=== PATIENT | female | born 1975 | race Caucasian/White ===

== ENCOUNTER → 2017-03-20 | Outpatient (CLI) | payer MEDICARE, MEDICAID ==
[~2017-03-20] MED LIST: /ESCI20TA PO; KEPP1000 PO; TOPA100T PO
[2017-03-22 10:15] LABS: TOPIRAMATE LEVEL 19.8 ug/mL (2.0-25.0)
== END ==
LOC: M LAB 08:39
PROVIDERS: ATTEND Physician Assistant Medical
DX: R56.9 Unspecified convulsions (principal); E55.9 Vitamin D deficiency, unspecified; Z51.81 Encounter for therapeutic drug level monitoring; Z79.899 Other long term (current) drug therapy

== ENCOUNTER 2017-09-10 11:50 | Emergency (ER) | payer MEDICARE, MEDICAID ==
[~2017-09-10] VITALS: Ht 160 cm; Wt 56.8 kg
[~2017-09-10 11:50] MED LIST changes: -AMOX875T PO
[2017-09-10] MEDS ORDERED: AMOX875T PO (12:00)
[2017-09-10 13:09] LABS: BASO % 0.6 % (0.0-1.0); EOS # 0.1 10^3/uL (0.0-0.50); EOS % 1.9 % (0.0-3.0); IMMATURE GRANULOCYTE % 0.4 % (0-0); LYMPH # 1.5 10^3/uL (1.5-4.5); LYMPH % 29.3 % (24.0-44.0); MEAN CORPUSCULAR HEMOGLOBIN 30.6 pg (27.0-33.0); MEAN CORPUSCULAR HGB CONC 32.6 g/dl (32.0-36.5); MEAN CORPUSCULAR VOLUME 93.9 fl (80.0-96.0); MONO # 0.6 10^3/uL (0.0-0.8); MONO % 10.8 % (0.0-5.0); PLATELET COUNT, AUTOMATED 250 10^3/uL (150-450); RED CELL DISTRIBUTION WIDTH 12.9 % (11.5-14.5); WHITE BLOOD COUNT 5.2 10^3/uL (4.0-10.0)
[2017-09-10 13:33] LABS: ANION GAP 8 MEQ/L (8-16); BLOOD UREA NITROGEN 10 MG/DL (7-18); CARBON DIOXIDE LEVEL 23 MEQ/L (21-32); CHLORIDE LEVEL 110 MEQ/L (98-107); CREATININE FOR GFR 0.77 MG/DL (0.55-1.02); GLOMERULAR FILTRATION RATE > 60.0 (>58); GLUCOSE, FASTING 95 MG/DL (70-105); POTASSIUM SERUM 3.9 MEQ/L (3.5-5.1); SODIUM LEVEL 141 MEQ/L (136-145)
--- NOTE | 2017-09-10 14:10 | REP ---
CHEST X-RAY PA AND LATERAL: 09/10/2017 COMPARISON: 08/29/2012, 02/04/2006. CLINICAL HISTORY: Dyspnea and cough. There are clips in the left apex of the chest unchanged. Lungs are well inflated. There is no pleural effusion, lateral pleural thickening or apical scarring on the right. There is mild apical pleural thickening on the left. There is a right-sided aortic arch and descending aorta as seen on previous studies. Heart is mildly enlarged. There is no infiltrate, effusion or pulmonary edema. Bony thorax without compression deformity. IMPRESSION: 1. 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 or acute infiltrate. 2. Surgical clips in the left apex and some minor apical pleural scarring. No interval change. Signed by Dionicio Moise MD 09/10/2017 08:31 P
[2017-09-10 14:55] VITALS: BP 105/57
--- NOTE | 2017-09-11 06:50 | ECGEPIP ---
Stationary ECG Study [facility] - ED Test Date: 2017-09-10 Pat Name: DEMOND TOPETE Department: Room: - Gender: F Testing Engineer: courtney : 1975 Requested By: SUMAN Ordonez Order Number: [id number] Reading MD: Crow Roman Measurements Intervals Rison Rate: 72 P: 33 MI: 144 QRS: 99 QRSD: 113 T: 7 QT: 420 QTc: 462 Interpretive Statements SINUS RHYTHM RIGHT AXIS DEVIATION INCOMPLETE RIGHT BUNDLE BRANCH BLOCK POSSIBLE RIGHT VENTRICULAR HYPERTROPHY NONSPECIFIC T-WAVE ABNORMALITY SIMILAR TO 08/29/12 Electronically Signed On 09-11-2017 6:50:41 EST by Crow Roman
== END 2017-09-10 15:20 | disposition home or self-care (01) ==
LOC: M ED 11:50
DX: R07.9 Chest pain, unspecified (principal); R06.02 Shortness of breath; R56.9 Unspecified convulsions; F41.9 Anxiety disorder, unspecified; R51 Headache; Z95.1 Presence of aortocoronary bypass graft; Z51.81 Encounter for therapeutic drug level monitoring; Z79.899 Other long term (current) drug therapy; Z87.891 Personal history of nicotine dependence

== ENCOUNTER → 2017-09-10 | Outpatient (CLI) | payer MEDICARE, MEDICAID ==
[~2017-09-10] MED LIST changes: +AMOX875T PO
== END ==
LOC: M LAB 11:22
PROVIDERS: ATTEND Physician Assistant Medical
DX: R56.9 Unspecified convulsions (principal); Z51.81 Encounter for therapeutic drug level monitoring; Z79.899 Other long term (current) drug therapy

== ENCOUNTER → 2018-03-11 | Outpatient (REF) | payer MEDICARE, MEDICAID ==
[2018-03-13 00:06] LABS: TOPIRAMATE LEVEL 18.9 ug/mL (2.0-25.0)
[2018-03-14 00:08] LABS: LEVETIRACETAM (KEPPRA) 39.8 ug/mL (10.0-40.0)
== END ==
LOC: M LABNEURO 09:35
DX: G40.909 Epilepsy, unspecified, not intractable, without status epilepticus (principal)
CPT/HCPCS: 36415

== ENCOUNTER → 2018-08-14 | Outpatient (REF) | payer MEDICARE, MEDICAID ==
[2018-08-14 13:23] LABS: BASO % 0.6 % (0.0-1.0); EOS # 0.2 10^3/uL (0.0-0.50); EOS % 2.7 % (0.0-3.0); HEMATOCRIT 45.4 % (36.0-47.0); HEMOGLOBIN 14.5 g/dl (12.0-15.5); IMMATURE GRANULOCYTE % 0.1 % (0-3.0); LYMPH # 2.3 10^3/uL (1.5-4.5); LYMPH % 34.4 % (24.0-44.0); MEAN CORPUSCULAR HEMOGLOBIN 29.9 pg (27.0-33.0); MEAN CORPUSCULAR HGB CONC 31.9 g/dl (32.0-36.5); MEAN CORPUSCULAR VOLUME 93.6 fl (80.0-96.0); MONO # 0.5 10^3/uL (0.0-0.8); MONO % 7.8 % (0.0-5.0); NEUTROPHILS # 3.7 10^3/uL (1.8-7.7); NEUTROPHILS % 54.4 % (36.0-66.0); PLATELET COUNT, AUTOMATED 201 10^3/uL (150-450); RED BLOOD COUNT 4.85 10^6/uL (4.00-5.40); RED CELL DISTRIBUTION WIDTH 14.1 % (11.5-14.5); WHITE BLOOD COUNT 6.8 10^3/uL (4.0-10.0)
[2018-08-14 13:51] LABS: ERYTHROCYTE SEDIMENTATION RATE 2 mm/hr (0-20)
[2018-08-14 14:06] LABS: RHEUMATOID FACTOR QUANT 14.8 IU/ML (<15.0)
[2018-08-14 14:07] LABS: TOTAL 25(OH) VITAMIN D 17.4 NG/ML (30.0-100.0)
[2018-08-18 00:06] LABS: ANTINUCLEAR ANTIBODIES DIRECT Negative (Negative); TOPIRAMATE LEVEL 11.5 ug/mL (2.0-25.0)
[2018-08-19 09:10] LABS: DRVV SCREEN 35.4 SEC
[2018-08-19 09:14] LABS: PTT LUPUS TYPE ANTICOAG SCREEN 0.9 (0-1.2)
== END ==
LOC: M LABNEURO 10:28
DX: R51 Headache (principal); E55.9 Vitamin D deficiency, unspecified; G40.909 Epilepsy, unspecified, not intractable, without status epilepticus; E07.9 Disorder of thyroid, unspecified
CPT/HCPCS: 84443

== ENCOUNTER → 2018-11-12 | Outpatient (REF) | payer MEDICARE, MEDICAID ==
[~2018-11-12] MED LIST changes: +AMOX875T PO
[2018-11-14 14:32] LABS: LEVETIRACETAM (KEPPRA) 16.1 ug/mL (10.0-40.0); TOPIRAMATE LEVEL 13.8 ug/mL (2.0-25.0)
== END ==
LOC: M LABNEURO 10:26
PROVIDERS: ATTEND Physician Assistant Medical
DX: E55.9 Vitamin D deficiency, unspecified (principal); R56.9 Unspecified convulsions

== ENCOUNTER → 2019-02-16 | Outpatient (REF) | payer MEDICARE, MEDICAID ==
[~2019-02-16] MED LIST changes: -/ESCI20TA PO; +LEXA1TAB2 PO
[2019-02-19 14:14] LABS: LEVETIRACETAM (KEPPRA) 18.2 ug/mL (10.0-40.0); TOPIRAMATE LEVEL 12.1 ug/mL (2.0-25.0)
== END ==
LOC: M LABNEURO 09:38
PROVIDERS: ATTEND Physician Assistant Medical
DX: E55.9 Vitamin D deficiency, unspecified (principal); R56.9 Unspecified convulsions; Z79.899 Other long term (current) drug therapy

== ENCOUNTER → 2019-06-22 | Outpatient (CLI) | payer MEDICARE, MEDICAID ==
[2019-06-22 09:05] LABS: HEMATOCRIT 50.9 % (36.0-47.0); MEAN CORPUSCULAR HEMOGLOBIN 29.4 pg (27.0-33.0); MEAN CORPUSCULAR HGB CONC 31.4 g/dl (32.0-36.5); MEAN CORPUSCULAR VOLUME 93.4 fl (80.0-96.0); PLATELET COUNT, AUTOMATED 219 10^3/uL (150-450); RED BLOOD COUNT 5.45 10^6/uL (4.00-5.40); WHITE BLOOD COUNT 6.2 10^3/uL (4.0-10.0)
[2019-06-22 09:37] LABS: ALBUMIN 4.1 GM/DL (3.2-5.2); ALT/SGPT 13 U/L (12-78); BILIRUBIN,TOTAL 0.6 MG/DL (0.2-1.0); BLOOD UREA NITROGEN 12 MG/DL (7-18); CALCIUM LEVEL 8.9 MG/DL (8.5-10.1); CARBON DIOXIDE LEVEL 19 MEQ/L (21-32); CHLORIDE LEVEL 115 MEQ/L (98-107); CREATININE FOR GFR 1.02 MG/DL (0.55-1.30); FERRITIN 6 NG/ML (8-252); GLOMERULAR FILTRATION RATE > 60.0 (>58); GLUCOSE, FASTING 76 MG/DL (70-100); IRON (FE) 77 UG/DL (50-170); MAGNESIUM LEVEL 2.1 MG/DL (1.8-2.4); PERCENT SATURATION 18.9 % (13.2-45.0); POTASSIUM SERUM 4.6 MEQ/L (3.5-5.1); SODIUM LEVEL 142 MEQ/L (136-145); TOTAL IRON BINDING CAPACITY 408 UG/DL (250-450); TOTAL PROTEIN 7.1 GM/DL (6.4-8.2); URIC ACID 3.7 MG/DL (2.6-6.0)
== END ==
LOC: M LAB 08:07
PROVIDERS: ATTEND Pediatrics Pediatric Cardiology
DX: Q21.3 Tetralogy of Fallot (principal)

== ENCOUNTER → 2019-08-07 | Outpatient (CLI) | payer MEDICARE, MEDICAID ==
[2019-08-11 00:14] LABS: TOPIRAMATE LEVEL 10.2 ug/mL (2.0-25.0)
[2019-08-11 08:06] LABS: LEVETIRACETAM (KEPPRA) 17.1 ug/mL (10.0-40.0)
== END ==
LOC: M LABDRWAD 13:18
PROVIDERS: ATTEND Physician Assistant Medical
DX: R56.9 Unspecified convulsions (principal); E55.9 Vitamin D deficiency, unspecified

== ENCOUNTER → 2020-01-20 | Outpatient (REF) | payer MEDICARE, MEDICAID ==
[2020-01-20 12:57] LABS: HEMATOCRIT 49.5 % (36.0-47.0); HEMOGLOBIN 15.8 g/dl (12.0-15.5); MEAN CORPUSCULAR HEMOGLOBIN 29.9 pg (27.0-33.0); MEAN CORPUSCULAR HGB CONC 31.9 g/dl (32.0-36.5); MEAN CORPUSCULAR VOLUME 93.6 fl (80.0-96.0); PLATELET COUNT, AUTOMATED 229 10^3/uL (150-450); RED BLOOD COUNT 5.29 10^6/uL (4.00-5.40); WHITE BLOOD COUNT 6.3 10^3/uL (4.0-10.0)
[2020-01-20 13:20] LABS: ALT/SGPT 14 U/L (12-78); BILIRUBIN,TOTAL 0.5 MG/DL (0.2-1.0); BLOOD UREA NITROGEN 13 MG/DL (7-18); CALCIUM LEVEL 9.1 MG/DL (8.5-10.1); CARBON DIOXIDE LEVEL 22 MEQ/L (21-32); CHLORIDE LEVEL 115 MEQ/L (98-107); CHOLESTEROL LEVEL 183 MG/DL (<200); CHOLESTEROL RISK RATIO 3.388 (<5); CREATININE FOR GFR 0.94 MG/DL (0.55-1.30); GLOMERULAR FILTRATION RATE > 60.0 (>58); GLUCOSE, FASTING 87 MG/DL (70-100); HDL CHOLESTEROL 54 MG/DL (>40); LDL CHOLESTEROL 111 MG/DL (<100); NON-HDL-C 129 MG/DL; POTASSIUM SERUM 4.7 MEQ/L (3.5-5.1); SODIUM LEVEL 142 MEQ/L (136-145); TOTAL PROTEIN 7.2 GM/DL (6.4-8.2); TRIGLYCERIDES LEVEL 92 MG/DL (<150)
== END ==
LOC: M LABDRWAD 12:11
PROVIDERS: ATTEND Family Medicine
DX: Z13.220 Encounter for screening for lipoid disorders (principal); R53.83 Other fatigue; Z79.899 Other long term (current) drug therapy

== ENCOUNTER → 2020-05-20 | Outpatient (REF) | payer MEDICARE, MEDICAID ==
[2020-06-28 13:19] LABS: LEVETIRACETAM (KEPPRA) SEE SEPARATE REPORT
[2020-06-28 13:20] LABS: TOPIRAMATE LEVEL See Separate Report
[2020-07-07 20:32] LABS: BASO # 0.1 10^3/uL (0.0-0.2); BASO % 0.9 % (0.0-1.0); EOS # 0.1 10^3/uL (0.0-0.5); EOS % 1.6 % (0.0-3.0); HEMATOCRIT 49.8 % (36.0-47.0); HEMOGLOBIN 15.4 g/dl (12.0-15.5); MEAN CORPUSCULAR HEMOGLOBIN 29.4 pg (27.0-33.0); MEAN CORPUSCULAR HGB CONC 30.9 g/dl (32.0-36.5); MEAN CORPUSCULAR VOLUME 95.2 fl (80.0-96.0); MONO # 0.4 10^3/uL (0.0-0.8); MONO % 7.6 % (0.0-5.0); NEUTROPHILS # 3.2 10^3/uL (1.5-8.5); NEUTROPHILS % 55.6 % (36.0-66.0); PLATELET COUNT, AUTOMATED 231 10^3/uL (150-450); RED BLOOD COUNT 5.23 10^6/uL (4.00-5.40); WHITE BLOOD COUNT 5.8 10^3/uL (4.0-10.0)
[2020-07-15 18:05] LABS: ALT/SGPT 13 U/L (12-78); BLOOD UREA NITROGEN 13 MG/DL (7-18); CALCIUM LEVEL 8.5 MG/DL (8.5-10.1); CARBON DIOXIDE LEVEL 25 MEQ/L (21-32); CHLORIDE LEVEL 117 MEQ/L (98-107); CREATININE FOR GFR 0.91 MG/DL (0.55-1.30); GLOMERULAR FILTRATION RATE > 60.0 (>58); GLUCOSE, FASTING 59 MG/DL (70-100); POTASSIUM SERUM 4.7 MEQ/L (3.5-5.1); SODIUM LEVEL 144 MEQ/L (136-145)
[2020-07-15 18:06] LABS: ALBUMIN 3.7 GM/DL (3.2-5.2); BILIRUBIN,TOTAL 0.5 MG/DL (0.2-1.0); TOTAL 25(OH) VITAMIN D 64.7 NG/ML (30.0-100.0); TOTAL PROTEIN 6.5 GM/DL (6.4-8.2)
== END ==
LOC: M LABDRWAD 10:03
PROVIDERS: ATTEND Physician Assistant Medical
DX: R56.9 Unspecified convulsions (principal); E55.9 Vitamin D deficiency, unspecified; Z79.899 Other long term (current) drug therapy

== ENCOUNTER → 2020-12-05 | Outpatient (CLI) | payer MEDICARE, MEDICAID ==
--- NOTE | 2020-12-05 11:09 | REP ---
INDICATION: SHORTNESS OF BREATH, LABS FIRST THEN XRAY COMPARISON: 09/10/2017 TECHNIQUE: PA and lateral. FINDINGS: The mediastinum and cardiac silhouette are stable. Right aortic arch again noted. Cardiac silhouette is within normal limits. Lung best demonstrate chronic appearing changes without acute consolidation, effusion, or pneumothorax. Surgical clips in the left apex again noted. Skeletal structures intact. IMPRESSION: Chronic stable changes. No acute process appreciated. <Electronically signed by Bert Sahu > 12/05/20 1105
[2020-12-05 11:18] LABS: HEMOGLOBIN 15.8 g/dl (12.0-15.5); MEAN CORPUSCULAR HEMOGLOBIN 29.2 pg (27.0-33.0); MEAN CORPUSCULAR VOLUME 94.3 fl (80.0-96.0); PLATELET COUNT, AUTOMATED 201 10^3/uL (150-450); RED BLOOD COUNT 5.41 10^6/uL (4.00-5.40); WHITE BLOOD COUNT 5.1 10^3/uL (4.0-10.0)
[2020-12-05 12:08] LABS: ALBUMIN 4.2 GM/DL (3.2-5.2); ALT/SGPT 19 U/L (12-78); BILIRUBIN,TOTAL 0.3 MG/DL (0.2-1.0); BLOOD UREA NITROGEN 19 MG/DL (7-18); CALCIUM LEVEL 8.9 MG/DL (8.5-10.1); CARBON DIOXIDE LEVEL 23 MEQ/L (21-32); CHLORIDE LEVEL 113 MEQ/L (98-107); GLOMERULAR FILTRATION RATE > 60.0 (>58); GLUCOSE, FASTING 81 MG/DL (70-100); POTASSIUM SERUM 4.2 MEQ/L (3.5-5.1); SODIUM LEVEL 142 MEQ/L (136-145); TOTAL PROTEIN 7.1 GM/DL (6.4-8.2)
== END ==
LOC: M LAB 09:43
PROVIDERS: ATTEND Family Medicine
DX: R06.02 Shortness of breath (principal)

== ENCOUNTER 2021-04-02 18:33 | Emergency (ER) | payer MEDICARE, MEDICAID ==
[~2021-04-02] VITALS: Ht 162.6 cm; Wt 54.0 kg
[2021-04-02] MEDS ORDERED: NORCO, ANEXSIA 5/325MG TABLET (HYDROcodone/ACETAMINOPHEN) PO ONE (19:25)
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
[2021-04-02] MEDS ORDERED: IBUP-1022 PO (23:39)
[2021-04-02] MEDS ORDERED: HYDR-4571 PO (23:39)
[2021-04-03 00:50] VITALS: BP 100/53
== END 2021-04-03 00:51 | disposition home or self-care (01) ==
LOC: M ED 18:33
DX: S32.10XA Unspecified fracture of sacrum, initial encounter for closed fracture (principal); Y04.8XXA Assault by other bodily force, initial encounter; Y92.018 Other place in single-family (private) house as the place of occurrence of the external cause; G40.909 Epilepsy, unspecified, not intractable, without status epilepticus; G43.909 Migraine, unspecified, not intractable, without status migrainosus; F41.9 Anxiety disorder, unspecified; Z79.899 Other long term (current) drug therapy; Z88.1 Allergy status to other antibiotic agents; Z88.2 Allergy status to sulfonamides

== ENCOUNTER 2021-07-26 13:23 | Emergency (ER) | payer MEDICARE, MEDICAID ==
[~2021-07-26] VITALS: Ht 157.5 cm; Wt 58.4 kg
[~2021-07-26 13:23] MED LIST changes: +HYDR-4571 PO; +IBUP-1022 PO
--- OUTSIDE RECORDS SUMMARY | 2021-07-26 13:37 | CCD | Continuity of Care Document ---
Author Author Katiana HICKS P.A.-C. Organization Unknown Address [address] [place] [id number] Phone [phone] Care Team Providers Care Risk Developer Name Role Phone Rommel Dinero M.D. AUTM [phone] Problems Description No Information Available Social History Type Date Description Comments Sex Unknown Allergies and adverse reactions Active Allergies Criticality Reaction | Severity Comments Date Sulfa Antibiotics Unable to assess criticality hives 12/16/2012 Imitrex Unable to assess criticality dizziness an d nausea 03/18/2014 Excedrin Unable to assess criticality excessive va ginal bleeding 09/17/2014 Medications Active Medications SIG Qnty Indications Ordering Provide r Date Vitamin D (Ergocalciferol) 1.25mg (60523 Ut) Capsules Take 1 Capsule By Mouth Once A Week 4caps Yariel Diaz M.D. 08/28/2019 Levetiracetam 750mg Tablets Take One Tablet By Mouth Twice A Day Maximum Daily Dose = 2 60tabs Yariel Diaz M.D. 10/03/2018 Hydroxyzine HCL 10mg Tablets Take One Tablet By Mouth Twice A Day as Needed Maximum Daily Dose = 2 60tabs F51.02 Yariel Diaz M.D. 09/19/2016 Topiramate 100mg Tablets Take 1 & 1/2 Tablets By Mouth Two Times A Day Maximum Daily Dose = 3 90tabs Yariel Diaz M.D. 10/14/2013 Escitalopram Oxalate 20mg Tablets Take One Tablet By Mouth Every Day 30tabs Yariel Diaz M.D. 11/08 Immunizations Description No Information Available Vital Signs Date Vital Result Comment 01/13/2021 6:28am BP Systolic 90 mmHg BP Diastolic 60 mmHg Heart Rate 76 /min Respiratory Rate 16 /min 05/16/2020 5:32am BP Systolic 110 mmHg BP Diastolic 60 mmHg Heart Rate 68 /min Respiratory Rate 16 /min Results Test Acquired Date Facility Test Result H/L Range Note Laboratory test finding 07/06/2021 [facility] [place] Vitamin D, 25-Hydroxy 52.5 ng/mL 30.0-100.0 1, 2 Topiramate (Topamax), Serum 17.0 ug/mL 2.0-25.0 3 Levetiracetam (Keppra), S 32.7 ug/mL 10.0-40.0 4 PDF [id number] SEE IMAGE 1 A courtesy copy of this repo rt has been sent to [phone] 2 Vitamin D deficiency has bee n defined by the [place] [employer] and an Endocrine Society practice guideline as a level of serum 25-OH vitamin D less than 20 ng/mL (1,2). The Endocrine Society went on to further define vitamin D insufficiency as a level between 21 and 29 ng/mL (2). 1. IOM ([place] [employer]). 2010. Di etary reference intakes for calcium and D. [place]: The National Academies Press. 2. Cindi MF, Marianne [place], Palomo-Bubba flores MARSH, et al. Evaluation, treatment, and prevention of vitamin D deficiency: an Endocrine Society clinical practice guideline. JCEM. 2011 Apr; 96(7):1911-30. 3 Detection Limit = 1.5 4 This test was developed and its performance characteristics determined by [facility]. It has not been cleared or approved by the Food and Drug Administration. 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 07/14/2021 G40.89 Other seizures Virginia Hicks, P.A.-C. 07/14/2021 M54.2 Cervicalgia Virginia Hicks, P.A.-C. 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 07/14/2021 F41.1 Generalized anxiety disorder Dorothy Hicks, P.A.-C. 07/14/2021 F51.02 Adjustment insomnia Virginia sanders, P.A.-C. 06/07/2021 G43.709 Chronic migraine wit hout aura, not intractable, without status migrainosus Virginia Hicks, P.A.-C. 06/07/2021 G40.89 Other seizures Virginia Hicks, P.A.-C. 06/07/2021 M54.2 Cervicalgia Virginia Hicks, P.A.-C. 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 06/07/2021 F41.1 Generalized anxiety disorder Dorothy Hicks, P.A.-C. 06/07/2021 F51.02 Adjustment insomnia Virginia sanders, P.A.-C. 01/13/2021 G40.89 Other seizures Virginia Hicks, P.A.-C. 01/13/2021 G43.709 Chronic migraine wit hout aura, not intractable, without status migrainosus Virginia Hicks, P.A.-C. 01/13/2021 M54.2 Cervicalgia Virginia Hicks, P.A.-C. 01/13/2021 F51.02 Adjustment insomnia Virginia sanders, P.A.-C. 01/13/2021 F41.1 Generalized anxiety disorder Dorothy Hicks P.A.-C. 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 Plan of Treatment No Information Available Functional Status Description No Information Available Mental Status Description No Information Available Referrals Description No Information Available"
--- OUTSIDE RECORDS SUMMARY | 2021-07-26 13:37 | CCD | Continuity of Care Document ---
Author Author International First Officer, Katiana Prasanth Organization Unknown Address Unknown Phone Unavailable Care Team Providers Care Certified Ophthalmic Assistant Name Role Phone Bar WEBBER, Rommel Unavailable Raquel Fischer MD Unavailable [phone] Tato Francis MD Unavailable Chuck Conklin MD Unavailable Marian Brian LPN Unavailable Unavailable Jasmyne Reeves Unavailable Unavailable Zaira Saul LPN Unavailable Unavailable Lauren Francis Unavailable Unavailable Willard Amaya MD Unavailable Jory Paulino Unavailable Unavailable Problems ANEURYSM, ASCENDING, AORTIC (DILATION) MD Aaliyah (441.9) Arvind García AORTIC ARCH, ANOMOLY OF (RAA,DAA, RINGS) MD Willard Amaya SUBCLAV (747.21) 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) MD Aaliyah (459.89) Arvind García Brain abscess (Renamed from Abscess of MD Aaliyah brain) (G06.0) (324.0) Arvind García Cyanosis (Renamed from Blue color skin) MD Aaliyah (R23.0) (782.5) Arvind García Fatigue MD Arvind Fischer Palpitations MD Arvind Fischer Pulmonary valve atresia, 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 as needed (10 MG) levETIRAcetam 750 MG Oral Tablet; one two times daily (750 MG) LEXAPRO, 20MG (Oral Tablet); 1 daily (20 MG) Multivitamin Women Oral Tablet; 1 hugo y Topiramate 100 MG Oral Tablet; 1 1/2 two times daily (100 MG) Vitamin D 38367 U Oral Tablet; weekly (68308 U) Escitalopram Oxalate 20 MG Oral Tablet; Status: Gail ctive one daily (20 MG) KEPPRA, 750MG (Oral Tablet); 2 daily Status: Inact savanah (750 MG) Procedures 2D CONGENITAL COMPLETE (51467) Status: Completed Sep-2012 DOPPLER ECHO EXAM, HEART, COMPLETE Status: Complete d 10-Sep-2012 (12463) DOPPLER COLOR DOM MAPPING (37011) Status: Completed 10-Sep-2012 Veornica-Taussig shunt in pediatric Status: Complete d patient (63356) ECG Routine, 12 Lead (79218) Status: Completed 25-May-2021 Jory Paulino - [MEASUREMENTS ANALYSIS] Date of Test: 05/25/2021 08:32:57; Heart Rate: 74; DE Interval: 140; QRS: 114; QT Interval: 442; Corrected QT Interval (QTc): 466; P Wave [place]: 57; QRS Wave [place]: 95; T Wav e [place]: -21; Blood Pressure: 106/59 [ECG DIAGNOSTIC STATEMENTS] Date of Test: 05/25/2021 08:32:57; Summary: See Note ECG Routine, 12 Lead ([id number]) Status: Completed 09-Feb-2021 KERRI Brian - [MEASUREMENTS ANALYSIS] Date of Test: 02/09/2021 10:09:36; Heart Rate: 63; DE Interval: 170; QRS: 114; QT Interval: 442; Corrected QT Interval (QTc): 447; P Wave [place]: 70; QRS Wave [place]: 125; T Wave [place]: 28; Blood Pressure: 105/60 [ECG DIAGNOSTIC STATEMENTS] Date of Test: 02/09/2021 10:09:36; Summary: See Note 2D CONGENITAL COMPLETE (36673) Status: Completed 13-Dec-2020 Reeves Jasmyne - Procedure Note: See Note, See Note ECG Routine, 12 Lead (56461) Status: Completed 13-Dec-2020 Kg KERRI Zaira - [MEASUREMENTS ANALYSIS] Date of Test: 12/13/2020 11:14:50; Heart Rate: 66; DE Interval: 164; QRS: 114; QT Interval: 432; Corrected QT Interval (QTc): 442; P Wave [place]: 67; QRS Wave [place]: 132; T Wave [place]: 27; Blood Pressure: 113/68 [ECG DIAGNOSTIC STATEMENTS] Date of Test: 12/13/2020 11:14:50; Summary: See Note US echocardiogram for determining Status: Completed pericardial effusion (20496) 31-May-2020 MD Arvind Fischer J - Procedure Note: See Note; [facility] ASSOCIATESE[facility]phania ECHOCARDIOGRAPHY REPORT Pat.Name: Katiana Ingram I Pat.ID: [id number] .Date: 05/31/2020 Refer.MD: Arvind Fischer Exam Time: 2:01:00 PM Study Type:Pediatric Echo Height: 62.99in Weight: 123.87lb BSA: 1.58 m2 Age: 1 1975,44Y Sex: FEMALE Sonogrphr: H m Order ID: [id number] Race: C SUMMARY: 2D STUDY: There is levocardia, levoversio n and {S,D,S} tetralogy of Fallot post BT shunt. There is RV enlargement and hypertrophy with flat ventricular septu m in systole consistent with significant RV systolic hypertension. The chambers are otherwise normal in size, thickness and systolic function. Venous return appears normal. There is a large malalignment ventricular septal defect with severe RV outflow tract hypoplasia and aortic override. No other septal defects are seen. The mitral and tricuspid valves appear normal. The aortic valve, aortic root and ascending aorta are severely enlarged. No discernible pulmonary valve is seen. Th e left ventricular outflow tract is patent. The main and branch pulmonary arteries could not be visualized. The aortic arch is right sided and there is no obvious coarctation. There is no pericardial effusion. There are no obvious intracardiac masses. COLOR/DOPPLER STUDY: The color flow mapping demonstrates mild tricuspid and mild aortic valve incompetence directed towards the crest of the ventricular septum. Antegrade flow across the RVOT could not be demonstrated. There is bidirectional ventricular shunting across a large malalignment VSD. There is obligatory systemic RV pressure. There is no obvious atrial shunting. Shunt flow is demonstrated with a maximum Doppler gradient of 80 mmHg an d slow diastolic decay of the Doppler signal consistent with flow restriction . Flow into the branch pulmonary arteries was difficult to demonstrate. DIAGNOSIS : {S,D,S} tetralogy of Fallot with no antegrade RVOT flow demonstrated Post B T shunt, patent, restrictive Large malalignment VSD with bidirectional ventricular shunt Branch pulmonary arteries difficult to visualize Mild-moderate aortic incompetence Aorti c root and ascending aorta enlargement, severe Right aortic arch Tricuspid valv e incompetence, mild Obligate systemic RV pressure MEASUREMENTS: 2 D Aorta Ao Rtd 4.81 cm (zsc 8.1) Aortic Valve AV iggy 3.34 cm (zsc 8.5) Mitral Valve MV iggy 3.04 cm (zsc 1.1) MMODE Left Ventricle LV Ma/ht 84.65 g/m2.7 Left and Right Ventricles RVIDd 1.07 cm LV SV 73.79 ml LVIDd 5.22 cm (zsc 1.3) LV CO 4.88 l/min LVIDs 3.66 cm (zsc 1.8 ) LV CI 3.09 l/m/m LV%fs 29.83 % (zsc -1.1) HR 66 bpm IVSs 1.56 cm (zsc 1.9) IVSd 1.5 cm (zsc 4.4) LVPWs 1.64 cm (zs c 1.4) LVPWd 1.24 cm (zsc 3.5) LVEDV 130.41 ml LV Mass 301.09 g (zsc 3.7) LVESV 56.62 ml LV Ma/ht 188.19 g/m LV EF 56.59 % LV MaIx 190.56 g/m DOPPLER PA Sys Press TI arlette 522.52 cm/s RA Pres s 5 mmHg RV-RA PG 109.21 mmHg SysP TV 114.21 mmHg Pressure Gradient PG 84.98 mmHg Signed 05/31/2020 2:36:00 PM José Luis Matamoros ; This result contains an attachment that could not be included. ECG Routine, 12 Lead ([id number]) Status: Completed 31-May-2020 KERRI Saul - [MEASUREMENTS ANALYSIS] Date of Test: 05/31/2020 13:42:08; Heart Rate: 68; DE Interval: 144; QRS: 114; QT Interval: 432; Corrected QT Interval (QTc): 446; P Wave [place]: 50; QRS Wave [place]: 104; T Wave [place]: -1; Blood Pressure: 109/68 [ECG DIAGNOSTIC STATEMENTS] Date of Test: 05/31/2020 13:42:08; Summary: See Note 2D CONGENITAL COMPLETE (35042) Status: Completed 19-Jun-2019 Jasmyne Reeves - Procedure Note: See Note; [facility] ASSOC[facility]ATESLaminLPa ECHOCARDIOGRAPHY REPORT Pat.Name: Katiana Ingram I Pat.ID: [id number] St.Date: 06/19/2019 Refer.MD: Arvind Fischer Exam Time: 12:34:00 PM Stud y Type:Pediatric Echo Height: 62.99in Weight: 116.61lb BSA: 1.54 m2 Age: 1 1975,43Y Sex: FEMALE Sonogrphr: Tereza Reeves Order ID: [id number] Race: C SUMMARY: 2D STUDY: There is levocardia, levoversio n and {S,D,S} tetralogy of Fallot post BT shunt. There is RV enlargement and hypertrophy with flat ventricular septu m in systole consistent with significant RV systolic hypertension. The chambers are otherwise normal in size, thickness and systolic function. Venous return appears normal. There is a large malalignment ventricular septal defect with severe RV outflow tract hypoplasia and aortic override. No other septal defects are seen. The mitral and tricuspid valves appear normal. The aortic valve, aortic root and ascending aorta are severely enlarged. No discernible pulmonary valve is seen. Th e left ventricular outflow tract is patent. The main and branch pulmonary arteries could not be visualized. The aortic arch is right sided and there is no obvious coarctation. There is no pericardial effusion. There are no obvious intracardiac masses. COLOR/DOPPLER STUDY: The color flow mapping demonstrates mild tricuspid and mil-moderate aortic valve incompetence directed towards the crest of the ventricular septum. Antegrade flow across the RVOT could not be demonstrated. There is bidirectional ventricular shunting across a large malalignment VSD. There is obligatory systemic RV pressure. There is no obvious atrial shunting. Shunt flow is demonstrated with a maximum Doppler gradient of 70 mmHg and slow diastolic decay of the Doppler signal consistent with flow restriction. Flow into the branch pulmonary arteries was difficult to demonstrate. DIAGNOSIS: {S,D,S} tetralogy of Fallot with no antegrade RVOT flow demonstrated Post BT shunt, patent, restrictive Large malalignment VSD with bidirectional ventricular shun t Branch pulmonary arteries difficult to visualize Mild-moderate aortic incompetence Aortic root and ascending aorta enlargement, severe Right aortic arch Tricuspid valve incompetence, mild Obligate systemic RV pressure MEASUREMENTS: MMODE Left Ventricle LV Ma/ht 47.36 g/m2.7 Left and Right Ventricles RVIDd 1.41 cm LV SV 85.29 ml LVIDd 5.71 cm (zsc 2.9) LV CO 5.69 l/min LVIDs 4.12 c m (zsc 3.4) LV CI 3.7 l/m/m LV%fs 27.78 % (zsc -1.7) HR 67 bpm IVSs 1.04 cm (zsc -1.1) IVSd 0.81 cm (zsc -0.6) LVPWs 1.5 cm (zsc 0.7) LVPWd 0.78 cm (zsc -0.5) LVEDV 160.4 ml LV Mass 168.45 g (zsc 1.1) LVESV 75.11 ml LV Ma/ht 105.29 g/m LV EF 53.17 % LV MaIx 109.38 g/m DOPPLER MV Forward Flow MV pkE 112 cm/s MV E/A 1.6 MV pkA 71.7 cm/s TV Regurg Flow TV pkVel 485 cm/s TV pkPG 94 mmHg Pressure Gradient PG 76.42 mmHg 2D Parasternal Long [place] LA Dim 2.15 cm Ao An 3.3 cm (zsc 8.6) LA/Ao 0.5 Ao Rt d 4.34 cm (zsc 6.6) Aorta Ao Rtd 4.71 cm (zsc 8) Aortic Valve AV iggy 3.27 cm (zsc 8.4) Tricuspid Valve TV iggy 2.48 cm (zsc -0.9) Signed 06/19/2019 03:52 PM José Luis Matamoros ; This result contains an attachment that could not be included. ECG Routine, 12 Lead ([id number]) Status: Completed 19-Jun-2019 KERRI Brian - [MEASUREMENTS ANALYSIS] Date of Test: 06/19/2019 12:30:14; Heart Rate: 68; DE Interval: 166; QRS: 114; QT Interval: 444; Corrected QT Interval (QTc): 458; P Wave [place]: 71; QRS Wave [place]: 106; T Wave [place]: 27; Blood Pressure: 108/63 [ECG DIAGNOSTIC STATEMENTS] Date of Test: 06/19/2019 12:30:14; Summary: See Note ECG Routine, 12 Lead ([id number]) Status: Completed 10-Sep-2012 - [MEASUREMENTS ANALYSIS] Date of Test: 09/10/2012 10:11:22; Heart Rate: 72; DE Interval: 146; QRS: 120; QT Interval: 420; Corrected QT Interval (QTc): 441; P Wave [place]: 42; QRS Wave [place]: 101; T Wave [place]: 26; Blood Pressure: 118/58 [ECG DIAGNOSTIC STATEMENTS] Date of Test: 09/10/2012 10:11:22; See Note Family History Family History Status: Active Comments: There is no known family history of congenital heart disease, early myocardial infarction, significan t arrhythmia or sudden cardiac . Social History Social History Comments: She is f rom her . Katiana lives with her 17-year-old son. She is not working at this time. She has never smoked. Tobacco use:; Never smoker. Never smoked tobacco Female Plan of Treatment Pulse Oximetry (12342) Start: 25-May-2021 Intent PA-shari or non shari (48505) Start: 14-Mar-2021 Intent AA/DA-shari or non shari (60603) Start: 14-Mar-2021 Intent RV/RA-shari or non shari (37011) Start: 14-Mar-2021 Intent LV or LA-congenital (99371) Start: 14-Mar-2021 Intent R & Retro LH congenital (96720) Start: 14-Mar-2021 Intent Pulse Oximetry (72983) Start: 09-Feb-2021 Intent Event Recorder Interp. and Report Start: 13-Dec-2020 Inte nt (66127) Event Record Pantograph Ii Engraver (80519) Start: 13-Dec-2020 Intent DOPPLER COLOR DOM MAPPING (61983) Start: 13-Dec-2020 Inte nt DOPPLER ECHO EXAM, HEART, COMPLETE Start: 13-Dec-2020 Int ent (08016) Pulse Oximetry (86356) Start: 13-Dec-2020 Intent DOPPLER COLOR DOM MAPPING (34765) Start: 31-May-2020 Inte nt DOPPLER ECHO EXAM, HEART, COMPLETE Start: 31-May-2020 Int ent ([id number]) 2D CONGENITAL COMPLETE (20861) Start: 31-May-2020 Intent Pulse Oximetry (30160) Start: 31-May-2020 Intent Holter & Interpretation (86976) Start: 19-Jun-2019 Intent DOPPLER COLOR DOM MAPPING (82535) Start: 19-Jun-2019 Inte nt DOPPLER ECHO EXAM, HEART, COMPLETE Start: 19-Jun-2019 Int ent ([id number]) Medical; ADULT PATIENT 30 - 6m Start: 23-Nov-2021 Appoint ment Request [facility] 9:30 MD Arvind Fischer Results No Known Results No Result Information Available Vital Signs 25-May-2021 8:25 Pulse 67 /min Comments: Pattern: Regular O2 SAT 85 % Comments: Room air BP Systolic 106 Comments: Patient Position: Supine; Cuff mm[Hg] Location: Right Arm; Cuff S ize: Standard BP Diastolic 59 Comments: Patient Position: Supine; Cuff mm[Hg] Location: Right Arm; Cuff S ize: Standard Weight 56.8 kg Height 165 cm BMI 20.86 kg/m2 BSA 1.62 m2 09-Feb-2021 10:01 Pulse 63 /min Comments: Pattern: Regular O2 SAT 86 % Comments: Room air BP Systolic 105 Comments: Patient Position: Supine; Cuff mm[Hg] Location: Right Arm; Cuff S ize: Standard BP Diastolic 60 Comments: Patient Position: Supine; Cuff mm[Hg] Location: Right Arm; Cuff S ize: Standard Weight 86 kg Height 160 cm BMI 33.59 kg/m2 BSA 1.89 m2 13-Dec-2020 11:08 Pulse 66 /min Comments: Pattern: Regular O2 SAT 83 % Comments: Room air BP Systolic 113 Comments: Patient Position: Supine; Cuff mm[Hg] Location: Right Arm; Cuff S ize: Standard BP Diastolic 68 Comments: Patient Position: Supine; Cuff mm[Hg] Location: Right Arm; Cuff S ize: Standard Weight 54.6 kg Height 160 cm BMI 21.33 kg/m2 BSA 1.56 m2 31-May-2020 13:33 Pulse 68 /min Comments: Pattern: Regular O2 SAT 88 % Comments: Room air BP Systolic 109 Comments: Patient Position: Supine; Cuff mm[Hg] Location: Right Arm; Cuff S ize: Standard BP Diastolic 68 Comments: Patient Position: Supine; Cuff mm[Hg] Location: Right Arm; Cuff S ize: Standard Weight 56.3 kg Height 160 cm BMI 21.99 kg/m2 BSA 1.58 m2 19-Jun-2019 12:23 Pulse 68 /min Comments: Pattern: Regular BP Systolic 108 Comments: Patient Position: Supine; Cuff mm[Hg] Location: Right Arm; Cuff S ize: Standard BP Diastolic 63 Comments: Patient Position: Supine; Cuff mm[Hg] Location: Right Arm; Cuff S ize: Standard Weight 53.6 kg Height 160 cm BMI 20.94 kg/m2 BSA 1.55 m2 10-Sep-2012 10:02 Pulse 72 /min Comments: Pattern: Regular BP Systolic 118 Comments: Patient Position: Sitting; mm[Hg] Cuff Location: Right Arm; C uff Size: Standard BP Diastolic 58 Comments: Patient Position: Sitting; mm[Hg] Cuff Location: Right Arm; C uff Size: Standard Weight 53.5 kg Height 160 cm BMI 20.90 kg/m2 BSA 1.55 m2 Encounters Review 25-May-2021 8:19 Encounter Diagnosis:[facility]pecified [facility] Procedure Only 14-Mar-2021 8:00 To Encounter Diagnosis:Tetralogy of Fallot 28-Mar-2021 11:28 (Renamed from Fallot tetralogy), Pediatric Cardiolog y Pulmonary valve atresia, acquired , [facility] AORTIC ARCH, ANOMOLY OF (RAA,DAA, RINGS ) SUBCLAV Office Visit 09-Feb-2021 10:00 To Encounter Reason:Office Visit - Note for 09-Feb-2021 10:55 "Office Visit": Ms. 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 She remains otherwise unoperated. She had been followed by our group until 09/10/12 and was lost to follow up until ~1 year ago. Our group last discussed her case in conference on January 10, 2010 and reviewed her previous catheterization as well as a more updated MRI and felt that she should be strongly considered to undergo repair a t that point. The group felt that not only would she need VSD patch repair as well as an RV-PA valved conduit; but, she would also require a Bentall procedure becaus e of very dilated ascending aorta and aortic root with some aortic insufficiency. The option of waiting until she was sicker and then going to transplant was also discussed.She had been without follow-up since that time - admittedly of her own choosing. She attributes thi s to complex medical and social issues. She was diagnosed with melanoma that required extensive resection. This was successful per report. She has since been and her brother . As such, she was "in no place to have surgery."Her past history is notable for an episode in chest pain in 2011 resulting in a cardiac catheterization. This was accomplished on September 01, 2012 and the angiograms showed that her coronary arteries were clean by report.Since re-establishing care, geraldine has been relatively free of symptoms. Our hope was to perform cMRI to reassess her anatomy/physiology. However, we decided to hold off during the pandemic. She had started working a [employer]. This was the first time she has worked in ~20 years. She was enjoying it and was not having issues. She still follows with a neurologist fo r a history of brain abscess and seizures.She has done well since her last visit. An event monitor was placed and demonstrated predominantly PVCS. He r palpitations are unchanged. She has not passed out. This is a new feeling that she has never had. Episodes last a few seconds to minutes. She still feels tired/sleepy. She is able to work. Lab evaluation for this has been unrevealing. There has been no significant change in her exercise capacity. There have been no fevers, weight loss, night sweats. She has cyanosis at baseline. Encounter Diagnosis:Tetralogy of Fallot (Renamed from Fallot tetralogy), Palpitations, Fatigue, Cyanosis (Rename d from Blue color skin), Brain abscess (Renamed from Abscess of brain), Seizur e disorder, ANEURYSM, ASCENDING, AORTIC (DILATION) , Aortopulmonary collateral vessel, AORTIC ARCH, ANOMOLY OF (RAA,DAA, RINGS) SUBCLAV Procedure Only 13-Dec-2020 17:00 To Encounter Diagnosis:Palpitations 07-Mar-2021 15:[address] [facility] Office Visit 13-Dec-2020 11:00 To Encounter Reason:Office Visit - Note for 13-Dec-2020 12:19 "Office Visit": Ms. Ingram returns today Pediatric C ardiology for follow-up of tetralogy of Fallot [facility] with acquired pulmonary valve atresia and large aortopulmonary collaterals fo r which she has undergone a left modified Veronica-Taussig shunt back in October 1983. She remains otherwise unoperated. She had been followed by our group until 09/10/12 and was lost to follow up until ~1 year ago. Our group last discussed her case in conference on January 10, 2010 and reviewed her previous catheterization as well as a more updated MRI and felt that she should be strongly considered to undergo repair a t that point. The group felt that not only would she need VSD patch repair as well as an RV-PA valved conduit; but, she would also require a Bentall procedure becaus e of very dilated ascending aorta and aortic root with some aortic insufficiency. The option of waiting until she was sicker and then going to transplant was also discussed.She had been without follow-up since that time - admittedly of her own choosing. She attributes thi s to complex medical and social issues. She was diagnosed with melanoma that required extensive resection. This was successful per report. She has since been and her brother . As such, she was "in no place to have surgery."Her past history is notable for an episode in chest pain in 2011 resulting in a cardiac catheterization. This was accomplished on September 01, 2012 and the angiograms showed that her coronary arteries were clean by report.Since re-establishing care, whe has been relatively free of symptoms. Our hope was to perform cMRI to reassess her anatomy/physiology. However, we decided to hold off during the pandemic. She had started working a [employer]. This was the first time she has worked in ~20 years. She was enjoying it and was not having issues. She still follows with a neurologist fo r a history of brain abscess and seizures.However, since her last visit she has had complaints of palpitations and tiredness. She has noted increased frequency of palpitations that she describes as "suddenly feeling like my heart is pounding" and "like getting punched in the chest." She feels dizzy when this happens. She has not passed out. This is a new feeling that she has never had. Episodes last a few seconds to minutes. She also feels tired/sleepy . She has had to cut back on her work hours because "I'm just exhausted." There has been no significant change in her exercise capacity. There have been no fevers, weight loss, night sweats. She was recently evaluated at an urgent care center. A CXR was negative for infiltrates. A CMP was unremarkable. He r CBC demonstrated a WBC 5.1, RBC 5.4, HC T 15.8, PLT 201. Her RBC/HCT has been stable and mildly elevated from chronic cyanosis with a baseline sat ~85%. Her COVID testing was negative.She has cyanosis at baseline. Encounter Diagnosis:Tetralogy of Fallot (Renamed from Fallot tetralogy), Aortopulmonary collateral vessel, ANEURYSM, ASCENDING, AORTIC (DILATION) , Seizure disorder, Brain abscess (Rename d from Abscess of brain), Cyanosis (Renamed from Blue color skin), Palpitations, Fatigue Procedure Only 13-Dec-2020 11:00 To Encounter Diagnosis:Tetralogy of Fallot 13-Dec-2020 1 1:52 (Renamed from Fallot tetralogy) Pediatric Cardiology [facility] Procedure Only 31-May-2020 13:58 Encounter Diagnosis:Tetralogy of Fallot To 31-May-20 20 14:47 (Renamed from Fallot tetralogy) Pediatric Cardiology [facility] Office Visit 31-May-2020 13:29 Encounter Reason:Office Visit - Note for To 020 14:44 "Office Visit": Ms. Ingram was last seen Pediatric Ca rdiology on 09/10/[address] Conklin. [facility]. 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 She remains otherwise unoperated. Our group last discussed her case in conference on January 10, 2010 and reviewe d her previous catheterization as well as a more updated MRI and felt that she should be strongly considered to underg o repair at that point. The group felt that not only would she need VSD patch repair as well as an RV-PA valved conduit; but, she would also require a Bentall procedure becaus e of very dilated ascending aorta and aortic root with some aortic insufficiency. The option of waiting until she was sicker and then going to transplant was also discussed.She had been without follow-up since that time - admittedly of her own choosing. She attributes thi s to complex medical and social issues. She was diagnosed with melanoma that required extensive resection. This was successful per report. She has since been and her brother . As such, she was "in no place to have surgery."Her past history is notable for an episode in chest pain in 2011 resulting in a cardiac catheterization. This was accomplished on September 01, 2012 and the angiograms showed that her coronary arteries were clean in fact. She offers no complaints. She denies chest pain, palpitations, syncope, exercise intolerance. She has cyanosis at baseline.Since her last visit, she has done well. She has started working at [employer]. This is the first time joaquin carrillo has worked in ~20 years. She is enjoyin g it and is not having issues. She still follows with a neurologist for a histor y of brain abscess and seizures. Encounter Diagnosis:Tetralogy of Fallot (Renamed from Fallot tetralogy), Pulmonary valve atresia, acquired , AORTIC ARCH, ANOMOLY OF (RAA,DAA, RINGS ) SUBCLAV , Cyanosis (Renamed from Blue color skin), Brain abscess (Renamed fro m Abscess of brain), Seizure disorder, ANEURYSM, ASCENDING, AORTIC (DILATION) (441.9), Aortopulmonary collateral vessel Procedure Only 19-Jun-2019 13:55 Encounter Diagnosis:Tetralogy of Fallot To 25-Jun-20 15:26 (Renamed from Fallot tetralogy) [facility] Procedure Only 19-Jun-2019 12:28 Encounter Diagnosis:Aortopulmonary To 19-Jun-2019 12 :30 collateral vessel Pediatric Cardiology [facility] Office Visit 19-Jun-2019 12:20 Encounter Reason:Office Visit - Note for To 13-Jul-20 15:40 "Office Visit": Ms. Ingram was last seen Pediatric Ca rdiology on 09/10/[address] Conklin. [facility]. 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 She remains otherwise unoperated. Our group last discussed her case in conference on January 10, 2010 and reviewe d her previous catheterization as well as a more updated MRI and felt that she should be strongly considered to underg o repair at that point. The group felt that not only would she need VSD patch repair as well as an RV-PA valved conduit; but, she would also require a Bentall procedure becaus e of very dilated ascending aorta and aortic root with some aortic insufficiency. The option of waiting until she was sicker and then going to transplant was also discussed.she has been without follow-up since that time - admittedly of her own choosing. She attributes thi s to complex medical and social issues. She was diagnosed with melanoma that required extensive resection. This was successful per report. She has since been and her brother . As such, she was "in no place to have surgery."She is currently living i [facility] with her 17 year old son. She is not working. Her past history is notable for an episode in chest pain in 2011 resulting in a cardiac catheterization. This was accomplished on September 01, 2012 and the angiograms showed that her coronary arteries were clean in fact. She offers no complaints. She denies chest pain, palpitations, syncope, exercise intolerance. She has cyanosis at baseline. Encounter Diagnosis:Tetralogy of Fallot (Renamed from Fallot tetralogy), Aortopulmonary collateral vessel, ANEURYSM, ASCENDING, AORTIC (DILATION) (441.9), Seizure disorder, Brain absces s (Renamed from Abscess of brain), Cyanosis (Renamed from Blue color skin) , AORTIC ARCH, ANOMOLY OF (RAA,DAA, RINGS ) SUBCLAV (747.21), Pulmonary valve atresia, acquired (424.3) Letter Only 14-Oct-2012 16:32 To Encounter Diagnosis:Tetralogy of Fallot 15-Oct-2012 1 4:32 (Renamed from Fallot tetralogy) Pediatric Cardiology [facility] Procedure Only 10-Sep-2012 11:31 To Encounter Diagnosis:Tetralogy of Fallot 10-Sep-2012 1 1:32 (745.2) Pediatric Cardiology [facility] Office Visit 10-Sep-2012 9:55 To Encounter Reason:Office Visit - Note for 12-Sep-2012 12:55 "Office Visit": Interval History: Pediatric Card iology Ms. 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 She remains otherwise unoperated. We had discussed her in conference on January 10, 2010 and reviewed her previous catheterization as well as a more updated MRI and felt that she should be strongly considered to undergo repair. The group felt that not only would she need VSD patch repair as well as an RV-PA valved conduit; but, she would also require a Bentall procedure becaus e of very dilated ascending aorta and aortic root with some aortic insufficiency. The option of waiting until she was sicker and then going to transplant was also discussed.I tried to arrange for her a consultation with Dr. Brook peña the surgical office was never able to contact her. So she has been without follow-up the [facility] e that time - admittedly of her own choosing.Very recently she presented to the [facility] Emergency Room with chest pain described as both sharp and pressure-like and Troponin levels there initially were 0 as was her D-dimer. Dr. Rivera from my practice was contacted by the emergency room physician. A repeat Troponin level later in the evening joseph to 1.15 and request for transfer was made. Dr. Rivera consulted with Dr. Cummins at [facility] and there was agreement that she did not require urgent transfer because there was so little evidence that she was really having ischemic pain. Admission for observation to [facility] was recommended. The patient was admitted overnight but then the next day was transferred to [facility] under the care of Dr. Fortune. Dr. Fortune was contacted by Dr Cierra Rivera and her Troponin had gone up to 2.5. He planned catheterization to specifically look at the coronary arteries. This was accomplished on September 01, 2012 and the angiograms showed that he r coronary arteries were clean in fact. She was discharged and comes in today for further follow-up. She was hospitalized as mentioned at [facility] and at [facility] right afterward, but has power d no other hospitalizations since we last saw her. She was seen in the emergency room at [facility] but has had no other emergency room visits. She has had no interim surgeries. She has had no significant illnesses. Encounter Diagnosis:Tetralogy of Fallot (745.2), Pulmonary valve atresia, acquired (424.3), AORTIC ARCH, ANOMOLY OF (RAA,DAA, RINGS) SUBCLAV (747.21), Cyanosis (Renamed from Blue color skin) , Brain abscess (Renamed from Abscess of brain), Seizure disorder, ANEURYSM, ASCENDING, AORTIC (DILATION) (441.9), Aortopulmonary collateral vessel Payers Medicare Ngs Group Number: NONE [address] [facility] [id number] U S tel: Medicaid [place]([employer]) Group Number: N ONE [address] [facility] [id number] [place] tel: Medicare Ngs Group Number: NONE [address] [facility] [id number] U S tel: Region 1 Claims Group Number: NONE [address] [facility] [id number] U S tel: Katiana Ingram [address] [place] [address] [facility] [address] tel:
--- OUTSIDE RECORDS SUMMARY | 2021-07-26 13:37 | CCD ---
"Continuity of Care Document (CCD) Created on: 07/19/2021 Katiana Ingram I External Reference #: [id number] : [id number] Sex: Female Author Author Katiana HICKS P.A.-C. 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 AUTM [phone] Problems Description No Information Available Social History [...] Provide r Date Vitamin D (Ergocalciferol) 1.25mg (26147 Ut) Capsules Take 1 Capsule By Mouth [...] Available Vital Signs Date Vital Result Comment 07/14/2021 6:38am BP Systolic 110 mmHg BP Diastolic 70 mmHg Heart Rate 64 /min Respiratory Rate 16 /min 01/13/2021 6:28am BP Systolic 90 mmHg BP Diastolic 60 mmHg Heart Rate 76 /min Respiratory Rate 16 /min Results Test Acquired Date Facility Test Result H/L Range Note Laboratory test finding 07/06/2021 [facility] [place] Vitamin D, 25-Hydroxy 52.5 ng/mL 30.0-100.0 1, 2 Topiramate (Topamax), Serum 17.0 ug/mL 2.0-25.0 3 Levetiracetam (Keppra), S 32.7 ug/mL 10.0-40.0 4 PDF [id number] SEE IMAGE 1 A courtesy copy of this repo rt has been sent to [phone] 2 Vitamin D deficiency has bee n defined by the [place] of [employer] and an Endocrine Society practice guideline as a level of serum 25-OH vitamin D less than 20 ng/mL (1,2). The Endocrine Society went on to further define vitamin D insufficiency as a level between 21 and 29 ng/mL (2). 1. IOM ([place] of [employer]). 2010. Di etary reference intakes [...] Drug Administration. 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 07/14/2021 E83.32 Hereditary vitamin D-dependent r ickets (type 1) (type 2) Marlon Tang.A.-C. 07/14/2021 F41.1 Generalized anxiety disorder Hiro Tidwell.-CCierra 07/14/2021 F51.02 Adjustment insomnia Marlon Sky.Shaneka-CCierra 06/07/2021 G43.709 Chronic migraine wit hout aura, not intractable, without status migrainosus Hai Tang-CCierra 06/07/2021 G40.89 Other seizures Virginia Hicks P.A.-C. 06/07/2021 M54.2 Cervicalgia Marlon Tang.A.-CCierra 06/07/2021 E83.32 Hereditary vitamin D-dependent r ickets (type 1) (type 2) Marlon Tang.A.-C. 06/07/2021 F41.1 Generalized anxiety disorder Marlon Tidwell.A.-CCierra 06/07/2021 F51.02 Adjustment insomnia Donna SkyCCierra Plan of Treatment Future Appointment(s):* 01/04/2022 8:45 am - Virginia Hicks P.A.-C. at Main office - [place] 07/14/2021 - Virginia Hicks P.A.-C.* G43.709 Chronic migraine without aura, not intractable, without status migrainosus* Comments:* Continue current medications. * G40.89 Other seizures* Comments:* Controlled. Topamax level was 17 and Keppra level was 32. * M54.2 Cervicalgia* Comments:* Improved. 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 * F41.1 Generalized anxiety disorder* Comments:* She continues Lexapro and hydroxyzine. * F51.02 Adjustment insomnia* Comments:* Continue hydroxyzine as needed. * Follow up:* 6 months. Functional Status Description No Information Available Mental Status Description No Information Available Referrals Description No Information Available"
--- OUTSIDE RECORDS SUMMARY | 2021-07-26 13:37 | CCD | Continuity of Care Document ---
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 Name Role Phone Bar WEBBER, Rommel Unavailable Raquel Fischer MD Unavailable Tato Francis MD Unavailable Chuck Conklin MD Unavailable Marian Brian LPN Unavailable Unavailable Jasmyne Reeves Unavailable Unavailable Kg MANNING, Zaira Unavailable Unavailable Lauren Francis Unavailable Unavailable Willard Amaya MD Unavailable Problems ANEURYSM, ASCENDING, AORTIC (DILATION) MD Aaliyah (441.9) Arvind García AORTIC ARCH, ANOMOLY OF (RAA,DAA, RINGS) MD Willard Amaya SUBCLAV (747.21) 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) MD Aaliyah (459.89) Arvind García Brain abscess (Renamed from Abscess of MD Aaliyah brain) (G06.0) (324.0) Arvind García Cyanosis (Renamed from Blue color skin) MD Aaliyah (R23.0) (782.5) Arvnid García Fatigue MD Arvind Fischer Palpitations MD Arvind Fischer Pulmonary valve atresia, acquired MD Willard Amaya (424.3) Seizure disorder (G40.909) (345.90) MD Arvind Fischer Tetralogy of Fallot (Renamed from Fallot MD Willard Amaya tetralogy) (Q21.3) (745.2) Allergies and Adverse Reactions Sulfa Drugs (Allergy) [...] two times daily (100 MG) Vitamin D 31512 U Oral Tablet; weekly (17525 U) Escitalopram Oxalate 20 MG Oral Tablet; Status: Greenback ctive one daily (20 MG) KEPPRA, 750MG (Oral Tablet); 2 daily Status: Inact savanah (750 MG) Procedures 2D CONGENITAL COMPLETE (25377) Status: Completed Sep-2012 DOPPLER ECHO EXAM, HEART, COMPLETE Status: Complete d 10-Sep-2012 (37110) DOPPLER COLOR DOM MAPPING (26485) Status: Completed 10-Sep-2012 Veronica-Taussig shunt in pediatric Status: Complete d patient (46068) ECG Routine, 12 Lead (24356) Status: Completed 09-Feb-2021 KERRI Brian - [MEASUREMENTS ANALYSIS] Date of Test: 02/09/2021 10:09:36; Heart Rate: 63; MD Interval: 170; QRS: 114; QT Interval: 442; Corrected QT Interval (QTc): 447; P Wave [place]: 70; QRS Wave [place]: 125; T Wave [place]: 28; Blood Pressure: 105/60 [ECG DIAGNOSTIC STATEMENTS] Date of Test: 02/09/2021 10:09:36; Summary: See Note 2D CONGENITAL COMPLETE (05515) Status: Completed 13-Dec-2020 Jasmyne Reeves - Procedure Note: See Note, See Note ECG Routine, 12 Lead (36724) Status: Completed 13-Dec-2020 KERRI Saul - [MEASUREMENTS ANALYSIS] Date of Test: 12/13/2020 11:14:50; Heart Rate: 66; MD Interval: 164; QRS: 114; QT Interval: 432; Corrected QT Interval (QTc): 442; P Wave [place]: 67; QRS Wave [place]: 132; T Wave [place]: 27; Blood Pressure: 113/68 [ECG DIAGNOSTIC STATEMENTS] Date of Test: 12/13/2020 11:14:50; Summary: See Note US echocardiogram for determining Status: Completed pericardial effusion (43727) 31-May-2020 MD Arvind Fischer J - Procedure Note: See Note; [facility] ASSOCIATESEstephania ECHOCARDIOGRAPHY REPORT Pat.Name: Katiana Ingram I Pat.ID: [id number] St.Date: 05/31/2020 Refer.MD: Arvind Fischer Exam Time: 2:01:00 PM Study Type:Pediatric Echo Height: 62.99in Weight: 123.87lb BSA: 1.58 m2 Age: 1 1975,44Y Sex: FEMALE Sonogrphr: H m Order ID: [id number] Race: C SUMMARY: 2D STUDY: There is [...] not be included. ECG Routine, 12 Lead (50914) Status: Completed 31-May-2020 KERRI Saul - [MEASUREMENTS ANALYSIS] Date of Test: 05/31/2020 13:42:08; Heart Rate: 68; MD Interval: 144; QRS: 114; QT Interval: 432; Corrected QT Interval (QTc): 446; P Wave [place]: 50; QRS Wave [place]: 104; T Wave [place]: -1; Blood Pressure: 109/68 [ECG DIAGNOSTIC STATEMENTS] Date of Test: 05/31/2020 13:42:08; Summary: See Note 2D CONGENITAL COMPLETE (74291) Status: Completed 19-Jun-2019 Jasmyne Reeves - Procedure Note: See Note; [facility], Estephania ECHOCARDIOGRAPHY REPORT Pat.Name: Katiana Ingram I Pat.ID: [id number] .Date: 06/19/2019 Refer.MD: Arvind Fischer Exam Time: 12:34:00 PM Stud y Type:Pediatric Echo Height: 62.99in Weight: 116.61lb BSA: 1.54 m2 Age: 1 1975,43Y Sex: FEMALE Sonogrphr: Tereza Reeves Order ID: [id number] Race: C SUMMARY: 2D STUDY: There is [...] Gradient PG 76.42 mmHg 2D Parasternal Long [place] Dim 2.15 cm Ao An 3.3 [...] not be included. ECG Routine, 12 Lead (68799) Status: Completed 19-Jun-2019 KERRI Brian - [MEASUREMENTS ANALYSIS] Date of Test: 06/19/2019 12:30:14; Heart Rate: 68; MD Interval: 166; QRS: 114; QT Interval: 444; Corrected QT Interval (QTc): 458; P Wave [place]: 71; QRS Wave [place]: 106; T Wave [place]: 27; Blood Pressure: 108/63 [ECG DIAGNOSTIC STATEMENTS] Date of Test: 06/19/2019 12:30:14; Summary: See Note ECG Routine, 12 Lead (41885) Status: Completed 10-Sep-2012 - [MEASUREMENTS ANALYSIS] Date of Test: 09/10/2012 10:11:22; Heart Rate: 72; MD Interval: 146; QRS: 120; QT Interval: 420; Corrected QT Interval (QTc): 441; P Wave [place]: 42; QRS Wave [place]: 101; T Wave [place]: 26; Blood Pressure: 118/58 [ECG DIAGNOSTIC STATEMENTS] [...] Never smoked tobacco Female Plan of Treatment PA-shari or non shari (88132) Start: 14-Mar-2021 Intent AA/DA-shari or non shari (14578) Start: 14-Mar-2021 Intent RV/RA-shari or non shari (85934) Start: 14-Mar-2021 Intent LV or LA-congenital (18459) Start: 14-Mar-2021 Intent R & Retro LH congenital (18219) Start: 14-Mar-2021 Intent Pulse Oximetry (07394) Start: 09-Feb-2021 Intent Event Recorder Interp. and Report Start: 13-Dec-2020 Inte nt (02732) Event Record Scan Coordinator (90960) Start: 13-Dec-2020 Intent DOPPLER COLOR DOM MAPPING (26923) Start: 13-Dec-2020 Inte nt DOPPLER ECHO EXAM, HEART, COMPLETE Start: 13-Dec-2020 Int ent (43365) Pulse Oximetry (99360) Start: 13-Dec-2020 Intent DOPPLER COLOR DOM MAPPING (90958) Start: 31-May-2020 Inte nt DOPPLER ECHO EXAM, HEART, COMPLETE Start: 31-May-2020 Int ent (97787) 2D CONGENITAL COMPLETE (25676) Start: 31-May-2020 Intent Pulse Oximetry (31246) Start: 31-May-2020 Intent Holter & Interpretation (25348) Start: 19-Jun-2019 Intent DOPPLER COLOR DOM MAPPING (13235) Start: 19-Jun-2019 Inte nt DOPPLER ECHO EXAM, HEART, COMPLETE Start: 19-Jun-2019 Int ent (08462) Medical; ADULT PATIENT 30 - Start: 25-May-2021 Appointmen t Request [facility] 8:00 MD Arvind Fischer Results No Known Results No Result Information Available Vital Signs 09-Feb-2021 10:01 Pulse 63 /min Comments: Pattern: [...] BMI 20.90 kg/m2 BSA 1.55 m2 Encounters Procedure Only 14-Mar-2021 8:00 To Encounter Diagnosis:Tetralogy of Fallot 28-Mar-2021 11:28 (Renamed from Fallot tetralogy), Pediatric Cardiolog y Pulmonary valve atresia, acquired , [facility] [employer] AORTIC ARCH, ANOMOLY OF (RAA,DAA, RINGS ) SUBCLAV Office Visit 09-Feb-2021 10:00 To Encounter Reason:Office Visit - Note for 09-Feb-2021 10:55 "Office Visit": Ms. 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 She had started working a [email or web address]. This was the first time she has [...] To Encounter Diagnosis:Palpitations 07-Mar-2021 15:37 Pediatric Cardiology [facility] Office Visit 13-Dec-2020 11:00 To Encounter Reason:Office Visit - Note for 13-Dec-2020 12:19 "Office Visit": Ms. Ingram returns today Pediatric C ardiology for follow-up of tetralogy of Fallot [facility] with acquired pulmonary valve atresia and large [...] the pandemic. She had started working a [email or web address]. This was the first time she has [...] 1:52 (Renamed from Fallot tetralogy) [facility] Procedure Only 31-May-2020 13:58 Encounter Diagnosis:Tetralogy of Fallot To 31-May-20 20 14:47 (Renamed from Fallot tetralogy) [facility] Office Visit 31-May-2020 13:29 Encounter Reason:Office Visit - Note for To 020 14:44 "Office Visit": Ms. Ingram was last seen Pediatric Ca rdiology on 09/10/[address] Conklin. She had since [employer] [facility] been lost to follow up. She returns [...] she would also require a Bentall procedure aixaaus e of very dilated ascending aorta and [...] done well. She has started working at [employer]. This is the first time joaquin carrillo has worked in ~20 years. She is enjoyin [employer] and is not having issues. She still [...] 13:55 Encounter Diagnosis:Tetralogy of Fallot To 25-Jun-20 19 15:26 (Renamed from Fallot tetralogy) [facility] Procedure Only 19-Jun-2019 12:28 Encounter Diagnosis:Aortopulmonary To 19-Jun-2019 12 :30 collateral vessel [facility] Office Visit 19-Jun-2019 12:20 Encounter Reason:Office Visit - Note for To 13-Jul-20 15:40 "Office Visit": Ms. Ingram was last seen Pediatric Ca rdiology on 09/10/[address] Conklin. She has since [facility] been lost to follow up. She returns [...] to have surgery."She is currently living [facility] with her 17 year old son. She [...] 4:32 (Renamed from Fallot tetralogy) [facility] [employer] Procedure Only 10-Sep-2012 11:31 To Encounter Diagnosis:Tetralogy of Fallot 10-Sep-2012 1 1:32 (745.2) Pediatric Cardiology [facility] Office Visit 10-Sep-2012 9:55 To Encounter Reason:Office Visit - Note for 12-Sep-2012 12:55 "Office Visit": Interval History: Pediatric Card iology Ms. 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 The option of waiting until she was sicker and then going to transplant was also discussed.I tried to arrange for her a consultation with Dr. Broko peña the surgical office was never able to contact her. So she has been without follow-up [facility] e that time - admittedly of her own choosing.Very recently she presented to the [facility] Emergency Room with chest pain described as both sharp and pressure-like and Troponin levels there initially were 0 as was her D-dimer. Dr. Rivera from my practice was contacted by the emergency room physician. A repeat Troponin level later in the evening joseph to 1.15 and request for transfer was made. Dr. Rivera consulted with Dr. Cummins at [facility] and there was agreement that she did not require urgent transfer because there was so little evidence that she was really having ischemic pain. Admission for observation to [facility] was recommended. The patient was admitted overnight but then the next day was transferred to [facility] under the care of Dr. Fortune. [...] follow-up. She was hospitalized as mentioned at [facility] and at [facility] right afterward, but has power d no other hospitalizations since we last saw her. She was seen in the emergency room at [facility] but has had no other emergency room [...] Ngs Group Number: NONE [address] [facility] [id number] U S tel: Medicaid [place]([employer]) Group Number: N ONE [address] [facility] [id number] tel: Medicare Ngs Group Number: NONE [address] [place] [id number] U S tel: [place] [address] Claims Group Number: NONE [address] [facility] [id number] U S tel: Katiana Ingram [address] [place] [address] [address] [facility] [address] tel:
--- OUTSIDE RECORDS SUMMARY | 2021-07-26 13:37 | CCD | Continuity of Care Document ---
Author Author Katiana HICKS P.A.-C. Organization Unknown Address [address] [place] [id number] Phone [phone] Care Team Providers Care Lodging Facilities Manager Name Role Phone Rommel Dinero M.D. AUTM [phone] Problems Description No Information Available Social History [...] Provide r Date Vitamin D (Ergocalciferol) 1.25mg (33721 Ut) Capsules Take 1 Capsule By Mouth [...] One Tablet By Mouth Every Day 30tabs Yairel Diaz M.D. 11/08 Immunizations Description No Information [...] (Keppra), S 32.7 ug/mL 10.0-40.0 4 PDF [id number] SEE IMAGE 1 A courtesy copy of this repo rt has been sent to [phone] 2 Vitamin D deficiency has bee n defined by the [place] [employer] and an Endocrine Society practice guideline as a level of serum 25-OH vitamin D less than 20 ng/mL (1,2). The Endocrine Society went on to further define vitamin D insufficiency as a level between 21 and 29 ng/mL (2). 1. IOM ([place] [employer]). 2010. Di etary reference intakes [...] Administration. 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 07/14/2021 G40.89 Other seizures Virginia Hicks P.A.-C. 07/14/2021 M54.2 Cervicalgia Virginia Hicks P.A.-C. 07/14/2021 E83.32 Hereditary vitamin D-dependent r ickets (type 1) (type 2) Marlon Tang.A.-C. 07/14/2021 F41.1 Generalized anxiety disorder Dorothy Hicks P.A.-C. 07/14/2021 F51.02 Adjustment insomnia Virginia sanders P.A.-C. 06/07/2021 G43.709 Chronic migraine wit hout aura, not intractable, without status migrainosus Virginia Hicks P.A.-C. 06/07/2021 G40.89 Other seizures Virginia Hicks P.A.-C. 06/07/2021 M54.2 Cervicalgia Virginia Hicks P.A.-C. 06/07/2021 E83.32 Hereditary vitamin D-dependent r ickets (type 1) (type 2) Virginia Hicks P.A.-C. 06/07/2021 F41.1 Generalized anxiety disorder Dorothy Hicks P.A.-C. 06/07/2021 F51.02 Adjustment insomnia Virginia sanders P.A.-C. 01/13/2021 G40.89 Other seizures Virginia Hicks P.A.-C. 01/13/2021 G43.709 Chronic migraine wit hout aura, not intractable, without status migrainosus Virginia Hicks P.A.-C. 01/13/2021 M54.2 Cervicalgia Virginia Hicks P.A.-C. 01/13/2021 F51.02 Adjustment insomnia Virginia sanders P.A.-C. 01/13/2021 F41.1 Generalized anxiety disorder Dorothy Hicks P.A.-C. 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 Plan of Treatment Future Appointment(s):* 01/04/2022 8:45 am - Virginia Hicks P.A.-C. 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
--- OUTSIDE RECORDS SUMMARY | 2021-07-26 13:37 | CCD | Continuity of Care Document ---
Author Author Shaper Operator, Katiana Rader Organization Unknown Address Unknown Phone Unavailable Care Team Providers Care Hammerer Helper Name Role Phone Bar WEBBER, Rommel Unavailable Raquel Fischer MD Unavailable [phone] Tato Francis MD Unavailable Chuck Conklin MD Unavailable Marian Brian LPN Unavailable Unavailable Jasmyne Reeves Unavailable Unavailable Kg MANNING, Zaira Unavailable Unavailable Lauren Francis Unavailable Unavailable Willadr Amaya MD Unavailable Problems ANEURYSM, ASCENDING, AORTIC (DILATION) MD Aaliyah (441.9) Arvind García AORTIC ARCH, ANOMOLY OF (RAA,DAA, RINGS) MD Aaliyah SUBCLAV (747.21) Arvind García 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) MD Aaliyah (459.89) Arvind García Brain abscess (Renamed from Abscess of MD Aaliyah brain) (G06.0) (324.0) Arvind García Cyanosis (Renamed from Blue color skin) MD Aaliyah (R23.0) (782.5) Arvind García Fatigue MD Arvind Fischer Palpitations MD Arvind Fischer Pulmonary valve atresia, 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) Arvind García Seizure disorder (G40.909) (345.90) MD Arvind Fischer Tetralogy of Fallot (Renamed from Fallot MD Aaliyah tetralogy) (Q21.3) (745.2) Arvind García Allergies and Adverse Reactions Sulfa Drugs (Allergy) [...] two times daily (100 MG) Vitamin D 98621 U Oral Tablet; weekly (29534 U) Escitalopram Oxalate 20 MG Oral Tablet; Status: [place] ctive one daily (20 MG) KEPPRA, 750MG (Oral Tablet); 2 daily Status: Inact savanah (750 MG) Procedures 2D CONGENITAL COMPLETE (79694) Status: Completed Sep-2012 DOPPLER ECHO EXAM, HEART, COMPLETE Status: Complete d 10-Sep-2012 (64464) DOPPLER COLOR DOM MAPPING (48178) Status: Completed 10-Sep-2012 Veronica-Taussig shunt in pediatric Status: Complete d patient (65546) ECG Routine, 12 Lead (69714) Status: Completed 25-May-2021 - [MEASUREMENTS ANALYSIS] Date of Test: 05/25/2021 08:32:57; Heart Rate: 74; AL Interval: 140; QRS: 114; QT Interval: 442; Corrected QT Interval (QTc): 466; P Wave [place]: 57; QRS Wave [place]: 95; T Wav e [place]: -21; Blood Pressure: 106/59 [ECG DIAGNOSTIC STATEMENTS] Date of Test: 05/25/2021 08:32:57; Summary: See Note ECG Routine, 12 Lead (20191) Status: Completed 09-Feb-2021 KERRI Brian - [MEASUREMENTS ANALYSIS] Date of Test: 02/09/2021 10:09:36; Heart Rate: 63; AL Interval: 170; QRS: 114; QT Interval: 442; Corrected QT Interval (QTc): 447; P Wave [place]: 70; QRS Wave [place]: 125; T Wave [place]: 28; Blood Pressure: 105/60 [ECG DIAGNOSTIC STATEMENTS] Date of Test: 02/09/2021 10:09:36; Summary: See Note 2D CONGENITAL COMPLETE (25071) Status: Completed 13-Dec-2020 Reeves Jasmyne - Procedure Note: See Note, See Note ECG Routine, 12 Lead (00623) Status: Completed 13-Dec-2020 KERRI Saul - [MEASUREMENTS ANALYSIS] Date of Test: 12/13/2020 11:14:50; Heart Rate: 66; AL Interval: 164; QRS: 114; QT Interval: 432; Corrected QT Interval (QTc): 442; P Wave [place]: 67; QRS Wave [place]: 132; T Wave [place]: 27; Blood Pressure: 113/68 [ECG DIAGNOSTIC STATEMENTS] Date of Test: 12/13/2020 11:14:50; Summary: See Note US echocardiogram for determining Status: Completed pericardial effusion (04973) 31-May-2020 MD Arvind Fischer J - Procedure Note: See Note; [facility] ECHOCARDIOGRAPHY REPORT Pat.Name: Katiana Ingram I Pat.ID: [id number] .Date: 05/31/2020 Refer.MD: Arvind Fischer Exam Time: 2:01:00 PM Study Type:Pediatric Echo Height: 62.99in Weight: 123.87lb BSA: 1.58 m2 Age: 1 1975,44Y Sex: FEMALE Sonogrphr: H m Order ID: [id number] Race: C SUMMARY: 2D STUDY: There is [...] not be included. ECG Routine, 12 Lead (48635) Status: Completed 31-May-2020 KERRI Saul - [MEASUREMENTS ANALYSIS] Date of Test: 05/31/2020 13:42:08; Heart Rate: 68; AL Interval: 144; QRS: 114; QT Interval: 432; Corrected QT Interval (QTc): 446; P Wave [place]: 50; QRS Wave [place]: 104; T Wave [place]: -1; Blood Pressure: 109/68 [ECG DIAGNOSTIC STATEMENTS] Date of Test: 05/31/2020 13:42:08; Summary: See Note 2D CONGENITAL COMPLETE (51472) Status: Completed 19-Jun-2019 Jasmyne Reeves - Procedure Note: See Note; [facility] ECHOCARDIOGRAPHY REPORT Pat.Name: Katiana Ingram I Pat.ID: [id number] St.Date: 06/19/2019 Refer.MD: Arvind Fischer Exam Time: 12:34:00 PM Stud y Type:Pediatric Echo Height: 62.99in Weight: 116.61lb BSA: 1.54 m2 Age: 1 1975,43Y Sex: FEMALE Sonogrphr: Tereza Reeves Order ID: [id number] Race: C SUMMARY: 2D STUDY: There is [...] Gradient PG 76.42 mmHg 2D Parasternal Long [place] LA Dim 2.15 cm Ao An 3.3 [...] not be included. ECG Routine, 12 Lead (00788) Status: Completed 19-Jun-2019 KERRI Brian - [MEASUREMENTS ANALYSIS] Date of Test: 06/19/2019 12:30:14; Heart Rate: 68; AL Interval: 166; QRS: 114; QT Interval: 444; Corrected QT Interval (QTc): 458; P Wave [place]: 71; QRS Wave [place]: 106; T Wave [place]: 27; Blood Pressure: 108/63 [ECG DIAGNOSTIC STATEMENTS] Date of Test: 06/19/2019 12:30:14; Summary: See Note ECG Routine, 12 Lead (51605) Status: Completed 10-Sep-2012 - [MEASUREMENTS ANALYSIS] Date of Test: 09/10/2012 10:11:22; Heart Rate: 72; AL Interval: 146; QRS: 120; QT Interval: 420; Corrected QT Interval (QTc): 441; P Wave [place]: 42; QRS Wave [place]: 101; T Wave [place]: 26; Blood Pressure: 118/58 [ECG DIAGNOSTIC STATEMENTS] [...] tobacco Female Plan of Treatment Pulse Oximetry (01740) Start: 25-May-2021 Intent PA-shari or non shari (25249) Start: 14-Mar-2021 Intent AA/DA-shari or non shari (00237) Start: 14-Mar-2021 Intent RV/RA-shari or non shari (47305) Start: 14-Mar-2021 Intent LV or LA-congenital (70854) Start: 14-Mar-2021 Intent R & Retro LH congenital (57868) Start: 14-Mar-2021 Intent Pulse Oximetry (61516) Start: 09-Feb-2021 Intent Event Recorder Interp. and Report Start: 13-Dec-2020 Inte nt (65782) Event Record Senior Java Developer (91676) Start: 13-Dec-2020 Intent DOPPLER COLOR DOM MAPPING (42442) Start: 13-Dec-2020 Inte nt DOPPLER ECHO EXAM, HEART, COMPLETE Start: 13-Dec-2020 Int ent (86878) Pulse Oximetry (57009) Start: 13-Dec-2020 Intent DOPPLER COLOR DOM MAPPING (03615) Start: 31-May-2020 Inte nt DOPPLER ECHO EXAM, HEART, COMPLETE Start: 31-May-2020 Int ent (85407) 2D CONGENITAL COMPLETE (90863) Start: 31-May-2020 Intent Pulse Oximetry (32581) Start: 31-May-2020 Intent Holter & Interpretation (29456) Start: 19-Jun-2019 Intent DOPPLER COLOR DOM MAPPING (25729) Start: 19-Jun-2019 Inte nt DOPPLER ECHO EXAM, HEART, COMPLETE Start: 19-Jun-2019 Int ent (72350) Medical; ADULT PATIENT 30 - 6m Start: 23-Nov-2021 Appoint ment Request [facility] 9:30 MD Arvind Fischer Results No [...] BMI 20.90 kg/m2 BSA 1.55 m2 Encounters Office Visit 25-May-2021 8:00 To Encounter Reason:Office Visit - Note for 07-Jun-2021 12:33 "Office Visit": Ms. Ingram Pediatric Cardiology returns today for follow-up of [facility] tetralogy of Fallot with acquired pulmonary valve [...] she would also require a Bentall procedure becjosefa e of very dilated ascending aorta and [...] arteries were clean by report.Since re-establishing care, she has been relatively free of symptoms. Our hope was to perform cMRI to reassess her anatomy/physiology. However, we decided to hold off during the pandemic. She had started working a [employer]. This was the first time she has worked in ~20 years. She was enjoying it and was not having issues. She still follows with a neurologist fo r a history of brain abscess and seizures.She has done well since her last visit. An event monitor was placed and demonstrated predominantly PVCS. He r palpitations are unchanged. She has not passed out.Today she offers no complaints. She is able to work. Lab evaluation has been generally unrevealing. There has been no significant change in her exercise capacity. There have been no fevers, weight loss, night sweats. She has cyanosis at baseline.A cardiac catheterization was performed 03/14/2021:Saturation RASCV 62%RA 59&RV 64%LV 90%Ao 83%Pressure RA 05/11 mean 3RV 126/12LV 126/12Ao 126/58BT shunt and Pas: NA Encounter Diagnosis:Tetralogy of Fallot (Renamed from Fallot tetralogy), Pulmonary valve atresia, acquired , AORTIC ARCH, ANOMOLY OF (RAA,DAA, RINGS ) SUBCLAV , Aortopulmonary collateral vessel, ANEURYSM, ASCENDING, AORTIC (DILATION) Procedure Only 14-Mar-2021 8:00 To Encounter Diagnosis:Tetralogy [...] she would also require a Bentall procedure keith e of very dilated ascending aorta and [...] the pandemic. She had started working a [employer]. This was the first time she has [...] To Encounter Diagnosis:Palpitations 07-Mar-2021 15:37 [facility] Office Visit 13-Dec-2020 11:00 To Encounter Reason:Office Visit - Note for 13-Dec-2020 12:19 "Office Visit": Ms. Ingram returns today Pediatric C ardiology for follow-up of tetralogy of Fallot [facility] with acquired pulmonary valve atresia [...] the pandemic. She had started working a [employer]. This was the first time she has [...] 1:52 (Renamed from Fallot tetralogy) Pediatric Cardiology [facility] Procedure Only 31-May-2020 13:58 Encounter Diagnosis:Tetralogy of Fallot To 31-May-20 20 14:47 (Renamed from Fallot tetralogy) Pediatric Cardiology [facility] Office Visit 31-May-2020 13:29 Encounter Reason:Office Visit - Note for To 020 14:44 "Office Visit": Ms. Ingram was last seen Pediatric Ca rdiology on 09/10/[address] Conklin. She had since [facility] been lost to follow up. She returns [...] done well. She has started working at [employer]. This is the first time joaquin carrillo has worked in ~20 years. She is enjoyin g [employer] and is not having issues. She still [...] 19-Jun-2019 12 :30 collateral vessel Pediatric Cardiology [facility] Office Visit 19-Jun-2019 12:20 Encounter Reason:Office Visit - Note for To 13-Jul-20 19 15:40 "Office Visit": Ms. Ingram was last seen Pediatric Ca rdiology on 09/10/[address] Conklin. She has since [employer] [facility] been lost to follow up. She [...] to have surgery."[facility] 17 year [facility] son. She [...] tetralogy) [facility] Procedure Only 10-Sep-2012 11:31 To Encounter Diagnosis:Tetralogy of Fallot 10-Sep-2012 1 1:32 (745.2) [facility] Office Visit 10-Sep-2012 9:55 To Encounter Reason:Office Visit - Note for 12-Sep-2012 12:55 "Office Visit": Interval History: Pediatric Card iology Ms. Ingram was last seen on January 23, [employer] 2009 and returns today in follow-up of [...] her. So she has been without follow-up [facility] e that time - admittedly of her own choosing.Very recently she presented to the [facility] Emergency Room with chest pain described as both sharp and pressure-like and Troponin levels there initially were 0 as was her D-dimer. Dr. Rivera from my practice was contacted by the emergency room physician. A repeat Troponin level later in the evening joseph to 1.15 and request for transfer was made. Dr. Rivera consulted with Dr. Cummins at [facility] and there was agreement that she did not require urgent transfer because there was so little evidence that she was really having ischemic pain. Admission for observation to [facility] was recommended. The patient was admitted overnight but then the next day was transferred to [facility] under the care of Dr. Fortune. [...] follow-up. She was hospitalized as mentioned at [facility] and at [facility] right afterward, but has power d no other hospitalizations since we last saw her. She was seen in the emergency room at [facility] but has had no other [...] Ngs Group Number: NONE [address] [place] [id number] U S tel: Medicaid [place]([employer]) Group Number: N ONE [address] [facility] [id number] tel: Medicare Ngs Group Number: NONE [address] [place] [id number] U S tel: [facility] 1 Claims Group Number: NONE [id number] [facility] [id number] U S tel: Katiana Ingram [address] [place] [address] [address] [facility] [address] tel:
--- OUTSIDE RECORDS SUMMARY | 2021-07-26 13:38 | CCD ---
Author Author [facility] Organization [facility] Address Unknown Phone Unavailable Care Team Providers Care Street Light Servicer Helper Name Role Phone EDWIGE, Brian FLORES MD Unavailable Unavailable EMERTON, Brian FLORES MD Unavailable Unavailable EMERTON, Brian FLORES MD Unavailable Unavailable EMERTON, Brian FLORES MD Unavailable Unavailable EMERTON, Brian FLORES MD Unavailable Unavailable EMERTON, Brian FLORES MD Unavailable Unavailable EMERTON, Brian FLORES MD Unavailable Unavailable EMERTON, Brian FLORES MD Unavailable Unavailable EMERTON, Brian FLORES MD Unavailable Unavailable EMERTON, Brian FLORES MD Unavailable Unavailable EMERTON, Brian FLORES MD Unavailable Unavailable EMERTON, Brian FLORES MD Unavailable Unavailable EMERTON, Brian FLORES MD Unavailable Unavailable EMERTON, Brian FLORES MD Unavailable Unavailable EMERTON, Brian FLORES MD Unavailable Unavailable EMERTON, Brian FLORES MD Unavailable Unavailable EMERTON, Brian FLORES MD Unavailable Unavailable EMERTON, Brian FLORES MD Unavailable Unavailable EMERTON, Brian FLORES MD Unavailable Unavailable EMERTON, Brian FLORES MD Unavailable Unavailable EMERTON, Brian FLORES MD Unavailable Unavailable EMERTON, Brian FLORES MD Unavailable Unavailable EMERTON, Brian FLORES MD Unavailable Unavailable EMERTON, Brian FLORES MD Unavailable Unavailable EMERTON, Brian FLORES MD Unavailable Unavailable EMERTON, Brian FLORES MD Unavailable Unavailable EMERTON, Brian FLORES MD Unavailable Unavailable EMERTON, A MARK MD Unavailable Unavailable EMERTON, A MARK MD Unavailable Unavailable EMERTON, A MARK MD Unavailable Unavailable EMERTON, A MARK MD Unavailable Unavailable EMERTON, A MARK MD Unavailable Unavailable EMERTON, A MARK MD Unavailable Unavailable EMERTON, A MARK MD Unavailable Unavailable EMERTON, A MARK MD Unavailable Unavailable EMERTON, A MARK MD Unavailable Unavailable EMERTON, A MARK MD Unavailable Unavailable EMERTON, A MARK MD Unavailable Unavailable EMERTON, A MARK MD Unavailable Unavailable EMERTON, A MARK MD Unavailable Unavailable EMERTON, A MARK MD Unavailable Unavailable EMERTON, A MARK MD Unavailable Unavailable EMERTON, A MARK MD Unavailable Unavailable EMERTON, A MARK MD Unavailable Unavailable EMERTON, A MARK MD Unavailable Unavailable EMERTON, A MARK MD Unavailable Unavailable EMERTON, A MARK MD Unavailable Unavailable EMERTON, A MARK MD Unavailable Unavailable EMERTON, A MARK MD Unavailable Unavailable EMERTON, A MARK MD Unavailable Unavailable EMERTON, A MARK MD Unavailable Unavailable EMERTON, A MARK MD Unavailable Unavailable EMERTON, A MARK MD Unavailable Unavailable EMERTON, A MARK MD Unavailable Unavailable EMERTON, A MARK MD Unavailable Unavailable EMERTON, A MARK MD Unavailable Unavailable EMERTON, A MARK MD Unavailable Unavailable EMERTON, A MARK MD Unavailable Unavailable EMERTON, A MARK MD Unavailable Unavailable EMERTON, A MARK MD Unavailable Unavailable EMERTON, A MARK MD Unavailable Unavailable EMERTON, A MARK MD Unavailable Unavailable EMERTON, A MARK MD Unavailable Unavailable EMERTON, A MARK MD Unavailable Unavailable EMERTON, A MARK MD Unavailable Unavailable EMERTON, A MARK MD Unavailable Unavailable EMERTON, A MARK MD Unavailable Unavailable EMERTON, A MARK MD Unavailable Unavailable EMERTON, A MARK MD Unavailable Unavailable EMERTON, A MARK MD Unavailable Unavailable EMERTON, A MARK MD Unavailable Unavailable EMERTON, A MARK MD Unavailable Unavailable EMERTON, A MARK MD Unavailable Unavailable EMERTON, A MARK MD Unavailable Unavailable EMERTON, A MARK MD Unavailable Unavailable EMERTON, A MARK MD Unavailable Unavailable EMERTON, A MARK MD Unavailable Unavailable ERICA WEBBER, Courtney JUAREZ Unavailable Unavailable Trickey, J [place] PA Unavailable Unavailable Trickey, J [place] PA Unavailable Unavailable Trickey, J [place] PA Unavailable Unavailable Trickey, J [place] PA Unavailable Unavailable Trickey, J [place] PA Unavailable Unavailable Trickey, J [place] PA Unavailable Unavailable Trickey, J [place] PA Unavailable Unavailable Trickey, J [place] PA Unavailable Unavailable Trickey, J [place] PA Unavailable Unavailable Trickey, J [place] PA Unavailable Unavailable Trickey, J [place] PA Unavailable Unavailable Trickey, J [place] PA Unavailable Unavailable Trickey, J [place] PA Unavailable Unavailable Trickey, J [place] PA Unavailable Unavailable Trickey, J [place] PA Unavailable Unavailable Trickey, J [place] PA Unavailable Unavailable Trickey, J [place] PA Unavailable Unavailable Trickey, J [place] PA Unavailable Unavailable Trickey, J [place] PA Unavailable Unavailable Trickey, J [place] PA Unavailable Unavailable Trickey, J [place] PA Unavailable Unavailable Trickey, J [place] PA Unavailable Unavailable Trickey, J [place] PA Unavailable Unavailable Trickey, J [place] PA Unavailable Unavailable Trickey, J [place] PA Unavailable Unavailable Trickey, J [place] PA Unavailable Unavailable Trickey, J [place] PA Unavailable Unavailable Trickey, J [place] PA Unavailable Unavailable Trickey, J [place] PA Unavailable Unavailable Trickey, J [place] PA Unavailable Unavailable Trickey, J [place] PA Unavailable Unavailable Trickey, J [place] PA Unavailable Unavailable Trickey, J [place] PA Unavailable Unavailable Trickey, J [place] PA Unavailable Unavailable Trickey, J [place] PA Unavailable Unavailable Trickey, J [place] PA Unavailable Unavailable Trickey, J [place] PA Unavailable Unavailable Trickey, J [place] PA Unavailable Unavailable Trickey, J [place] PA Unavailable Unavailable Trickey, J [place] PA Unavailable Unavailable Trickey, J [place] PA Unavailable Unavailable Trickey, J [place] PA Unavailable Unavailable Trickey, J [place] PA Unavailable Unavailable Trickey, J [place] PA Unavailable Unavailable Trickey, J [place] PA Unavailable Unavailable Trickey, J [place] PA Unavailable Unavailable Trickey, J [place] PA Unavailable Unavailable Trickey, J [place] PA Unavailable Unavailable Trickey, J [place] PA Unavailable Unavailable Faustina STEWART MD Unavailable Unavailable Faustina STEWART MD Unavailable Unavailable Faustina STEWART MD Unavailable Unavailable Faustina STEWART MD Unavailable Unavailable Faustina STEWART MD Unavailable Unavailable Faustina STEWART MD Unavailable Unavailable Faustina STEWART MD Unavailable Unavailable Faustina STEWART MD Unavailable Unavailable Faustina STEWART MD Unavailable Unavailable Faustina STEWART MD Unavailable Unavailable Faustina STEWART MD Unavailable Unavailable Faustina STEWART MD Unavailable Unavailable Faustina STEWART MD Unavailable Unavailable Faustina STEWART MD Unavailable Unavailable Faustina STEWART MD Unavailable Unavailable Faustina STEWART MD Unavailable Unavailable CHERFaustina BAIG MD Unavailable Unavailable CHERFaustina BAIG MD Unavailable Unavailable CHERFaustina BAIG MD Unavailable Unavailable CHERFaustina BAIG MD Unavailable Unavailable CHERFasutina BAIG MD Unavailable Unavailable CHERFaustina BAIG MD Unavailable Unavailable CHERFaustina BAIG MD Unavailable Unavailable CHERFaustina BAIG MD Unavailable Unavailable CHERFaustina BAIG MD Unavailable Unavailable CHERFaustina BAIG MD Unavailable Unavailable CHERFaustina BAIG MD Unavailable Unavailable CHERFaustina BAIG MD Unavailable Unavailable CHERFaustina BAIG MD Unavailable Unavailable CHERFaustina BAIG MD Unavailable Unavailable CHERFaustina BAIG MD Unavailable Unavailable CHERFaustina BAIG MD Unavailable Unavailable CHERFaustina BAIG MD Unavailable Unavailable CHERFaustina BAIG MD Unavailable Unavailable CHERFaustina BAIG MD Unavailable Unavailable CHERFaustina BAIG MD Unavailable Unavailable CHERFaustina BAIG MD Unavailable Unavailable CHERFaustina BAIG MD Unavailable Unavailable Faustina STEWART MD Unavailable Unavailable CHERFaustina BAIG MD Unavailable Unavailable Faustina STEWART MD Unavailable Unavailable Faustina STEWART MD Unavailable Unavailable Faustina STEWART MD Unavailable Unavailable Faustina STEWART MD Unavailable Unavailable Faustina STEWART MD Unavailable Unavailable Faustina STEWART MD Unavailable Unavailable Faustina STEWART MD Unavailable Unavailable Faustina STEWART MD Unavailable Unavailable Faustina STEWART MD Unavailable Unavailable Faustina STEWART MD Unavailable Unavailable Faustina STEWART MD Unavailable Unavailable Faustina STEWART MD Unavailable Unavailable Faustina STEWART MD Unavailable Unavailable Faustina STEWART MD Unavailable Unavailable Faustina STEWART MD Unavailable Unavailable Faustina STEWART MD Unavailable Unavailable Faustina STEWART MD Unavailable Unavailable Faustina STEWART MD Unavailable Unavailable Faustina STEWART MD Unavailable Unavailable Faustina STEWART MD Unavailable Unavailable Faustina STEWART MD Unavailable Unavailable Faustina STEWART MD Unavailable Unavailable Faustina STEWART MD Unavailable Unavailable Faustina STEWART MD Unavailable Unavailable Faustina STEWART MD Unavailable Unavailable Faustina STEWART MD Unavailable Unavailable Faustina STEWART MD Unavailable Unavailable Faustina STEWART MD Unavailable Unavailable Faustina STEWART MD Unavailable Unavailable Faustina STEWART MD Unavailable Unavailable Faustina STEWART MD Unavailable Unavailable Faustina STEWART MD Unavailable Unavailable Faustina STEWART MD Unavailable Unavailable Faustina STEWART MD Unavailable Unavailable Faustina STEWART MD Unavailable Unavailable CHERNY, C MAYDA MD Unavailable Unavailable CHERNY, C MAYDA MD Unavailable Unavailable CHERNY, C MAYDA MD Unavailable Unavailable CHERNY, C MAYDA MD Unavailable Unavailable CHERNY, C MAYDA MD Unavailable Unavailable CHERNY, C MAYDA MD Unavailable Unavailable CHERNY, C MAYDA MD Unavailable Unavailable CHERNY, C MAYDA MD Unavailable Unavailable CHERNY, C MAYDA MD Unavailable Unavailable CHERNY, C MAYDA MD Unavailable Unavailable CHERNY, C MAYDA MD Unavailable Unavailable CHERNY, C MAYDA MD Unavailable Unavailable CHERNY, C MAYDA MD Unavailable Unavailable CHERNY, C MAYDA MD Unavailable Unavailable CHERNY, C MAYDA MD Unavailable Unavailable CHERNY, C MAYDA MD Unavailable Unavailable CHERNY, C MAYDA MD Unavailable Unavailable CHERNY, C MAYDA MD Unavailable Unavailable ANN MALDONADO Unavailable Unavailable Re-disclosure Warning The records that you are about to access may contain information from federally-assisted alcohol or drug abuse programs. If such information is present, then the following federally mandated warning applies: This information has been disclosed to you from records protected by federal confidentiality rules (42 CFR part 2). The federal rules prohibit you from making any further disclosure of this information unless further disclosure is expressly permitted by the written consent of the person to whom it pertains or as otherwise permitted by 42 CFR part 2. A general authorization for the release of medical or other information is NOT sufficient for this purpose. The Federal rules restrict any use of the information to criminally investigate or prosecute any alcohol or drug abuse patient.The records that you are about to access may contain highly sensitive health information, the redisclosure of which is protected by Article 27-F of the [facility] Public Health law. If you continue you may have access to information: Regarding HIV / AIDS; Provided by facilities licensed or operated by the [facility] Office of Mental Health; or Provided by the [facility] Office for People With Developmental Disabilities. If such information is present, then the following [facility] mandated warning applies: This information has been disclosed to you from confidential records which are protected by state law. State law prohibits you from making any further disclosure of this information without the specific written consent of the person to whom it pertains, or as otherwise permitted by law. Any unauthorized further disclosure in violation of state law may result in a fine or halfway sentence or both. A general authorization for the release of medical or other information is NOT sufficient authorization for further disc losure. Family History Family Member Name Family Member Gender Family Member Status Date o f Status Description Data Source(s) Unknown Female Problem [facility] Encounters Encounter Providers Location Date Indications Data Source(s ) Outpatient Attender: [place] OROZCO Main office - [facility] 07/14/2021 08:15:00 AM EDT [facility] ([facility]) Outpatient Attender: MAYDA Olmoser: MARK GIBBONS MD _[id number] 05/29/2021 12:10:55 PM EDT [facility] Outpatient Attender: MAYDA Kimble: MARK GIBBONS MD _[id number] 05/29/2021 11:59:51 AM EDT Hematology On [facility] <td><content ID="_[id number]">Office Visit</content>
<content><content styleCode="xLabel xSecondary">Encounter Reason:</content><content ID="_[id number]" styleCode="xSecondary">Office Visit - Note for "Office Visit": Ms. Topete returns today for follow-up of tetralogy of [...] should be strongly considered to undergo repair at that point. The group felt that not only would she need VSD patch repair as well as an RV- PA valved conduit; but, she would also require a Bentall procedure because of very dilated ascending aorta and aortic root with some aortic insufficiency. The option of waiting until she was sicker and then going to transplant was also discussed.She had been without follow-up since that time - admittedly of her own choosing. She attributes this to complex medical and social issues. She [...] during the pandemic. She had started working at [employer]. This was the first time she has worked in ~20 years. She was enjoying it and was not having issues. She still follows with a neurologist for a history of brain abscess and seizures.She has done well since her last visit. An event monitor was placed and demonstrated predominantly PVCS. Her palpitations are unchanged. She has not passed out.Today she offers no complaints. She is able to work. Lab evaluation has been generally unrevealing. There has been no significant change in her exercise capacity. There have been no fevers, weight loss, night sweats. She has cyanosis at baseline.A cardiac catheterization was performed 03/14/2021:Saturation RASCV 62%RA 59&RV 64%LV 90%Ao 83%Pressure RA 8/5 mean 3RV 126/12LV 126/12Ao 126/58BT shunt and Pas: NA</content></content>
<content><content styleCode="xSecondary xLabel">Encounter Diagnosis:</content><content ID="_[id number]" styleCode="xSecondary">Tetralogy of Fallot (Renamed from Fallot tetralogy)</content><content styleCode="xSecondary">, </content><content [id number]" styleCode="xSecondary">Pulmonary valve atresia, acquired </content><content styleCode="xSecondary">, </content><content [id number]" styleCode="xSecondary">AORTIC ARCH, ANOMOLY OF (RAA,DAA, RINGS) SUBCLAV </content><content styleCode="xSecondary">, </content><content [id number]" styleCode="xSecondary">Aortopulmonary collateral vessel</content><content styleCode="xSecondary">, </content><content [id number]" styleCode="xSecondary">ANEURYSM, ASCENDING, AORTIC (DILATION) </content></content></td><td><content styleCode="xSecondary">25-May-2021 8:00 </content><content styleCode="xLabel xSecondary"> To </content><content styleCode="xSecondary">07-Jun-2021 12:33</content>
<content styleCode="xSecondary">[facility]</content>
</td><td></td>[facility] 05/25/2021 08:19:01 AM EDT - 06/07/2021 12:33:40 PM EDT Office Visit - Note for "Office Visit": Ms. Topete returns today for follow-up of tetralogy of [...] should be strongly considered to undergo repair at that point. The group felt that not only would she need VSD patch repair as well as an RV- PA valved conduit; but, she would also require a Bentall procedure because of very dilated ascending aorta and aortic root with some aortic insufficiency. The option of waiting until she was sicker and then going to transplant was also discussed.She had been without follow-up since that time - admittedly of her own choosing. She attributes this to complex medical and social issues. She [...] during the pandemic. She had started working at [employer]. This was the first time she has worked in ~20 years. She was enjoying it and was not having issues. She still follows with a neurologist for a history of brain abscess and seizures.She has done well since her last visit. An event monitor was placed and demonstrated predominantly PVCS. Her palpitations are unchanged. She has not passed out.Today she offers no complaints. She is able to work. Lab evaluation has been generally unrevealing. There has been no significant change in her exercise capacity. There have been no fevers, weight loss, night sweats. 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 Topete returns today for follow-up of tetralogy of [...] should be strongly considered to undergo repair at that point. The group felt that not only would she need VSD patch repair as well as an RV- PA valved conduit; but, she would also require a Bentall procedure because of very dilated ascending aorta and aortic root with some aortic insufficiency. The option of waiting until she was sicker and then going to transplant was also discussed.She had been without follow-up since that time - admittedly of her own choosing. She attributes this to complex medical and social issues. She [...] during the pandemic. She had started working at [employer]. This was the first time she has worked in ~20 years. She was enjoying it and was not having issues. She still follows with a neurologist for a history of brain abscess and seizures.She has done well since her last visit. An event monitor was placed and demonstrated predominantly PVCS. Her palpitations are unchanged. She has not passed out.Today she offers no complaints. She is able to work. Lab evaluation has been generally unrevealing. There has been no significant change in her exercise capacity. There have been no fevers, weight loss, night sweats. 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 ) Tetralogy of Fallot (745.2) Unspecified Diagnosis Outpatient Attender: MAYDA Kimble: MARK GIBBONS MD _[id number] 05/19/2021 02:27:30 PM EDT Hematology On [facility] Outpatient Attender: MAYDA Kimble: [facility]ONS [id number] 05/19/2021 02:27:29 PM EDT Hematology On [facility] Outpatient Attender: MAYDA Kimble: MARK [facility]IBBONS [id number] 05/17/2021 10:17:03 AM EDT Hematology On [facility] Procedure Only<td><content ID="_[id number]">Procedure Only</content>
<content><content styleCode="xSecondary xLabel">Encounter Diagnosis:</content><content [id number]" styleCode="xSecondary">Tetralogy of Fallot (Renamed from Fallot tetralogy)</content><content styleCode="xSecondary">, </content><content [id number]" styleCode="xSecondary">Pulmonary valve atresia, acquired </content><content styleCode="xSecondary">, </content> <content [id number]" styleCode="xSecondary">AORTIC ARCH, ANOMOLY OF (RAA,DAA, RINGS) SUBCLAV </content></content></td><td><content styleCode="xSecondary">14-Mar-2021 8:00 </content><content styleCode="xLabel xSecondary"> To </content><content styleCode="xSecondary">28-Mar-2021 11:28</content>
<content styleCode="xSecondary">Pediatric Cardiology [facility]</content>
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 Outpatient<td><content ID="_[id number]">Office Visit</content>
<content><content styleCode="xLabel xSecondary">Encounter Reason:</content><content ID="_[id number]" styleCode="xSecondary">Office Visit - Note for "Office Visit": Ms. Topete returns today for follow-up of tetralogy of [...] should be strongly considered to undergo repair at that point. The group felt that not only would she need VSD patch repair as well as an RV- PA valved conduit; but, she would also require a Bentall procedure because of very dilated ascending aorta and aortic root with some aortic insufficiency. The option of waiting until she was sicker and then going to transplant was also discussed.She had been without follow-up since that time - admittedly of her own choosing. She attributes this to complex medical and social issues. She [...] during the pandemic. She had started working at [employer]. This was the first time she has worked in ~20 years. She was enjoying it and was not having issues. She still follows with a neurologist for a history of brain abscess and seizures.She has done well since her last visit. An event monitor was placed and demonstrated predominantly PVCS. Her palpitations are unchanged. She has not passed [...] loss, night sweats. She has cyanosis at baseline.</content></content>
<content><content styleCode="xSecondary xLabel">Encounter Diagnosis:</content><content ID="_[id number]" styleCode="xSecondary">Tetralogy of Fallot (Renamed from Fallot tetralogy)</content><content styleCode="xSecondary">, </content><content [id number]" styleCode="xSecondary">Palpitations</content><content styleCode="xSecondary">, </content><content [id number]" styleCode="xSecondary">Fatigue</content><content styleCode="xSecondary">, </content><content [id number]" styleCode="xSecondary">Cyanosis (Renamed from Blue color skin)</content><content styleCode="xSecondary">, </content><content [id number]" styleCode="xSecondary">Brain abscess (Renamed from Abscess of brain)</content><content styleCode="xSecondary">, </content><content [id number]" styleCode="xSecondary">Seizure disorder</content><content styleCode="xSecondary">, </content><content ID="_[id number]" styleCode="xSecondary">ANEURYSM, ASCENDING, AORTIC (DILATION) </content><content styleCode="xSecondary">, </content><content ID="_[id number]" styleCode="xSecondary">Aortopulmonary collateral vessel</content><content styleCode="xSecondary">, </content><content ID="_[id number]" styleCode="xSecondary">AORTIC ARCH, ANOMOLY OF (RAA,DAA, RINGS) SUBCLAV </content></content></td><td><content styleCode="xSecondary">09-Feb-2021 10:00 </content><content styleCode="xLabel xSecondary"> To </content><content styleCode="xSecondary">09-Feb-2021 10:55</content>
<content styleCode="xSecondary">[facility]</content>
</td><td></td> [facility] 02/09/2021 10:00:00 AM EDT - 02/09/2021 10:55:27 AM EDT Office Visit - Note for "Office Visit": Ms. Topete returns today for follow-up of tetralogy of [...] should be strongly considered to undergo repair at that point. The group felt that not only would she need VSD patch repair as well as an RV- PA valved conduit; but, she would also require a Bentall procedure because of very dilated ascending aorta and aortic root with some aortic insufficiency. The option of waiting until she was sicker and then going to transplant was also discussed.She had been without follow-up since that time - admittedly of her own choosing. She attributes this to complex medical and social issues. She [...] during the pandemic. She had started working at [employer]. This was the first time she has worked in ~20 years. She was enjoying it and was not having issues. She still follows with a neurologist for a history of brain abscess and seizures.She has done well since her last visit. An event monitor was placed and demonstrated predominantly PVCS. Her palpitations are unchanged. She has not passed [...] loss, night sweats. She has cyanosis at baseline.AORTIC ARCH, ANOMOLY OF (RAA,DAA, RINGS) SUBCLAV (747.21)Aortopulmonary collateral vesselANEURYSM, ASCENDING, AORTIC (DILATION) (441.9)Seizure disorderBrain abscess (Renamed from Abscess of brain)Cyanosis (Renamed from Blue color skin)FatiguePalpitationsTetralogy of Fallot (745.2) [facility] ([facility]) Office Visit - Note for "Office Visit": Ms. Topete returns today for follow-up of tetralogy of [...] should be strongly considered to undergo repair at that point. The group felt that not only would she need VSD patch repair as well as an RV- PA valved conduit; but, she would also require a Bentall procedure because of very dilated ascending aorta and aortic root with some aortic insufficiency. The option of waiting until she was sicker and then going to transplant was also discussed.She had been without follow-up since that time - admittedly of her own choosing. She attributes this to complex medical and social issues. She [...] during the pandemic. She had started working at [employer]. This was the first time she has worked in ~20 years. She was enjoying it and was not having issues. She still follows with a neurologist for a history of brain abscess and seizures.She has done well since her last visit. An event monitor was placed and demonstrated predominantly PVCS. Her palpitations are unchanged. She has not passed [...] night sweats. She has cyanosis at baseline. AORTIC ARCH, ANOMOLY OF (RAA,DAA, RINGS) SUBCLAV (747.21) Aortopulmonary collateral vessel ANEURYSM, ASCENDING, AORTIC (DILATION) ( 441.9) Seizure disorder Brain abscess (Renamed from Abscess of b rain) Cyanosis (Renamed from Blue color skin) Fatigue Palpitations Tetralogy of Fallot (745.2) Outpatient Attender: [place] OROZCO Main Community [facility] 01/13/2021 10:30:00 AM EDT BARRETT ([facility]ESSENIA Pak) Procedure Only<td><content ID="_[id number]">Procedure Only</content>
<content><content styleCode="xSecondary xLabel">Encounter Diagnosis:</content><content ID="_[id number]" styleCode="xSecondary">Palpitations</content></content></td><td><content styleCode="xSecondary">13-Dec-2020 17:00 </content><content styleCode="xLabel xSecondary"> To </content><content styleCode="xSecondary">07-Mar-2021 15:37</content>
<content styleCode="xSecondary">[facility]</content>
</td><td></td> [facility] 12/13/2020 05:00:00 PM EST - 03/07/2021 03:37:06 PM EDT Palpitations Allscript s ([facility]) Palpitations Procedure Only<td><content [id number]">Procedure Only</content>
<content><content styleCode="xSecondary xLabel">Encounter Diagnosis:</content><content [id number]" styleCode="xSecondary">Tetralogy of Fallot (Renamed from Fallot tetralogy)</content></content></td><td><content styleCode="xSecondary"> 13-Dec-2020 11:00 </content><content styleCode="xLabel xSecondary"> To </content><content styleCode="xSecondary">13-Dec-2020 11:52</content>
<content styleCode="xSecondary">[facility]</content>
</td><td></td> [facility] 12/13/2020 11:00:00 AM EST - 12/13/2020 11:52:18 AM EST Tetralogy of Fallot (745.2) [facility] ([facility]) Tetralogy of Fallot (745.2) <td><content ID="_[id number]">Office Visit</content>
<content><content styleCode="xLabel xSecondary">Encounter Reason:</content><content ID="_[id number]" styleCode="xSecondary">Office Visit - Note for "Office Visit": Ms. Topete returns today for follow-up of tetralogy of [...] should be strongly considered to undergo repair at that point. The group felt that not only would she need VSD patch repair as well as an RV- PA valved conduit; but, she would also require a Bentall procedure because of very dilated ascending aorta and aortic root with some aortic insufficiency. The option of waiting until she was sicker and then going to transplant was also discussed.She had been without follow-up since that time - admittedly of her own choosing. She attributes this to complex medical and social issues. She [...] during the pandemic. She had started working at [employer]. This was the first time she has worked in ~20 years. She was enjoying it and was not having issues. She still follows with a neurologist for a history of brain abscess and seizures.However, [...] few seconds to minutes. She also feels tired/sleepy. She has had to cut back on her work hours because "I'm just exhausted." There has been no significant change in her exercise capacity. There have been no fevers, weight loss, night sweats. She was recently evaluated at an urgent care center. A CXR was negative for infiltrates. A CMP was unremarkable. Her CBC demonstrated a WBC 5.1, RBC 5.4, HCT 15.8, PLT 201. Her RBC/HCT has been stable and mildly elevated from chronic cyanosis with a baseline sat ~85%. Her COVID testing was negative.She has cyanosis at baseline.</content></content>< br/><content><content styleCode="xSecondary xLabel">Encounter Diagnosis:</content><content ID="_[id number]" styleCode="xSecondary">Tetralogy of Fallot (Renamed from Fallot tetralogy)</content><content styleCode="xSecondary">, </content><content ID="_[id number]" styleCode="xSecondary">Aortopulmonary collateral vessel</content><content styleCode="xSecondary">, </content><content [id number]" styleCode="xSecondary">ANEURYSM, ASCENDING, AORTIC (DILATION) </content><content styleCode="xSecondary">, </content><content [id number]" styleCode="xSecondary">Seizure disorder</content><content styleCode="xSecondary">, </content><content [id number]" styleCode="xSecondary">Brain abscess (Renamed from Abscess of brain)</content><content styleCode="xSecondary">, </content><content ID="_[id number]" styleCode="xSecondary">Cyanosis (Renamed from Blue color skin)</content><content styleCode="xSecondary">, </content><content [id number]" styleCode="xSecondary">Palpitations</content><content styleCode="xSecondary">, </content><content [id number]" styleCode="xSecondary">Fatigue</content></content></td><td><content styleCode="xSecondary">13-Dec-2020 11:00 </content><content styleCode="xLabel xSecondary"> To </content><content styleCode="xSecondary">13-Dec-2020 12:19</content>
<content styleCode="xSecondary">Pediatric [facility]iology [facility]</content>
</td><td></td>Outpatient Pediatric [facility]iol [facility] 12/13/2020 11:00:00 AM EST - 12/13/2020 12:19:01 PM EST Office Visit - Note for "Office Visit": Ms. Topete returns today for follow-up of tetralogy of [...] should be strongly considered to undergo repair at that point. The group felt that not only would she need VSD patch repair as well as an RV- PA valved conduit; but, she would also require a Bentall procedure because of very dilated ascending aorta and aortic root with some aortic insufficiency. The option of waiting until she was sicker and then going to transplant was also discussed.She had been without follow-up since that time - admittedly of her own choosing. She attributes this to complex medical and social issues. She [...] during the pandemic. She had started working at [employer]. This was the first time she has worked in ~20 years. She was enjoying it and was not having issues. She still follows with a neurologist for a history of brain abscess and seizures.However, [...] few seconds to minutes. She also feels tired/sleepy. She has had to cut back on her work hours because "I'm just exhausted." There has been no significant change in her exercise capacity. There have been no fevers, weight loss, night sweats. She was recently evaluated at an urgent care center. A CXR was negative for infiltrates. A CMP was unremarkable. Her CBC demonstrated a WBC 5.1, RBC 5.4, HCT 15.8, PLT 201. Her RBC/HCT has been stable and mildly elevated from chronic cyanosis with a baseline sat ~85%. Her COVID testing was negative.She has cyanosis at baseline.FatiguePalpitationsCyanosis (Renamed from Blue color skin)Brain abscess (Renamed from Abscess of brain)Seizure disorderANEURYSM, ASCENDING, AORTIC (DILATION) (441.9) Aortopulmonary collateral vesselTetralogy of Fallot (745.2) [facility] ([facility]) Office Visit - Note for "Office Visit": Ms. 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 She remains otherwise unoperated. She had been followed by our group until 09/10/12 and was lost to follow up until ~1 year ago. Our group last discussed her case in conference on January 10, 2010 and reviewed her previous catheterization as well as a more updated MRI and felt that she should be strongly considered to undergo repair at that point. The group felt that not only would she need VSD patch repair as well as an RV- PA valved conduit; but, she would also require a Bentall procedure because of very dilated ascending aorta and aortic root with some aortic insufficiency. The option of waiting until she was sicker and then going to transplant was also discussed.She had been without follow-up since that time - admittedly of her own choosing. She attributes this to complex medical and social issues. She [...] during the pandemic. She had started working at [employer]. This was the first time she has worked in ~20 years. She was enjoying it and was not having issues. She still follows with a neurologist for a history of brain abscess and seizures.However, [...] few seconds to minutes. She also feels tired/sleepy. She has had to cut back on her work hours because "I'm just exhausted." There has been no significant change in her exercise capacity. There have been no fevers, weight loss, night sweats. She was recently evaluated at an urgent care center. A CXR was negative for infiltrates. A CMP was unremarkable. Her CBC demonstrated a WBC 5.1, RBC 5.4, HCT 15.8, PLT 201. Her RBC/HCT has been stable and mildly elevated from chronic cyanosis with a baseline sat ~85%. Her COVID testing was negative.She has cyanosis at baseline. Fatigue Palpitations Cyanosis (Renamed from Blue color skin) Brain abscess (Renamed from Abscess of b rain) Seizure disorder ANEURYSM, ASCENDING, AORTIC (DILATION) ( 441.9) Aortopulmonary collateral vessel Tetralogy of Fallot (745.2) Outpatient Attender: [place] OROZCO Main office [facility] 10/19/2020 07:15:00 AM LIVAN HYDE ([facility] YESSENIA Pak) <td><content ID="_[id number]">Procedure Only</content>
<content><content styleCode="xSecondary xLabel">Encounter Diagnosis:</content><content ID="_[id number]" styleCode="xSecondary">Tetralogy of Fallot (Renamed from Fallot tetralogy)</content></content></td><td><content styleCode="xSecondary"> 31-May-2020 13:58 </content><content styleCode="xLabel xSecondary"> To </content><content styleCode="xSecondary">31-May-2020 14:47</content>
<content styleCode="xSecondary">Pediatric Cardiology [facility]</content>
</td><td></td>Procedure Only [facility] 05/31/2020 01:58:08 PM EDT - 05/31/2020 02:47:13 PM EDT Tetralogy of Fallot (745.2) [facility] ([facility]) Tetralogy of Fallot (745.2) Outpatient<td><content [id number]">Office Visit</content>
<content><content styleCode="xLabel xSecondary">Encounter Reason:</content><content ID="_[id number]" styleCode="xSecondary">Office Visit - Note for "Office Visit": Ms. Topete was last seen on 09/10/[address] Conklin. She had since been lost to follow up. She returns [...] should be strongly considered to undergo repair at that point. The group felt that not only would she need VSD patch repair as well as an RV- PA valved conduit; but, she would also require a Bentall procedure because of very dilated ascending aorta and aortic root with some aortic insufficiency. The option of waiting until she was sicker and then going to transplant was also discussed.She had been without follow-up since that time - admittedly of her own choosing. She attributes this to complex medical and social issues. She [...] done well. She has started working at [employer]. This is the first time she has worked in ~20 years. She is enjoying it and is not having issues. She still follows with a neurologist for a history of brain abscess and seizures.</content></content>
<content><content styleCode="xSecondary xLabel">Encounter Diagnosis:</content><content ID="_[id number]" styleCode="xSecondary">Tetralogy of Fallot (Renamed from Fallot tetralogy)</content><content styleCode="xSecondary">, </content><content [id number]" styleCode="xSecondary">Pulmonary valve atresia, acquired </content><content styleCode="xSecondary">, </content><content [id number]" styleCode="xSecondary">AORTIC ARCH, ANOMOLY OF (RAA,DAA, RINGS) SUBCLAV </content><content styleCode="xSecondary">, </content><content [id number]" styleCode="xSecondary">Cyanosis (Renamed from Blue color skin)</content><content styleCode="xSecondary">, </content><content [id number]" styleCode="xSecondary">Brain abscess (Renamed from Abscess of brain)</content><content styleCode="xSecondary">, </content><content [id number]" styleCode="xSecondary">Seizure disorder</content><content styleCode="xSecondary">, </content><content [id number]" styleCode="xSecondary">ANEURYSM, ASCENDING, AORTIC (DILATION) (441.9)</content><content styleCode="xSecondary">, </content><content [id number]" styleCode="xSecondary">Aortopulmonary collateral vessel</content></content></td><td><content styleCode="xSecondary">31-May-2020 13:29 </content><content styleCode="xLabel xSecondary"> To </content><content styleCode="xSecondary">01-Jun-2020 14:44</content>
<content styleCode="xSecondary">[facility]</content>
</td><td></td> [facility] 05/31/2020 01:29:15 PM EDT - 06/01/2020 02:44:56 PM EDT Office Visit - Note for "Office Visit": Ms. Topete was last seen on 09/10/[address] Conklin. She had since been lost to follow up. She returns today for follow-up of tetralogy of Fallot with acqui red pulmonary valve atresia and large aortopulmonary collaterals for which she has undergone a left modified Veronica-Taussig shunt back in October 1983. She remains otherwise unoperated. Our group last discussed her case in conference on January 10, 2010 and reviewed her previous catheterization as well as a more updated MRI and felt that she should be strongly considered to undergo repair at that point. The group felt that not only would she need VSD patch repair as well as an RV- PA valved conduit; but, she would also require a Bentall procedure because of very dilated ascending aorta and aortic root with some aortic insufficiency. The option of waiting until she was sicker and then going to transplant was also discussed.She had been without follow-up since that time - admittedly of her own choosing. She attributes this to complex medical and social issues. She [...] done well. She has started working at [employer]. This is the first time she has worked in ~20 years. She is enjoying it and is not having issues. She still follows with a neurologist for a history of brain abscess and seizures.Aortopulmonary collateral vesselANEURYSM, ASCENDING, AORTIC (DILATION) (441.9)Seizure disorderBrain abscess (Renamed from Abscess of brain)Cyanosis (Renamed from Blue color skin)AORTIC ARCH, ANOMOLY OF (RAA,DAA, RINGS) SUBCLAV (747.21)Pulmonary valve atresia, acquired (424.3)Tetralogy of Fallot (745.2) [facility] ([facility]) Office Visit - Note for "Office Visit": Ms. Topete was last seen on 09/10/[address] Conklin. She had since been lost to follow up. 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 She remains otherwise unoperated. Our group last discussed her case in conference on January 10, 2010 and reviewed her previous catheterization as well as a more updated MRI and felt that she should be strongly considered to undergo repair at that point. The group felt that not only would she need VSD patch repair as well as an RV- PA valved conduit; but, she would also require a Bentall procedure because of very dilated ascending aorta and aortic root with some aortic insufficiency. The option of waiting until she was sicker and then going to transplant was also discussed.She had been without follow-up since that time - admittedly of her own choosing. She attributes this to complex medical and social issues. She [...] done well. She has started working at [employer]. This is the first time she has worked in ~20 years. She is enjoying it and is not having issues. She still follows with a neurologist for a history of brain abscess and seizures. Aortopulmonary collateral vessel ANEURYSM, ASCENDING, AORTIC (DILATION) ( 441.9) Seizure disorder Brain abscess (Renamed from Abscess of b rain) Cyanosis (Renamed from Blue color skin) AORTIC ARCH, ANOMOLY OF (RAA,DAA, RINGS) SUBCLAV (747.21) Pulmonary valve atresia, acquired (424.3 ) Tetralogy of Fallot (745.2) Immunizations Vaccine Date Status Description Data Source(s) COVID-19 VACCINE Enval 11/01/2020 12:00:00 AM EST completed [facility] Vaccine Series Complete: YESThis Data wa s Submitted to [facility] Via [employer]. COVID-19 VACCINE Pfizer 10/11/2020 12:00:00 AM EST completed [facility] Vaccine Series Complete: NOThis Data was Submitted to [facility] Via [employer]. INFLUENZA VIRUS VACCINE QUADRIVALENT 2019- (6 MOS AN D UP) 08/20/2020 12:00:00 AM EST completed [facility] Medications Medication Brand Name Start Date Product Form Dose Route Admi nistrative Instructions Pharmacy Instructions Status Indications Reaction Description Data Source(s) 10 mg 06/06/2021 12:00:00 AM EDT tablet 60 TAKE ONE TABLET BY MOUTH TWICE A DAY NEEDED MAXIMUM DAILY DOSE = 2 TAKE ONE TABLET BY MOUTH TWICE A DAY NEEDED MAXIMUM DAILY DOSE = 2 SOLD: 07/11/2021 [facility] 10 mg 06/06/2021 12:00:00 AM EDT tablet 60 TAKE ONE TABLET BY MOUTH TWICE A DAY NEEDED MAXIMUM DAILY DOSE = 2 TAKE ONE TABLET BY MOUTH TWICE A DAY NEEDED MAXIMUM DAILY DOSE = 2 SOLD: 06/11/2021 [facility] 1,250 mcg (50,000 unit) 05/10/2021 12:00:00 AM EDT capsule 4 TAKE 1 CAPSULE BY MOUTH ONCE A WEEK TAKE 1 CAPSULE BY MOUTH ONCE A WEEK SOLD: 05/12/2021 [facility] 1,250 mcg (50,000 unit) 05/10/2021 12:00:00 AM EDT capsule 4 TAKE 1 CAPSULE BY MOUTH ONCE A WEEK TAKE 1 CAPSULE BY MOUTH ONCE A WEEK SOLD: 06/11/2021 [facility] 1,250 mcg (50,000 unit) 05/10/2021 12:00:00 AM EDT capsule 4 TAKE 1 CAPSULE BY MOUTH ONCE A WEEK TAKE 1 CAPSULE BY MOUTH ONCE A WEEK SOLD: 07/11/2021 [facility] 100 mg 05/09/2021 12:00:00 AM EDT tablet 90 TAKE 1 & 1/2 TABLETS BY MOUTH TWO TIMES A DAY MAXIMUM DAILY DOSE = 3 TAKE 1 & 1/2 TABLETS BY MOUTH TWO TIMES A DAY MAXIMUM DAILY DOSE = 3 SOLD: 06/11/2021 [facility] 750 mg 05/09/2021 12:00:00 AM EDT tablet 60 TAKE ONE TABLET BY MOUTH TWO TIMES A DAY MAXIMUM DAILY DOSE = 2 TAKE ONE TABLET BY MOUTH TWO TIMES A DAY MAXIMUM DAILY DOSE = 2 SOLD: 06/11/2021 [facility] Escitalopram 20 MG Oral Tablet ESCITALOPRAM OXALATE 05/09/2021 1 2:00:00 AM EDT tablet 30 TAKE ONE TABLET BY MOUTH ONCE DA HANG MAXIMUM DAILY DOSE = 1 TAKE ONE TABLET BY MOUTH ONCE DAILY MAXIMUM DAILY DOSE = 1 SOLD: 07/11/2021 [facility] 100 mg 05/09/2021 12:00:00 AM EDT tablet 90 TAKE 1 & 1/2 TABLETS BY MOUTH TWO TIMES A DAY MAXIMUM DAILY DOSE = 3 TAKE 1 & 1/2 TABLETS BY MOUTH TWO TIMES A DAY MAXIMUM DAILY DOSE = 3 SOLD: 07/11/2021 [facility] 750 mg 05/09/2021 12:00:00 AM EDT tablet 60 TAKE ONE TABLET BY MOUTH TWO TIMES A DAY MAXIMUM DAILY DOSE = 2 TAKE ONE TABLET BY MOUTH TWO TIMES A DAY MAXIMUM DAILY DOSE = 2 SOLD: 07/11/2021 [facility] Escitalopram 20 MG Oral Tablet ESCITALOPRAM OXALATE 05/09/2021 1 2:00:00 AM EDT tablet 30 TAKE ONE TABLET BY MOUTH ONCE DA HANG MAXIMUM DAILY DOSE = 1 TAKE ONE TABLET BY MOUTH ONCE DAILY MAXIMUM DAILY DOSE = 1 SOLD: 06/11/2021 [facility] 750 mg 05/09/2021 12:00:00 AM EDT tablet 60 TAKE ONE TABLET BY MOUTH TWO TIMES A DAY MAXIMUM DAILY DOSE = 2 TAKE ONE TABLET BY MOUTH TWO TIMES A DAY MAXIMUM DAILY DOSE = 2 SOLD: 05/12/2021 [facility] Escitalopram 20 MG Oral Tablet ESCITALOPRAM OXALATE 05/09/2021 1 2:00:00 AM EDT tablet 30 TAKE ONE TABLET BY MOUTH ONCE DA HANG MAXIMUM DAILY DOSE = 1 TAKE ONE TABLET BY MOUTH ONCE DAILY MAXIMUM DAILY DOSE = 1 SOLD: 05/12/2021 [facility] 100 mg 05/09/2021 12:00:00 AM EDT tablet 90 TAKE 1 & 1/2 TABLETS BY MOUTH TWO TIMES A DAY MAXIMUM DAILY DOSE = 3 TAKE 1 & 1/2 TABLETS BY MOUTH TWO TIMES A DAY MAXIMUM DAILY DOSE = 3 SOLD: 05/12/2021 [facility] 600 mg 04/03/2021 12:00:00 AM EDT tablet 30 TAKE ONE TABLET BY MOUTH EVERY 6 HOURS NEEDED FOR PAIN TAKE ONE TABLET BY MOUTH EVERY 6 HOURS A S NEEDED FOR PAIN SOLD: 04/03/2021 [facility] Acetaminophen 325 MG / Hydrocodone Bitartrate 5 MG Ora l Tablet 5-325 mg HYDROCODONE/ACETAMINOPHEN 04/03/2021 12:00:00 AM EDT tablet 12 TAKE 1 TABLET BY MOUTH EVERY 6 HOURS NEEDED FOR PAIN LEVEL 7 - 10 MAXIMUM DAILY DOSE = 4 TABLETS TAKE 1 TABLET BY MOUTH EVERY 6 HOURS NEEDED FOR PAIN LEVEL 7 - 10 MAXIMUM DAILY DOSE = 4 TABLETS SOLD: 04/03/2021 [facility] 100 mg 10/29/2020 12:00:00 AM EST tablet 90 TAKE 1 & 1/2 TABLETS BY MOUTH TWO TIMES A DAY MAXIMUM DAILY DOSE = 3 TAKE 1 & 1/2 TABLETS BY MOUTH TWO TIMES A DAY MAXIMUM DAILY DOSE = 3 SOLD: 01/09/2021 [facility] 100 mg 10/29/2020 12:00:00 AM EST tablet 90 TAKE 1 & 1/2 TABLETS BY MOUTH TWO TIMES A DAY MAXIMUM DAILY DOSE = 3 TAKE 1 & 1/2 TABLETS BY MOUTH TWO TIMES A DAY MAXIMUM DAILY DOSE = 3 SOLD: 03/13/2021 [facility] 100 mg 10/29/2020 12:00:00 AM EST tablet 90 TAKE 1 & 1/2 TABLETS BY MOUTH TWO TIMES A DAY MAXIMUM DAILY DOSE = 3 TAKE 1 & 1/2 TABLETS BY MOUTH TWO TIMES A DAY MAXIMUM DAILY DOSE = 3 SOLD: 11/07/2020 [facility] 750 mg 10/29/2020 12:00:00 AM EST tablet 60 TAKE ONE TABLET BY MOUTH TWICE A DAY MAXIMUM DAILY DOSE = 2 TAKE ONE TABLET BY MOUTH TWICE A DAY MAX IMUM DAILY DOSE = 2 SOLD: 04/12/2021 [facility] 750 mg 10/29/2020 12:00:00 AM EST tablet 60 TAKE ONE TABLET BY MOUTH TWICE A DAY MAXIMUM DAILY DOSE = 2 TAKE ONE TABLET BY MOUTH TWICE A DAY MAX IMUM DAILY DOSE = 2 SOLD: 12/11/2020 [facility] Levetiracetam 750 MG Oral Tablet LEVETIRACETAM 10/29/2020 12:0 0:00 AM EST tablet 60 TAKE ONE TABLET BY MOUTH TWICE A DAY MAXIMUM DAILY DOSE = 2 TAKE ONE TABLET BY MOUTH TWICE A DAY MAXIMUM DAILY DOSE = 2 SOLD: 02/10/2021 [facility] 100 mg 10/29/2020 12:00:00 AM EST tablet 90 TAKE 1 & 1/2 TABLETS BY MOUTH TWO TIMES A DAY MAXIMUM DAILY DOSE = 3 TAKE 1 & 1/2 TABLETS BY MOUTH TWO TIMES A DAY MAXIMUM DAILY DOSE = 3 SOLD: 02/10/2021 [facility] 100 mg 10/29/2020 12:00:00 AM EST tablet 90 TAKE 1 & 1/2 TABLETS BY MOUTH TWO TIMES A DAY MAXIMUM DAILY DOSE = 3 TAKE 1 & 1/2 TABLETS BY MOUTH TWO TIMES A DAY MAXIMUM DAILY DOSE = 3 SOLD: 04/12/2021 [facility] 100 mg 10/29/2020 12:00:00 AM EST tablet 90 TAKE 1 & 1/2 TABLETS BY MOUTH TWO TIMES A DAY MAXIMUM DAILY DOSE = 3 TAKE 1 & 1/2 TABLETS BY MOUTH TWO TIMES A DAY MAXIMUM DAILY DOSE = 3 SOLD: 12/11/2020 [facility] 750 mg 10/29/2020 12:00:00 AM EST tablet 60 TAKE ONE TABLET BY MOUTH TWICE A DAY MAXIMUM DAILY DOSE = 2 TAKE ONE TABLET BY MOUTH TWICE A DAY MAX IMUM DAILY DOSE = 2 SOLD: 01/11/2021 [facility] 750 mg 10/29/2020 12:00:00 AM EST tablet 60 TAKE ONE TABLET BY MOUTH TWICE A DAY MAXIMUM DAILY DOSE = 2 TAKE ONE TABLET BY MOUTH TWICE A DAY MAX IMUM DAILY DOSE = 2 SOLD: 03/13/2021 [facility] 750 mg 10/29/2020 12:00:00 AM EST tablet 60 TAKE ONE TABLET BY MOUTH TWICE A DAY MAXIMUM DAILY DOSE = 2 TAKE ONE TABLET BY MOUTH TWICE A DAY MAX IMUM DAILY DOSE = 2 SOLD: 11/07/2020 [facility] 1,250 mcg (50,000 unit) 10/19/2020 12:00:00 AM EST capsule 4 TAKE 1 CAPSULE BY MOUTH ONCE A WEEK TAKE 1 CAPSULE BY MOUTH ONCE A WEEK SOLD: 11/07/2020 [facility] Escitalopram 20 MG Oral Tablet ESCITALOPRAM OXALATE 10/19/2020 1 2:00:00 AM EST tablet 30 TAKE ONE TABLET BY MOUTH EVERY D AY TAKE ONE TABLET BY MOUTH EVERY DAY SOLD: 02/10/2021 [facility] Escitalopram 20 MG Oral Tablet ESCITALOPRAM OXALATE 10/19/2020 1 2:00:00 AM EST tablet 30 TAKE ONE TABLET BY MOUTH EVERY D AY TAKE ONE TABLET BY MOUTH EVERY DAY SOLD: 12/11/2020 [facility] Escitalopram 20 MG Oral Tablet ESCITALOPRAM OXALATE 10/19/2020 1 2:00:00 AM EST tablet 30 TAKE ONE TABLET BY MOUTH EVERY D AY TAKE ONE TABLET BY MOUTH EVERY DAY SOLD: 04/12/2021 [facility] 10 mg 10/19/2020 12:00:00 AM EST tablet 60 TAKE ONE TABLET BY MOUTH TWICE A DAY NEEDED MAXIMUM DAILY DOSE = 2 TAKE ONE TABLET BY MOUTH TWICE A DAY NEEDED MAXIMUM DAILY DOSE = 2 SOLD: 03/13/2021 [facility] 1,250 mcg (50,000 unit) 10/19/2020 12:00:00 AM EST capsule 4 TAKE 1 CAPSULE BY MOUTH ONCE A WEEK TAKE 1 CAPSULE BY MOUTH ONCE A WEEK SOLD: 04/12/2021 [facility] 10 mg 10/19/2020 12:00:00 AM EST tablet 60 TAKE ONE TABLET BY MOUTH TWICE A DAY NEEDED MAXIMUM DAILY DOSE = 2 TAKE ONE TABLET BY MOUTH TWICE A DAY NEEDED MAXIMUM DAILY DOSE = 2 SOLD: 05/12/2021 [facility] 1,250 mcg (50,000 unit) 10/19/2020 12:00:00 AM EST capsule 4 TAKE 1 CAPSULE BY MOUTH ONCE A WEEK TAKE 1 CAPSULE BY MOUTH ONCE A WEEK SOLD: 12/11/2020 [facility] 1,250 mcg (50,000 unit) 10/19/2020 12:00:00 AM EST capsule 4 TAKE 1 CAPSULE BY MOUTH ONCE A WEEK TAKE 1 CAPSULE BY MOUTH ONCE A WEEK SOLD: 02/10/2021 [facility] Escitalopram 20 MG Oral Tablet ESCITALOPRAM OXALATE 10/19/2020 1 2:00:00 AM EST tablet 30 TAKE ONE TABLET BY MOUTH EVERY D AY TAKE ONE TABLET BY MOUTH EVERY DAY SOLD: 11/07/2020 [facility] Escitalopram 20 MG Oral Tablet ESCITALOPRAM OXALATE 10/19/2020 1 2:00:00 AM EST tablet 30 TAKE ONE TABLET BY MOUTH EVERY D AY TAKE ONE TABLET BY MOUTH EVERY DAY SOLD: 01/11/2021 [facility] 10 mg 10/19/2020 12:00:00 AM EST tablet 36 TAKE ONE TABLET BY MOUTH TWICE A DAY NEEDED MAXIMUM DAILY DOSE = 2 TAKE ONE TABLET BY MOUTH TWICE A DAY NEEDED MAXIMUM DAILY DOSE = 2 SOLD: 01/09/2021 [facility] 10 mg 10/19/2020 12:00:00 AM EST tablet 60 TAKE ONE TABLET BY MOUTH TWICE A DAY NEEDED MAXIMUM DAILY DOSE = 2 TAKE ONE TABLET BY MOUTH TWICE A DAY NEEDED MAXIMUM DAILY DOSE = 2 SOLD: 11/07/2020 [facility] Escitalopram 20 MG Oral Tablet ESCITALOPRAM OXALATE 10/19/2020 1 2:00:00 AM EST tablet 30 TAKE ONE TABLET BY MOUTH EVERY D AY TAKE ONE TABLET BY MOUTH EVERY DAY SOLD: 03/13/2021 [facility] 10 mg 10/19/2020 12:00:00 AM EST tablet 60 TAKE ONE TABLET BY MOUTH TWICE A DAY NEEDED MAXIMUM DAILY DOSE = 2 TAKE ONE TABLET BY MOUTH TWICE A DAY NEEDED MAXIMUM DAILY DOSE = 2 SOLD: 02/10/2021 [facility] 1,250 mcg (50,000 unit) 10/19/2020 12:00:00 AM EST capsule 4 TAKE 1 CAPSULE BY MOUTH ONCE A WEEK TAKE 1 CAPSULE BY MOUTH ONCE A WEEK SOLD: 03/13/2021 [facility] 10 mg 10/19/2020 12:00:00 AM EST tablet 60 TAKE ONE TABLET BY MOUTH TWICE A DAY NEEDED MAXIMUM DAILY DOSE = 2 TAKE ONE TABLET BY MOUTH TWICE A DAY NEEDED MAXIMUM DAILY DOSE = 2 SOLD: 04/12/2021 [facility] 1,250 mcg (50,000 unit) 10/19/2020 12:00:00 AM EST capsule 4 TAKE 1 CAPSULE BY MOUTH ONCE A WEEK TAKE 1 CAPSULE BY MOUTH ONCE A WEEK SOLD: 01/11/2021 [facility] 750 mg 09/09/2020 12:00:00 AM EST tablet 60 TAKE ONE TABLET BY MOUTH TWICE A DAY TAKE ONE TABLET BY MOUTH TWICE A DAY SOLD: 09/12/2020 [facility] 750 mg 09/09/2020 12:00:00 AM EST tablet 60 TAKE ONE TABLET BY MOUTH TWICE A DAY TAKE ONE TABLET BY MOUTH TWICE A DAY SOLD: 10/14/2020 [facility] 1,250 mcg (50,000 unit) 08/12/2020 12:00:00 AM EST capsule 4 TAKE 1 CAPSULE BY MOUTH ONCE WEEKLY TAKE 1 CAPSULE BY MOUTH ONCE WEEKLY SOLD: 09/12/2020 [facility] 1,250 mcg (50,000 unit) 08/12/2020 12:00:00 AM EST capsule 4 TAKE 1 CAPSULE BY MOUTH ONCE WEEKLY TAKE 1 CAPSULE BY MOUTH ONCE WEEKLY SOLD: 08/14/2020 [facility] 1,250 mcg (50,000 unit) 08/12/2020 12:00:00 AM EST capsule 4 TAKE 1 CAPSULE BY MOUTH ONCE WEEKLY TAKE 1 CAPSULE BY MOUTH ONCE WEEKLY SOLD: 10/14/2020 [facility] 100 mg 08/11/2020 12:00:00 AM EST tablet 90 TAKE ONE AND ONE HALF TABLET BY MOUTH TWO TIMES A DAY TAKE ONE AND ONE HALF TABLET BY MOUTH TWO TIMES A DAY SOLD: 09/12/2020 [facility] 100 mg 08/11/2020 12:00:00 AM EST tablet 90 TAKE ONE AND ONE HALF TABLET BY MOUTH TWO TIMES A DAY TAKE ONE AND ONE HALF TABLET BY MOUTH TWO TIMES A DAY SOLD: 10/14/2020 [facility] 100 mg 08/11/2020 12:00:00 AM EST tablet 90 TAKE ONE AND ONE HALF TABLET BY MOUTH TWO TIMES A DAY TAKE ONE AND ONE HALF TABLET BY MOUTH TWO TIMES A DAY SOLD: 08/14/2020 [facility] Escitalopram 20 MG Oral Tablet ESCITALOPRAM OXALATE 07/13/2020 1 2:00:00 AM EDT tablet 30 TAKE ONE TABLET BY MOUTH EVERY D AY TAKE ONE TABLET BY MOUTH EVERY DAY SOLD: 08/14/2020 [facility] Escitalopram 20 MG Oral Tablet ESCITALOPRAM OXALATE 07/13/2020 1 2:00:00 AM EDT tablet 30 TAKE ONE TABLET BY MOUTH EVERY D AY TAKE ONE TABLET BY MOUTH EVERY DAY SOLD: 07/17/2020 [facility] Escitalopram 20 MG Oral Tablet ESCITALOPRAM OXALATE 07/13/2020 1 2:00:00 AM EDT tablet 30 TAKE ONE TABLET BY MOUTH EVERY D AY TAKE ONE TABLET BY MOUTH EVERY DAY SOLD: 09/12/2020 [facility] Escitalopram 20 MG Oral Tablet ESCITALOPRAM OXALATE 07/13/2020 1 2:00:00 AM EDT tablet 30 TAKE ONE TABLET BY MOUTH EVERY D AY TAKE ONE TABLET BY MOUTH EVERY DAY SOLD: 10/14/2020 [facility] 10 mg 05/16/2020 12:00:00 AM EDT tablet 60 TAKE ONE TABLET BY MOUTH TWICE A DAY NEEDED TAKE ONE TABLET BY MOUTH TWICE A DAY NEEDED SOLD: 07/20/2020 [facility] 10 mg 05/16/2020 12:00:00 AM EDT tablet 60 TAKE ONE TABLET BY MOUTH TWICE A DAY NEEDED TAKE ONE TABLET BY MOUTH TWICE A DAY NEEDED SOLD: 09/12/2020 [facility] 750 mg 03/16/2020 12:00:00 AM EDT tablet 60 TAKE ONE TABLET BY MOUTH TWICE A DAY TAKE ONE TABLET BY MOUTH TWICE A DAY SOLD: 07/17/2020 [facility] 750 mg 03/16/2020 12:00:00 AM EDT tablet 60 TAKE ONE TABLET BY MOUTH TWICE A DAY TAKE ONE TABLET BY MOUTH TWICE A DAY SOLD: 06/18/2020 [facility] 750 mg 03/16/2020 12:00:00 AM EDT tablet 60 TAKE ONE TABLET BY MOUTH TWICE A DAY TAKE ONE TABLET BY MOUTH TWICE A DAY SOLD: 08/14/2020 [facility] 1,250 mcg (50,000 unit) 02/27/2020 12:00:00 AM EDT capsule 4 TAKE ONE CAPSULE BY MOUTH EVERY WEEK TAKE ONE CAPSULE BY MOUTH EVERY WEEK SOLD: 07/17/2020 [facility] 1,250 mcg (50,000 unit) 02/27/2020 12:00:00 AM EDT capsule 4 TAKE ONE CAPSULE BY MOUTH EVERY WEEK TAKE ONE CAPSULE BY MOUTH EVERY WEEK SOLD: 06/21/2020 [facility] 100 mg 02/17/2020 12:00:00 AM EDT tablet 90 TAKE 1 AND 1/2 TABLETS BY MOUTH TWO TIMES A DAY TAKE 1 AND 1/2 TABLETS BY MOUTH TWO TIMES A DAY SOLD: 06/18/2020 [facility] 100 mg 02/17/2020 12:00:00 AM EDT tablet 90 TAKE 1 AND 1/2 TABLETS BY MOUTH TWO TIMES A DAY TAKE 1 AND 1/2 TABLETS BY MOUTH TWO TIMES A DAY SOLD: 07/17/2020 [facility] Escitalopram 20 MG Oral Tablet ESCITALOPRAM OXALATE 01/20/2020 1 2:00:00 AM EDT tablet 30 TAKE ONE TABLET BY MOUTH EVERY D AY TAKE ONE TABLET BY MOUTH EVERY DAY SOLD: 06/18/2020 [facility] Insurance Providers Payer name Policy type / Coverage type Policy ID Covered alliance party ID Covered alliance party's relationship to shaffer Policy Shaffer Plan Information Medicaid Secondary [id number] Medicare Primary [id number] MEDICAID HEA [id number] S [id number] MEDICARE MCA [id number] S [id number] MEDICARE MCA [id number] S [id number] [place] [id number] SP [id number] MEDICAID [id number] SP [id number] Medicaid Medigap Part B [id number] 30.0 Self [id number] Medicare Part B Medicare Primary [id number] Self [id number] MEDICARE [id number] SP [id number] A Medicaid Medigap Part B [id number] 30.0 Self [id number] Medicare Part B Medicare Primary [id number] Self [id number] Medicaid Medigap Part B [id number] 30.0 Self [id number] Medicare Part B Medicare Primary [id number] Self [id number] Medicaid Medigap Part B [id number] 30.0 Self [id number] Medicare Part B Medicare Primary [id number] Self [id number] Medicaid Medigap Part B [id number] 30.0 Self [id number] Medicare Part B Medicare Primary [id number] Self [id number] Medicaid [place] Medigap Part B [id number] Self [id number] Medicare Natl Gov't Servi Medicare Primary [id number] Self 1 [id number] Medicaid Medigap Part B [id number] 30.0 Self [id number] Medicare Part B Medicare Primary [id number] Self [id number] Medicare Part B Medicare Primary [id number] Self Medicaid Medicaid 1 1 [id number] Self 1 1 Medicaid [place] Medicaid [id number] Self Medicare Natl Gov't Servi Medicare Primary [id number] Self Medicare Medicare Primary [id number] Self [facility] [place] [id number] FOR LIFE UNAVAILABLE SP U NAVAILABLE [id number] [place] [id number] SP [id number] Y [id number] A MEDICARE [id number] SP [id number] Problems, Conditions, and Diagnoses No Information Surgeries/Procedures Procedure Description Date Indications Data Source(s) OFFICE OUTPATIENT VISIT 25 MINUTES 07/14/2021 12:00:00 AM EDT [facility] ([facility] ) ECG ROUTINE ECG W/LEAST 12 LDS W/I&R <td colspan="2"> ECG Routine, 12 Lead ([id number])</td><td> Status: Completed 25-May-2021 </td> 05/25/2021 08:19:22 AM EDT - 05/25/2021 08:33:30 AM EDT [facility] ([facility]) OFFICE OUTPATIENT VISIT 25 MINUTES 05/25 08:00:00 AM EDT - 06/07/2021 12:33:40 PM EDT [facility] ([facility]) ECG ROUTINE ECG W/LEAST 12 LDS W/I&R <td colspan="2"> ECG Routine, 12 Lead ([id number])</td><td> Status: Completed 09-Feb-2021 </td> 02/09/2021 09:59:12 AM EDT - 02/09/2021 10:10:38 AM EDT [facility] ([facility]) OFFICE OUTPATIENT VISIT 25 MINUTES 01/13/2021 12:00:00 AM EDT [facility] ([facility] ) COMPLETE TTHRC ECHO CONGENITAL CARDIAC ANOMALY <td col span="2"> 2D CONGENITAL COMPLETE ([id number])</td><td> Status: Completed 13-Dec-2020 </td> 12/13/2020 11:19:00 AM EST - 12/13/2020 11:19:00 AM EST [facility] ([facility]) ECG ROUTINE ECG W/LEAST 12 LDS W/I&R <td colspan="2"> ECG Routine, 12 Lead ([id number])</td><td> Status: Completed 13-Dec-2020 </td> 12/13/2020 11:03:36 AM EST - 12/13/2020 11:15:13 AM EST [facility] ([facility]) US echocardiogram for determining pericardial effusion ([id number]) <td colspan="2"> US echocardiogram for determining pericardial effusion (88711)</td><td> Status: Completed 31-May-2020 </td> 05/31/2020 02:01:00 PM EDT - 05/31/2020 03:15:58 PM EDT [facility] ([facility]) ECG ROUTINE ECG W/LEAST 12 LDS W/I&R <td colspan="2"> ECG Routine, 12 Lead ([id number])</td><td> Status: Completed 31-May-2020 </td> 05/31/2020 01:29:31 PM EDT - 05/31/2020 01:42:35 PM EDT [facility] ([facility]) Results ID Date Data Source [id number] 07/06/2021 02:05:00 PM EDT [facility] ([facility]) Name Value Range Interpretation Code Description Data Yuly rce(s) Supporting Document(s) Calcidiol [Mass/volume] in Serum or Plasma 52.5 ng/mL 30.0-100.0 [facility] ([facility]) A courtesy copy of this report has been sent to [phone] Levetiracetam [Mass/volume] in Serum or Plasma 32.7 ug/mL 10.0-40.0 [facility] A courtesy copy of this report has been sent to [phone] Topiramate [Mass/volume] in Serum or Plasma 17.0 ug/mL 2.0-25.0 [facility]) A courtesy copy of this report has been sent to [phone] Laboratory test finding (navigational concept) Laboratory test result [facility] ([facility]) A courtesy copy of this report has been sent to [phone] ID Date Data Source [id number] 03/14/2021 09:18:35 AM EDT [facility] Name Value Range Interpretation Code Description Data Yuly rce(s) Supporting Document(s) DIRECT O2 SAT 88.0 % (95.0-99.0) L [facility] ID Date Data Source [id number] 03/14/2021 09:18:35 AM EDT [facility] Name Value Range Interpretation Code Description Data Yuly rce(s) Supporting Document(s) SOURCE [facility] FIO2 [facility] DA PH 7.30 (7.35-7.45) L [facility] SPECIMEN RECEIVED UNLABELED,TESTING COMP LETED PER AUTHORIZATION [id number] PCO2 36 mm[Hg] (32-48) [facility] PO2 59 mm[Hg] (83-108) L [facility] O2 SATURATION 88.7 % (95.0-99.0) L [facility] BASE DEFICIT 8.2 mmol/L (0.0-2.0) H [facility] HCO3 17.2 mmol/L (21.0-29.0) L [facility] TOTAL CO2 18.3 mmol/L (23.0-32.0) L [facility] BODY TEMPERATURE 98.6 [degF] [facility] ID Date Data Source [id number] 03/14/2021 09:07:30 AM EDT [facility] Name Value Range Interpretation Code Description Data Yuly rce(s) Supporting Document(s) WBC 4.6 10*3/uL (4.1-11.0) [facility] [place] RBC 4.81 10*6/uL (4.00-5.40) [facility] HGB 15.6 g/dL (12.0-16.0) [facility] HCT 46.7 % (36.0-47.0) [facility] [address] [facility] [address] MCV 97.1 fL (80.0-95.0) H [facility] MCH 32.4 pg (27.0-32.0) H [facility] MCHC 33.4 g/dL (32.0-36.0) [facility] RDW 13.3 % (10.5-14.5) [facility] PLT 156 10*3/uL (150-450) [facility] MPV 7.7 fL (7.1-10.7) [facility] NEUT % 56.4 % (35.0-75.0) [facility] LYMPH % 33.3 % (16.0-52.0) [facility] MONO % 6.2 % (0.0-8.0) [facility] EOS % 3.4 % (0.0-5.0) [facility] BASO % 0.7 % (0.0-4.0) [facility] NEUT # 2.6 10*3/uL (1.8-7.7) [facility] LYMPH # 1.5 10*3/uL (1.2-4.8) [facility] MONO # 0.3 10*3/uL (0.0-0.8) [facility] Eosinophils [#/volume] in Blood by Automated count 0.2 10*3/uL (0.0-0 .5) [facility] BASO # 0.0 10*3/uL (0.0-0.2) [facility] ID Date Data Source [id number] 12/05/2020 12:00:00 AM EST [facility] Name Value Range Interpretation Code Description Data Yuly rce(s) Supporting Document(s) SARS-CoV2 Rapid Antigen Negative [facility] This lab was ordered by [facility] and reported by [facility]. ID Date Data Source [id number] 11/16/2020 01:46:00 PM EST [facility] ([facility]) Name Value Range Interpretation Code Description Data Yuly rce(s) Supporting Document(s) Topiramate [Mass/volume] in Serum or Plasma 12.2 ug/mL 2.0-25.0 [facility]) This test was developed and its performa nce characteristics determined by [facility]. It has not been cleared or approved by the Food and Drug Administration. Detection Limit = 1.0 Calcidiol [Mass/volume] in Serum or Plasma 56.8 ng/mL 30.0-100.0 [facility] ([facility]) Vitamin D deficiency has been defined by the Orient of Medicine and an Endocrine Society practice guideline as a level of serum 25-OH vitamin D less than 20 ng/mL (1,2). The Endocrine Society went on to further define vitamin D insufficiency as a level between 21 and 29 ng/mL (2). 1. IOM ([employer] of Medicine). 2010. Di etary reference intakes for calcium and D. [place]: The National Academies Press. 2. Cindi RICHMOND, Marianne CHILDRESS, Esdras flores MARSH, et al. Evaluation, treatment, and prevention of vitamin D deficiency: an Endocrine Society clinical practice guideline. JCEM. 2010; 96(7):1911-30. Laboratory test finding (navigational concept) Laboratory test result [facility]) Levetiracetam [Mass/volume] in Serum or Plasma 33.0 ug/mL 10.0-40.0 [facility] ([facility]) This test was developed and its performa nce characteristics determined by [facility]. It has not been cleared or approved by the Food and Drug Administration. ID Date Data Source [id number] 11/16/2020 01:46:00 PM EST [facility] ([facility]) Name Value Range Interpretation Code Description Data Yuly rce(s) Supporting Document(s) Glucose [Mass/volume] in Serum or Plasma 85 mg/dL 65-99 [facility] ([facility], ) Urea nitrogen [Mass/volume] in Serum or Plasma 13 mg/dL 6-24 [facility] ([facility]) Creatinine [Mass/volume] in Serum or Plasma 0.91 mg/dL 0.57-1.00 [facility] eGFR If NonAfricn Am 76 mL/min/1.73 [facility] ([facility]) eGFR If Africn Am 88 mL/min/1.73 [facility] Sodium [Moles/volume] in Serum or Plasma 138 mmol/L 134-144 [facility] ([facility]) Urea nitrogen/Creatinine [Mass Ratio] in Serum or Plasma 14 9 -23 [facility] ([facility]) Chloride [Moles/volume] in Serum or Plasma 107 mmol/L 96-106 [facility] ([facility]) Potassium [Moles/volume] in Serum or Plasma 5.0 mmol/L 3.5-5.2 [facility] ([facility]) Carbon dioxide, total [Moles/volume] in Serum or Plasma 18 mmol/L 20 -29 [facility] ([facility]) Calcium [Mass/volume] in Serum or Plasma 9.3 mg/dL 8.7-10.2 [facility] ([facility]) Albumin [Mass/volume] in Serum or Plasma 4.3 g/dL 3.8-4.8 [facility] ([facility]) Protein [Mass/volume] in Serum or Plasma 7.0 g/dL 6.0-8.5 [facility] ([facility]) Globulin [Mass/volume] in Serum by calculation 2.7 g/dL 1.5-4.5 [facility] ([facility]) Albumin/Globulin [Mass Ratio] in Serum or Plasma 1.6 1.2-2.2 [facility] ([facility]) Alkaline phosphatase [Enzymatic activity/volume] in Serum or Plasma 64 IU/L 39-117 [facility] ([facility]) Bilirubin.total [Mass/volume] in Serum or Plasma 0.3 mg/dL 0.0-1.2 [facility] ([facility]) Alanine aminotransferase [Enzymatic activity/volume] in Seru m or Plasma 11 IU/L 0-32 [facility] Aspartate aminotransferase [Enzymatic activity/volume] in Serum or Plasma 16 IU/L 0-40 [facility] ([facility] ) ID Date Data Source [id number] 11/16/2020 01:46:00 PM EST [facility] ([facility] ) Name Value Range Interpretation Code Description Data Yuly rce(s) Supporting Document(s) Erythrocytes [#/volume] in Blood by Automated count 5.35 x10E6/uL 3.7 7-5.28 [facility] ([facility] ) Leukocytes [#/volume] in Blood by Automated count 7.8 x10E3/uL 3.4-10 .8 [facility] ([facility] ) Erythrocyte mean corpuscular volume [Entitic volume] by Auto mated count 93 fL 79-97 [facility] Hematocrit [Volume Fraction] of Blood by Automated count 49.5 % 3 4.0-46.6 [facility] ([facility] ) Hemoglobin [Mass/volume] in Blood 15.9 g/dL 11.1-15.9 [facility] Erythrocyte mean corpuscular hemoglobin [Entitic mass] by Automated count 29.7 pg 26.6-33.0 [facility] ([facility] ) Erythrocyte mean corpuscular hemoglobin concentration [Mass/volume] by Automated count 32.1 g/dL 31.5-35.7 [facility] ([facility], ) Erythrocyte distribution width [Ratio] by Automated count 18.4 % 11.7-15.4 [facility] Platelets [#/volume] in Blood by Automated count 220 x10E3/uL 150-450 [facility] Lymphocytes/100 leukocytes in Blood by Automated count 30 % [facility] ([facility], ) Neutrophils/100 leukocytes in Blood by Automated count 59 % [facility] ([facility], ) Monocytes/100 leukocytes in Blood by Automated count 8 % [facility] Basophils/100 leukocytes in Blood by Automated count 1 % [facility] ([facility], ) Eosinophils/100 leukocytes in Blood by Automated count 2 % [facility] ([facility], ) Neutrophils [#/volume] in Blood by Automated count 4.7 x10E3/uL 1.4-7 .0 [facility] Immature cells [#/volume] in Blood Laboratory test result [facility] ([facility], ) Monocytes [#/volume] in Blood 0.6 x10E3/uL 0.1-0.9 [facility] ([facility]) Lymphocytes [#/volume] in Blood 2.3 x10E3/uL 0.7-3.1 [facility] ([facility]) Basophils [#/volume] in Blood by Automated count 0.0 x10E3/uL 0.0-0.2 [facility] ([facility]) Eosinophils [#/volume] in Blood by Automated count 0.2 x10E3/uL 0.0-0 .4 [facility] Immature granulocytes/100 leukocytes in Blood by Automated count 0 % [facility] Immature granulocytes [#/volume] in Blood by Automated count 0.0 x10E3/uL 0.0-0.1 [facility] ([facility]) Morphology [Interpretation] in Blood Narrative Laboratory test result [facility] ([facility]) Nucleated erythrocytes/100 leukocytes [Ratio] in Blood by Automated count Laboratory test result [facility] ([facility]) Procedure Social History No Information Vital Signs ID Date Data Source UNK Name Value Range Interpretation Code Description Data Source(s) Systolic blood pressure 110 mm[Hg] 110 mm[Hg] [facility] Diastolic blood pressure 70 mm[Hg] 70 mm[Hg] [facility] ([facility]) Heart rate 64 /min 64 /min [facility] ([facility]) Respiratory rate 16 /min 16 /min [facility] ( [facility]) Heart rate 67 /min 67 /min [facility] ([facility]) Pattern: Regular Systolic blood pressure 106 mm[Hg] 106 mm[Hg] [facility] ([facility]) Patient Position: Supine; Cuff Location: Right Arm; Cuff Size: Standard Diastolic blood pressure 59 mm[Hg] 59 mm[Hg] [facility] ([facility]) Patient Position: Supine; Cuff Location: Right Arm; Cuff Size: Standard Body height 165 cm 165 cm [facility] ([facility]) Body mass index (BMI) [Ratio] 20.86 kg/m2 20.86 kg/m2 [facility] ([facility]) Body surface area Derived from formula 1.62 m2 1.62 m2 [facility] ([facility]) Oxygen saturation in Arterial blood by Pulse oximetry 85 % 85 % [facility] ([facility]) Room air Body weight 56.8 kg 56.8 kg [facility] ( [facility]) Heart rate 63 /min 63 /min [facility] ( [facility]) Pattern: Regular Oxygen saturation in Arterial blood by Pulse oximetry 86 % 86 % [facility] ([facility]) Room air Systolic blood pressure 105 mm[Hg] 105 mm[Hg] [facility] ([facility]) Patient Position: Supine; Cuff Location: Right Arm; Cuff Size: Standard Diastolic blood pressure 60 mm[Hg] 60 mm[Hg] [facility] ([facility]) Patient Position: Supine; Cuff Location: Right Arm; Cuff Size: Standard Body weight 86 kg 86 kg [facility] ( [facility]) Body height 160 cm 160 cm [facility] ( [facility]) Body mass index (BMI) [Ratio] 33.59 kg/m2 33.59 kg/m2 [facility] ([facility]) Body surface area Derived from formula 1.89 m2 1.89 m2 [facility] ([facility]) Diastolic blood pressure 60 mm[Hg] 60 mm[Hg] [facility] ([facility] ) Heart rate 76 /min 76 /min [facility] ([facility] ) Systolic blood pressure 90 mm[Hg] 90 mm[Hg] [facility] ([facility] ) Respiratory rate 16 /min 16 /min [facility] ( [facility] ) Body mass index (BMI) [Ratio] 21.33 kg/m2 21.33 kg/m2 [facility] ([facility]) Heart rate 66 /min 66 /min [facility] ( [facility]) Pattern: Regular Body weight 54.6 kg 54.6 kg [facility] ( [facility]) Body height 160 cm 160 cm [facility] ( [facility]) Oxygen saturation in Arterial blood by Pulse oximetry 83 % 83 % [facility] ([facility]) Room air Body surface area Derived from formula 1.56 m2 1.56 m2 [facility] ([facility]) Systolic blood pressure 113 mm[Hg] 113 mm[Hg] [facility] ([facility]) Patient Position: Supine; Cuff Location: Right Arm; Cuff Size: Standard Diastolic blood pressure 68 mm[Hg] 68 mm[Hg] [facility] ([facility]) Patient Position: Supine; Cuff Location: Right Arm; Cuff Size: Standard Heart rate 68 /min 68 /min [facility] ([facility]) Pattern: Regular Diastolic blood pressure 68 mm[Hg] 68 mm[Hg] [facility] ([facility]) Patient Position: Supine; Cuff Location: Right Arm; Cuff Size: Standard Oxygen saturation in Arterial blood by Pulse oximetry 88 % 88 % [facility] ([facility]) Room air Systolic blood pressure 109 mm[Hg] 109 mm[Hg] [facility] ([facility]) Patient Position: Supine; Cuff Location: Right Arm; Cuff Size: Standard Body weight 56.3 kg 56.3 kg [facility] ( [facility]) Body height 160 cm 160 cm [facility] ( [facility]) Body mass index (BMI) [Ratio] 21.99 kg/m2 21.99 kg/m2 [facility] ([facility]) Body surface area Derived from formula 1.58 m2 1.58 m2 [facility] ([facility])
--- NOTE | 2021-07-26 14:07 | REP ---
INDICATION: CHEST PAIN. COMPARISON: Multiple the latest 12/05/2020 TECHNIQUE: Portable FINDINGS: The technique utilized in obtaining the radiograph has magnified the cardiac silhouette and accentuated the interstitial markings. There is global cardiomegaly accentuated by technique. 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 There is no significant change in appearance of the lung best. No acute patchy parenchymal opacities or pleural effusions have developed. There is no significant change in the osseous structures. IMPRESSION: Chronic changes as described above. There is no evidence of acute cardiopulmonary disease. <Electronically signed by Adrian Lopez > 07/26/21 [id number]
[2021-07-26 14:33] LABS: BASO % 0.6 % (0.0-1.0); EOS # 0.1 10^3/uL (0.0-0.5); HEMATOCRIT 49.6 % (36.0-47.0); HEMOGLOBIN 16.3 g/dl (12.0-15.5); LYMPH # 1.8 10^3/uL (1.5-5.0); LYMPH % 27.6 % (24.0-44.0); MEAN CORPUSCULAR HEMOGLOBIN 32.9 pg (27.0-33.0); MEAN CORPUSCULAR HGB CONC 32.9 g/dl (32.0-36.5); MONO # 0.5 10^3/uL (0.0-0.8); MONO % 8.1 % (2.0-8.0); NEUTROPHILS % 61.5 % (36.0-66.0); PLATELET COUNT, AUTOMATED 198 10^3/uL (150-450); RED BLOOD COUNT 4.96 10^6/uL (4.00-5.40); WHITE BLOOD COUNT 6.5 10^3/uL (4.0-10.0)
[2021-07-26 15:13] LABS: ALBUMIN 3.8 GM/DL (3.2-5.2); ALT/SGPT 30 U/L (12-78); BILIRUBIN,DIRECT 0.2 MG/DL (0.0-0.2); BILIRUBIN,TOTAL 0.5 MG/DL (0.2-1.0); BLOOD UREA NITROGEN 17 MG/DL (7-18); CALCIUM LEVEL 9.1 MG/DL (8.5-10.1); CARBON DIOXIDE LEVEL 22 MEQ/L (21-32); CHLORIDE LEVEL 113 MEQ/L (98-107); CK-MB VALUE MASS 1.2 NG/ML (<3.6); CPK CREATINE PHOSPHOKINASE 71 U/L (26-192); CREATININE FOR GFR 0.82 MG/DL (0.55-1.30); FREE T4 1.02 NG/DL (0.76-1.46); GLOMERULAR FILTRATION RATE > 60.0 (>58); GLUCOSE, FASTING 88 MG/DL (70-100); LIPASE 81 U/L (73-393); MB/CK RELATIVE INDEX 1.69 (< OR =4); NT-PRO BNP 1288 PG/ML (<125); POTASSIUM SERUM 4.1 MEQ/L (3.5-5.1); SODIUM LEVEL 141 MEQ/L (136-145); TOTAL PROTEIN 6.6 GM/DL (6.4-8.2); TROPONIN I 0.02 NG/ML (< 0.10)
--- OUTSIDE RECORDS SUMMARY | 2021-07-26 15:19 | CCD ---
Author Author [facility] Organization [facility] Address Unknown Phone Unavailable Care Team Providers Care Hemmer Chainstitch Name Role Phone EDWIGE, Brian FLORES MD [...] J Virginia PA Unavailable Unavailable Trickey, J Virignia PA Unavailable Unavailable Trickey, J Virginia PA [...] J Virginia PA Unavailable Unavailable Trickey, J Virgiina PA Unavailable Unavailable Trickey, J Virginia PA [...] is protected by Article 27-F of the [facility] Public Health law. If you continue you may have access to information: Regarding HIV / AIDS; Provided by facilities licensed or operated by the [facility] Office of Mental Health; or Provided by the [facility] Office for People With Developmental Disabilities. If such information is present, then the following [facility] mandated warning applies: This information has been [...] law may result in a fine or mcc sentence or both. A general authorization for the release of medical or other information is NOT sufficient authorization for further disc losure. Family History Family Member Name Family Member Gender Family Member Status Date o f Status Description Data Source(s) Unknown Female Problem [facility] ([facility] Encounters Encounter Providers Location Date Indications Data Source(s ) Outpatient Attender: Virginia OROZCO Main office - [facility] 07/14/2021 08:15:00 AM EDT [facility] ([facility]) Outpatient Attender: MAYDA Olmoser: MARK GIBBONS MD _[id number] 05/29/2021 12:10:55 PM EDT [facility] Attender: MAYDA Kimble: MARK GIBBONS MD _[id number] 05/29/2021 11:59:51 AM EDT [facility] [place] Outpatient<td><content ID="_[id number]">Office Visit</content>
<content><content styleCode="xLabel xSecondary">Encounter Reason:</content><content ID="_[id number]" styleCode="xSecondary">Office Visit - Note for "Office Visit": [...] the pandemic. She had started working at [employer]. This was the first time she has [...] and Pas: NA</content></content>
<content><content styleCode="xSecondary xLabel">Encounter Diagnosis:</content><content ID="_[id number]" styleCode="xSecondary">Tetralogy of Fallot (Renamed from Fallot tetralogy)</content><content styleCode="xSecondary">, </content><content ID="_[id number]" styleCode="xSecondary">Pulmonary valve atresia, acquired </content><content styleCode="xSecondary">, </content><content ID="_[id number]" styleCode="xSecondary">AORTIC ARCH, ANOMOLY OF (RAA,DAA, RINGS) SUBCLAV </content><content styleCode="xSecondary">, </content><content [id number]" styleCode="xSecondary">Aortopulmonary collateral vessel</content><content styleCode="xSecondary">, </content><content ID="_[id number]" styleCode="xSecondary">ANEURYSM, ASCENDING, AORTIC (DILATION) </content></content></td><td><content styleCode="xSecondary">25-May-2021 8:00 </content><content styleCode="xLabel xSecondary"> To </content><content styleCode="xSecondary">07-Jun-2021 12:33</content>
<content styleCode="xSecondary">[facility]</content>
</td><td></td> [facility] 05/25/2021 08:19:01 AM EDT - 06/07/2021 12:33:40 [...] the pandemic. She had started working at [employer]. This was the first time she has [...] the pandemic. She had started working at [employer]. This was the first time she has [...] Fallot (745.2) Unspecified Diagnosis Outpatient Attender: MAYDA Olmoser: MARK GIBBONS MD _[id number] 05/19/2021 02:27:30 PM EDT [facility] [place] Outpatient Attender: MAYDA Kimble: MARK GIBBONS MD _[id number] 05/19/2021 02:27:29 PM EDT [facility] [place] Outpatient Attender: MAYDA Kimble: MARK GIBBONS MD _[id number] 05/17/2021 10:17:03 AM EDT [facility] [place] <td><content ID="_[id number]">Procedure Only</content>
<content><content styleCode="xSecondary xLabel">Encounter Diagnosis:</content><content ID="_[id number]" styleCode="xSecondary">Tetralogy of Fallot (Renamed from Fallot tetralogy)</content><content styleCode="xSecondary">, </content><content ID="_[id number]" styleCode="xSecondary">Pulmonary valve atresia, acquired </content><content styleCode="xSecondary">, </content> <content ID="_[id number]" styleCode="xSecondary">AORTIC ARCH, ANOMOLY OF (RAA,DAA, RINGS) SUBCLAV </content></content></td><td><content styleCode="xSecondary">14-Mar-2021 8:00 </content><content styleCode="xLabel xSecondary"> To </content><content styleCode="xSecondary">28-Mar-2021 11:28</content>
<content styleCode="xSecondary">Pediatric Cardiology [facility]</content>
</td><td></td>[facility]14[facility] 11:16[facility]01 AM EDT - 03/28/2021 11:28:27 AM EDT AORTIC ARCH, ANOMOLY OF (RAA,DAA, RINGS) SUBCLAV (747.21)Pulmonary valve atresia, acquired (424.3)Tetralogy of Fallot (745.2) [facility] ([facility]) AORTIC ARCH, ANOMOLY OF (RAA,DAA, RINGS) SUBCLAV (747.21) Pulmonary valve atresia, acquired (424.3 ) Tetralogy of Fallot (745.2) Outpatient Attender: ANN MALDONADO MD 03/14/2021 09:07:31 AM EDT [facility] [place] [facility] Outpatient Attender: ANN MALDONADOAdmitter: ANN MALDONADO 03/14/2021 06:04:00 AM EDT - 03/14/2021 01:55:00 PM EDT AORTOPULMONARY COLLATERAL VESSEL , TETRA LOGY OF FALLOT , PAL [facility] AORTOPULMONARY COLLATERAL VESSEL , TETRA LOGY OF FALLOT , PAL Patient discharged. <td><content ID="_[id number]">Office Visit</content>
<content><content styleCode="xLabel xSecondary">Encounter Reason:</content><content ID="_[id number]" styleCode="xSecondary">Office Visit - Note for "Office Visit": [...] the pandemic. She had started working at [employer]. This was the first time she has [...] cyanosis at baseline.</content></content>
<content><content styleCode="xSecondary xLabel">Encounter Diagnosis:</content><content ID="_[id number]" styleCode="xSecondary">Tetralogy of Fallot (Renamed from Fallot tetralogy)</content><content styleCode="xSecondary">, </content><content ID="_[id number]" styleCode="xSecondary">Palpitations</content><content styleCode="xSecondary">, </content><content ID="_[id number]" styleCode="xSecondary">Fatigue</content><content styleCode="xSecondary">, </content><content ID="_[id number]" styleCode="xSecondary">Cyanosis (Renamed from Blue color skin)</content><content styleCode="xSecondary">, </content><content ID="_[id number]" styleCode="xSecondary">Brain abscess (Renamed from Abscess of brain)</content><content styleCode="xSecondary">, </content><content ID="_[id number]" styleCode="xSecondary">Seizure disorder</content><content styleCode="xSecondary">, </content><content ID="_[id number]" styleCode="xSecondary">ANEURYSM, ASCENDING, AORTIC (DILATION) </content><content styleCode="xSecondary">, </content><content ID="_[id number]" styleCode="xSecondary">Aortopulmonary collateral vessel</content><content styleCode="xSecondary">, </content><content ID="_[id number]" styleCode="xSecondary">AORTIC ARCH, ANOMOLY OF (RAA,DAA, RINGS) SUBCLAV </content></content></td><td><content styleCode="xSecondary">09-Feb-2021 10:00 </content><content styleCode="xLabel xSecondary"> To </content><content styleCode="xSecondary">09-Feb-2021 10:55</content>
<content styleCode="xSecondary">[facility]</content>
</td><td></td>Outpatient Pediatric Cardiol [facility] 02/09/2021 10:00:00 AM EDT - 02/09/2021 10:55:27 [...] the pandemic. She had started working at [employer]. This was the first time she has [...] the pandemic. She had started working at [employer]. This was the first time she has [...] (745.2) Outpatient Attender: Virginia OROZCO Main office [facility] 01/13/2021 10:30:00 AM EDT [facility] ([facility]) <td><content ID="_[id number]">Procedure Only</content>
<content><content styleCode="xSecondary xLabel">Encounter Diagnosis:</content><content ID="_[id number]" styleCode="xSecondary">Palpitations</content></content></td><td><content styleCode="xSecondary">13-Dec-2020 17:00 </content><content styleCode="xLabel xSecondary"> To </content><content styleCode="xSecondary">07-Mar-2021 15:37</content>
<content styleCode="xSecondary">[facility]</content>
</td><td></td>Procedure Only [facility] 12/13/2020 05:00:00 PM EST - 03/07/2021 03:37:06 PM EDT Palpitations [facility] ([facility]) Palpitations <td><content ID="_[id number]">Procedure Only</content>
<content><content styleCode="xSecondary xLabel">Encounter Diagnosis:</content><content ID="_[id number]" styleCode="xSecondary">Tetralogy of Fallot (Renamed from Fallot tetralogy)</content></content></td><td><content styleCode="xSecondary"> 13-Dec-2020 11:00 </content><content styleCode="xLabel xSecondary"> To </content><content styleCode="xSecondary">13-Dec-2020 11:52</content>
<content styleCode="xSecondary">[facility]</content>
</td><td></td>Procedure Only [facility] 12/13/2020 11:00:00 AM EST - 12/13/2020 11:52:18 AM EST Tetralogy of Fallot (745.2) [facility] ([facility]) Tetralogy of Fallot (745.2) <td><content ID="_[id number]">Office Visit</content>
<content><content styleCode="xLabel xSecondary">Encounter Reason:</content><content ID="_[id number]" styleCode="xSecondary">Office Visit - Note for "Office Visit": [...] the pandemic. She had started working at [employer]. This was the first time she has [...] cyanosis at baseline.</content></content>< br/><content><content styleCode="xSecondary xLabel">Encounter Diagnosis:</content><content ID="_[id number]" styleCode="xSecondary">Tetralogy of Fallot (Renamed from Fallot tetralogy)</content><content styleCode="xSecondary">, </content><content ID="_[id number]" styleCode="xSecondary">Aortopulmonary collateral vessel</content><content styleCode="xSecondary">, </content><content ID="_[id number]" styleCode="xSecondary">ANEURYSM, ASCENDING, AORTIC (DILATION) </content><content styleCode="xSecondary">, </content><content ID="_[id number]" styleCode="xSecondary">Seizure disorder</content><content styleCode="xSecondary">, </content><content ID="_[id number]" styleCode="xSecondary">Brain abscess (Renamed from Abscess of brain)</content><content styleCode="xSecondary">, </content><content ID="_[id number]" styleCode="xSecondary">Cyanosis (Renamed from Blue color skin)</content><content styleCode="xSecondary">, </content><content ID="_[id number]" styleCode="xSecondary">Palpitations</content><content styleCode="xSecondary">, </content><content ID="_[id number]" styleCode="xSecondary">Fatigue</content></content></td><td><content styleCode="xSecondary">13-Dec-2020 11:00 </content><content styleCode="xLabel xSecondary"> To </content><content styleCode="xSecondary">13-Dec-2020 12:19</content>
<content styleCode="xSecondary">[facility]</content>
</td><td></td>Outpatient Pediatric [facility]iol y [facility] 12/13/2020 11:00:00 AM EST - 12/13/2020 12:19:01 [...] the pandemic. She had started working at [employer]. This was the first time she has [...] the pandemic. She had started working at [employer]. This was the first time she has [...] (745.2) Outpatient Attender: Virginia OROZCO Main office [facility] 10/19/2020 07:15:00 AM LIVAN HYDE ([facility]) Procedure Only<td><content ID="_[id number]">Procedure Only</content>
<content><content styleCode="xSecondary xLabel">Encounter Diagnosis:</content><content ID="_[id number]" styleCode="xSecondary">Tetralogy of Fallot (Renamed from Fallot tetralogy)</content></content></td><td><content styleCode="xSecondary"> 31-May-2020 13:58 </content><content styleCode="xLabel xSecondary"> To </content><content styleCode="xSecondary">31-May-2020 14:47</content>
<content styleCode="xSecondary">[facility]</content>
</td><td></td> [facility] 05/31/2020 01:58:08 PM EDT - 05/31/2020 02:47:13 PM EDT Tetralogy of Fallot (745.2) [facility] ([facility]) Tetralogy of Fallot (745.2) <td><content ID="_[id number]">Office Visit</content>
<content><content styleCode="xLabel xSecondary">Encounter Reason:</content><content ID="_[id number]" styleCode="xSecondary">Office Visit - Note for "Office Visit": [...] done well. She has started working at [employer]. This is the first time she has worked in ~20 years. She is enjoying it and is not having issues. She still follows with a neurologist for a history of brain abscess and seizures.</content></content>
<content><content styleCode="xSecondary xLabel">Encounter Diagnosis:</content><content ID="_[id number]" styleCode="xSecondary">Tetralogy of Fallot (Renamed from Fallot tetralogy)</content><content styleCode="xSecondary">, </content><content ID="_[id number]" styleCode="xSecondary">Pulmonary valve atresia, acquired </content><content styleCode="xSecondary">, </content><content ID="_[id number]" styleCode="xSecondary">AORTIC ARCH, ANOMOLY OF (RAA,DAA, RINGS) SUBCLAV </content><content styleCode="xSecondary">, </content><content ID="_[id number]" styleCode="xSecondary">Cyanosis (Renamed from Blue color skin)</content><content styleCode="xSecondary">, </content><content ID="_[id number]" styleCode="xSecondary">Brain abscess (Renamed from Abscess of brain)</content><content styleCode="xSecondary">, </content><content ID="_[id number]" styleCode="xSecondary">Seizure disorder</content><content styleCode="xSecondary">, </content><content ID="_[id number]" styleCode="xSecondary">ANEURYSM, ASCENDING, AORTIC (DILATION) (441.9)</content><content styleCode="xSecondary">, </content><content ID="_[id number]" styleCode="xSecondary">Aortopulmonary collateral vessel</content></content></td><td><content styleCode="xSecondary">31-May-2020 13:29 </content><content styleCode="xLabel xSecondary"> To </content><content styleCode="xSecondary">01-Jun-2020 14:44</content>
<content styleCode="xSecondary">[facility]</content>
</td><td></td>[facility] 05/31/2020 01:29:15 PM EDT - [...] done well. She has started working at [employer]. This is the first time she has [...] done well. She has started working at [employer]. This is the first time she has [...] Date Status Description Data Source(s) COVID-19 VACCINE KDW 11/01/2020 12:00:00 AM EST completed [facility] Vaccine Series Complete: YESThis Data wa s Submitted to [facility] [employer]. COVID-19 VACCINE Pfizer 10/11/2020 12:00:00 AM EST completed [facility] Vaccine Series Complete: NOThis Data was Submitted to [facility] [employer]. 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 Information Medicaid Secondary [id number] Medicare Primary [id number] MEDICAID HEA [id number] S [id number] MEDICARE MCA [id number] S [id number] MEDICARE MCA [id number] S [id number] [place]ED[place] [id number] SP [id number] MEDICAID [id number] SP [id number] Medicaid Medigap Part B [id number] 30.0 Self [id number] Medicare Part B Medicare Primary [id number] Self [id number] MEDICARE [id number] SP [id number] A Medicaid Medigap Part B [id number] 30.0 Self [id number] Medicare Part B Medicare Primary [id number] Self [id number] Medicaid Medigap Part B [id number] 30.0 Self [id number] Medicare Part B Medicare Primary [id number] Self [id number] Medicaid Medigap Part B [id number] 30.0 Self [id number] Medicare Part B Medicare Primary [id number] Self [id number] Medicaid Medigap Part B [id number] 30.0 Self [id number] Medicare Part B Medicare Primary [id number] Self [id number] Medicaid [place] Medigap Part B [id number] Self [id number] Medicare Natl Gov't Servi Medicare Primary [id number] Self 1 [id number] Medicaid Medigap Part B [id number] 30.0 Self [id number] Medicare Part B Medicare Primary [id number] Self [id number] Medicare Part B Medicare Primary [id number] Self Medicaid Medicaid 1 1 [id number] Self 1 1 Medicaid [place] [id number] Self Medicare Natl Gov't Servi Medicare Primary [id number] Self Medicare Medicare Primary [id number] Self PGBA [facility] [id number] 2 [id number] FOR LIFE UNAVAILABLE SP U NAVAILABLE [id number] [place] MEDICA[place] [id number] SP [id number] Y [id number] A MEDICARE [id number] SP [id number] Problems, Conditions, and Diagnoses No Information Surgeries/Procedures Procedure Description Date Indications Data Source(s) OFFICE OUTPATIENT VISIT 25 MINUTES 07/14/2021 12:00:00 AM EDT [facility] ([facility] ) ECG ROUTINE ECG W/LEAST 12 LDS W/I&R <td colspan="2"> ECG Routine, 12 Lead (49294)</td><td> Status: Completed 25-May-2021 </td> 05/25/2021 08:19:22 AM EDT - 05/25/2021 08:33:30 AM EDT [facility] ([facility]) OFFICE OUTPATIENT VISIT 25 MINUTES 05/25 08:00:00 AM EDT - 06/07/2021 12:33:40 PM EDT [facility] ([facility]) ECG ROUTINE ECG W/LEAST 12 LDS W/I&R <td colspan="2"> ECG Routine, 12 Lead (02651)</td><td> Status: Completed 09-Feb-2021 </td> 02/09/2021 09:59:12 AM EDT - 02/09/2021 10:10:38 AM EDT [facility] ([facility]) OFFICE OUTPATIENT VISIT 25 MINUTES 01/13/2021 12:00:00 AM EDT [facility] ([facility] ) COMPLETE TTHRC ECHO CONGENITAL CARDIAC ANOMALY <td col span="2"> 2D CONGENITAL COMPLETE (01078)</td><td> Status: Completed 13-Dec-2020 </td> 12/13/2020 11:19:00 AM EST - 12/13/2020 11:19:00 AM EST [facility] ([facility]) ECG ROUTINE ECG W/LEAST 12 LDS W/I&R <td colspan="2"> ECG Routine, 12 Lead (21891)</td><td> Status: Completed 13-Dec-2020 </td> 12/13/2020 11:03:36 AM EST - 12/13/2020 11:15:13 AM EST [facility] ([facility]) US echocardiogram for determining pericardial effusion (39587) <td colspan="2"> US echocardiogram for determining pericardial effusion (92545)</td><td> Status: Completed 31-May-2020 </td> 05/31/2020 02:01:00 PM EDT - 05/31/2020 03:15:58 PM EDT [facility] ([facility]) ECG ROUTINE ECG W/LEAST 12 LDS W/I&R <td colspan="2"> ECG Routine, 12 Lead (58186)</td><td> Status: Completed 31-May-2020 </td> 05/31/2020 01:29:31 PM EDT - 05/31/2020 01:42:35 PM EDT [facility] ([facility]) Results ID Date Data Source [id number] 07/06/2021 02:05:00 PM EDT [facility] ([facility] ) Name Value Range Interpretation Code Description Data Yuly rce(s) Supporting Document(s) Calcidiol [Mass/volume] in Serum or Plasma 52.5 ng/mL 30.0-100.0 [facility] ([facility] ) A courtesy copy of this report has been sent to [phone] Levetiracetam [Mass/volume] in Serum or Plasma 32.7 ug/mL 10.0-40.0 [facility] A courtesy copy of this report has been sent to [phone] Topiramate [Mass/volume] in Serum or Plasma 17.0 ug/mL 2.0-25.0 [facility] A courtesy copy of this report has been sent to [phone] Laboratory test finding (navigational concept) Laboratory test result [facility] ([facility]) A courtesy copy of this report has been sent to [phone] ID Date Data Source [id number] 03/14/2021 09:18:35 AM EDT [facility] Name Value Range Interpretation Code Description Data Yuly rce(s) Supporting Document(s) DIRECT O2 SAT 88.0 % (95.0-99.0) L [facility] ID Date Data Source [id number] 03/14/2021 09:18:35 AM EDT [facility] Name Value Range Interpretation Code Description Data Yuly rce(s) Supporting Document(s) SOURCE [facility] FIO2 [facility] DA PH 7.30 (7.35-7.45) L [facility] SPECIMEN RECEIVED UNLABELED,TESTING COMP LETED PER AUTHORIZATION [id number] PCO2 36 mm[Hg] (32-48) [facility] PO2 59 mm[Hg] (83-108) L [facility] O2 SATURATION 88.7 % (95.0-99.0) L [facility] BASE DEFICIT 8.2 mmol/L (0.0-2.0) H [facility] HCO3 17.2 mmol/L (21.0-29.0) L [facility] TOTAL CO2 18.3 mmol/L (23.0-32.0) L [facility] BODY TEMPERATURE 98.6 [degF] [facility] ID Date Data Source [id number] 03/14/2021 09:07:30 AM EDT [facility] Name Value Range Interpretation Code Description Data Yuly rce(s) Supporting Document(s) WBC 4.6 10*3/uL (4.1-11.0) [facility] [place] [facility] [place] RBC 4.81 10*6/uL (4.00-5.40) [facility] HGB 15.6 g/dL (12.0-16.0) [facility] HCT 46.7 % (36.0-47.0) [facility] PERFORMED AT [address] [place] [address] MCV 97.1 fL (80.0-95.0) H [facility] MCH 32.4 pg (27.0-32.0) H [facility] MCHC 33.4 g/dL (32.0-36.0) [facility] RDW 13.3 % (10.5-14.5) [facility] PLT 156 10*3/uL (150-450) [facility] MPV 7.7 fL (7.1-10.7) [facility] NEUT % 56.4 % (35.0-75.0) [facility] LYMPH % 33.3 % (16.0-52.0) [facility] MONO % 6.2 % (0.0-8.0) [facility] EOS % 3.4 % (0.0-5.0) [facility] BASO % 0.7 % (0.0-4.0) [facility] NEUT # 2.6 10*3/uL (1.8-7.7) [facility] LYMPH # 1.5 10*3/uL (1.2-4.8) [facility] MONO # 0.3 10*3/uL (0.0-0.8) [facility] Eosinophils [#/volume] in Blood by Automated count 0.2 10*3/uL (0.0-0 .5) [facility] BASO # 0.0 10*3/uL (0.0-0.2) [facility] ID Date Data Source [id number] 12/05/2020 12:00:00 AM EST [facility] Name Value Range Interpretation Code Description Data Yuly rce(s) Supporting Document(s) SARS-CoV2 Rapid Antigen Negative [facility] This lab was ordered by [facility] and reported by [facility]. ID Date Data Source [id number] 11/16/2020 01:46:00 PM EST [facility] ([facility]) Name Value Range Interpretation Code Description Data Yuly rce(s) Supporting Document(s) Topiramate [Mass/volume] in Serum or Plasma 12.2 ug/mL 2.0-25.0 [facility] ([facility]) This test was developed and its performa nce characteristics determined by [facility]. It has not been cleared or approved by the Food and Drug Administration. Detection Limit = 1.0 Calcidiol [Mass/volume] in Serum or Plasma 56.8 ng/mL 30.0-100.0 [facility] ([facility]) Vitamin D deficiency has been defined by the [place] of Medicine and an Endocrine Society practice guideline as a level of serum 25-OH vitamin D less than 20 ng/mL (1,2). The Endocrine Society went on to further define vitamin D insufficiency as a level between 21 and 29 ng/mL (2). 1. IOM ([place] of [employer]). 2010. Di etary reference intakes for calcium and D. [place]: The National [employer]. 2. Cindi RICHMOND, Marianne CHILDRESS, Esdras flores MARSH, et al. Evaluation, treatment, and prevention of vitamin D deficiency: an Endocrine Society clinical practice guideline. JCEM. 2010; 96(7):1911-30. Laboratory test finding (navigational concept) Laboratory test result [facility] ([facility]) Levetiracetam [Mass/volume] in Serum or Plasma 33.0 ug/mL 10.0-40.0 [facility] This test was developed and its performa nce characteristics determined by [facility]. It has not been cleared or approved by the Food and Drug Administration. ID Date Data Source [id number] 11/16/2020 01:46:00 PM EST [facility] ([facility]) Name Value Range Interpretation Code Description Data Yuly rce(s) Supporting Document(s) Glucose [Mass/volume] in Serum or Plasma 85 mg/dL 65-99 [facility] ([facility], ) Urea nitrogen [Mass/volume] in Serum or Plasma 13 mg/dL 6-24 [facility] ([facility]) Creatinine [Mass/volume] in Serum or Plasma 0.91 mg/dL 0.57-1.00 [facility] eGFR If NonAfricn Am 76 mL/min/1.73 [facility] NT ([facility]) eGFR If Africn Am 88 mL/min/1.73 [facility] Sodium [Moles/volume] in Serum or Plasma 138 mmol/L 134-144 [facility] ([facility]) Urea nitrogen/Creatinine [Mass Ratio] in Serum or Plasma 14 9 -23 [facility] ([facility]) Chloride [Moles/volume] in Serum or Plasma 107 mmol/L 96-106 [facility] ([facility]) Potassium [Moles/volume] in Serum or Plasma 5.0 mmol/L 3.5-5.2 [facility] ([facility]) Carbon dioxide, total [Moles/volume] in Serum or Plasma 18 mmol/L 20 -29 [facility] ([facility]) Calcium [Mass/volume] in Serum or Plasma 9.3 mg/dL 8.7-10.2 [facility] ([facility]) Albumin [Mass/volume] in Serum or Plasma 4.3 g/dL 3.8-4.8 [facility] ([facility]) Protein [Mass/volume] in Serum or Plasma 7.0 g/dL 6.0-8.5 [facility] ([facility]) Globulin [Mass/volume] in Serum by calculation 2.7 g/dL 1.5-4.5 [facility] ([facility]) Albumin/Globulin [Mass Ratio] in Serum or Plasma 1.6 1.2-2.2 [facility] ([facility]) Alkaline phosphatase [Enzymatic activity/volume] in Serum or Plasma 64 IU/L 39-117 [facility] ([facility]) Bilirubin.total [Mass/volume] in Serum or Plasma 0.3 mg/dL 0.0-1.2 [facility] Alanine aminotransferase [Enzymatic activity/volume] in Seru m or Plasma 11 IU/L 0-32 [facility] Aspartate aminotransferase [Enzymatic activity/volume] in Serum or Plasma 16 IU/L 0-40 [facility] ([facility], ) ID Date Data Source [id number] 11/16/2020 01:46:00 PM EST [facility] ([facility] ) Name Value Range Interpretation Code Description Data Yuly rce(s) Supporting Document(s) Erythrocytes [#/volume] in Blood by Automated count 5.35 x10E6/uL 3.7 7-5.28 [facility] ([facility] ) Leukocytes [#/volume] in Blood by Automated count 7.8 x10E3/uL 3.4-10 .8 [facility] ([facility] ) Erythrocyte mean corpuscular volume [Entitic volume] by Auto mated count 93 fL 79-97 [facility] Hematocrit [Volume Fraction] of Blood by Automated count 49.5 % 3 4.0-46.6 [facility] ([facility] ) Hemoglobin [Mass/volume] in Blood 15.9 g/dL 11.1-15.9 [facility] Erythrocyte mean corpuscular hemoglobin [Entitic mass] by Automated count 29.7 pg 26.6-33.0 [facility] ([facility] ) Erythrocyte mean corpuscular hemoglobin concentration [Mass/volume] by Automated count 32.1 g/dL 31.5-35.7 [facility] ([facility], ) Erythrocyte distribution width [Ratio] by Automated count 18.4 % 11.7-15.4 [facility] Platelets [#/volume] in Blood by Automated count 220 x10E3/uL 150-450 [facility] ([facility] ) Lymphocytes/100 leukocytes in Blood by Automated count 30 % [facility] ([facility] ) Neutrophils/100 leukocytes in Blood by Automated count 59 % [facility] ([facility], ) Monocytes/100 leukocytes in Blood by Automated count 8 % [facility] ([facility], ) Basophils/100 leukocytes in Blood by Automated count 1 % [facility] ([facility], ) Eosinophils/100 leukocytes in Blood by Automated count 2 % [facility] ([facility], ) Neutrophils [#/volume] in Blood by Automated count 4.7 x10E3/uL 1.4-7 .0 [facility] Immature cells [#/volume] in Blood Laboratory test result [facility] ([facility] ) Monocytes [#/volume] in Blood 0.6 x10E3/uL 0.1-0.9 [facility] ([facility]) Lymphocytes [#/volume] in Blood 2.3 x10E3/uL 0.7-3.1 [facility] Basophils [#/volume] in Blood by Automated count 0.0 x10E3/uL 0.0-0.2 [facility] ([facility]) Eosinophils [#/volume] in Blood by Automated count 0.2 x10E3/uL 0.0-0 .4 [facility] ([facility]) Immature granulocytes/100 leukocytes in Blood by Automated count 0 % [facility] Immature granulocytes [#/volume] in Blood by Automated count 0.0 x10E3/uL 0.0-0.1 [facility] ([facility]) Morphology [Interpretation] in Blood Narrative Laboratory test result [facility] ([facility]) Nucleated erythrocytes/100 leukocytes [Ratio] in Blood by Automated count Laboratory test result [facility] ([facility]) Procedure Social History No Information Vital Signs ID Date Data Source UNK Name Value Range Interpretation Code Description Data Source(s) Systolic blood pressure 110 mm[Hg] 110 [facility]Hg[facility] Diastolic blood pressure 70 mm[Hg] 70 mm[Hg] [facility] ([facility]) Heart rate 64 /min 64 /min [facility] ([facility]) Respiratory rate 16 /min 16 /min [facility] ( [facility]) Systolic blood pressure 106 mm[Hg] 106 mm[Hg] [...] m2 1.62 m2 [facility] ([facility]) Heart rate 67 /min 67 /min [facility] Pattern: Regular Oxygen saturation in Arterial blood by Pulse oximetry 85 % 85 % [facility] ([facility]) Room air Body weight 56.8 kg 56.8 kg [facility] ( [facility] Heart rate 63 /min 63 /min [facility] ([facility]) Pattern: Regular Oxygen saturation [...] blood pressure 60 mm[Hg] 60 mm[Hg] [facility] ([facility] ) Heart rate 76 /min 76 /min [facility] ([facility]) Respiratory rate 16 /min 16 /min [facility] ( [facility]) Systolic blood pressure 90 mm[Hg] 90 mm[Hg] M [facility] ([facility] ) Heart rate 66 /min 66 /min [facility] ( [facility]) Pattern: Regular Oxygen saturation in Arterial blood by Pulse oximetry 83 % 83 % [facility] ([facility]) Room air Systolic blood pressure 113 mm[Hg] 113 mm[Hg] [facility] ([facility]) Patient Position: Supine; Cuff Location: Right Arm; Cuff Size: Standard Diastolic blood pressure 68 mm[Hg] 68 mm[Hg] [facility] ([facility]) Patient Position: Supine; Cuff Location: Right Arm; Cuff Size: Standard Body weight 54.6 kg 54.6 kg [facility] ( [facility]) Body height 160 cm 160 cm [facility] ( [facility]) Body mass index (BMI) [Ratio] 21.33 kg/m2 21.33 kg/m2 [facility] ([facility]) Body surface area Derived from formula 1.56 m2 1.56 m2 [facility] ([facility]) Heart rate 68 /min 68 /min [facility] ([facility]) Pattern: Regular Oxygen saturation in Arterial blood by Pulse oximetry 88 % 88 % [facility] ([facility]) Room air Systolic blood pressure 109 mm[Hg] 109 mm[Hg] [facility] ([facility]) Patient Position: Supine; Cuff Location: Right Arm; Cuff Size: Standard Body weight 56.3 kg 56.3 kg [facility] ([facility] Body height 160 cm 160 cm [facility] ([facility] Body mass index (BMI) [Ratio] 21.99 kg/m2 21.99 kg/m2 [facility] ([facility]) Body surface area Derived from formula 1.58 m2 1.58 m2 [facility] ([facility]) Diastolic blood pressure 68 mm[Hg] 68 mm[Hg] [facility] ([facility]) Patient Position: Supine; Cuff Location: Right Arm; Cuff Size: Standard
[2021-07-26 15:26] LABS: RSV AMPLIFICATION NEGATIVE (NEGATIVE)
[2021-07-26] MEDS ORDERED: TOPI1CAP10 PO (19:37)
[2021-07-26 20:37] LABS: CK-MB VALUE MASS 2.8 NG/ML (<3.6); MB/CK RELATIVE INDEX 4.52 (< OR =4); TROPONIN I 0.23 NG/ML (< 0.10)
[2021-07-26 22:17] LABS: CK-MB VALUE MASS 2.5 NG/ML (<3.6); MB/CK RELATIVE INDEX 3.68 (< OR =4); TROPONIN I 0.42 NG/ML (< 0.10)
[2021-07-26] MEDS ORDERED: NS 1,000 ML IV ONE (23:30)
[2021-07-27 05:51] LABS: CK-MB VALUE MASS 3.6 NG/ML (<3.6); MB/CK RELATIVE INDEX 5.22 (< OR =4); TROPONIN I 0.62 NG/ML (< 0.10)
[2021-07-27] MEDS ORDERED: NS 1,000 ML IV SCH (07:00)
[2021-07-27 11:47] LABS: CK-MB VALUE MASS 2.8 NG/ML (<3.6); MB/CK RELATIVE INDEX 4.67 (< OR =4); TROPONIN I 0.27 NG/ML (< 0.10)
[2021-07-27 13:00] VITALS: BP 129/62
--- NOTE | 2021-07-27 18:53 | ECGEPIP ---
[facility] - ED Test Date: 2021-07-26 Pat Name: DEMOND TOPETE Department: Room: - Gender: Female Jira Developer: JCourtney : 1975 Requested By: Kristen Shultz Order Number: [id number] Reading MD: Corina Conroy Measurements Intervals [place] Rate: 68 P: 28 CT: 160 QRS: 101 QRSD: 104 T: -5 QT: 464 QTc: 493 Interpretive Statements Sinus rhythm with occasional premature ventricular complexes Right atrial enlargement Possible Right ventricular hypertrophy Nonspecific T wave abnormality Prolonged QT compared 09/10/17 Electronically Signed on 07-27-2021 18:53:14 EDT by Corina Conroy
--- NOTE | 2021-07-27 18:58 | ECGEPIP ---
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
--- NOTE | 2021-07-27 19:01 | ECGEPIP ---
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
--- NOTE | 2021-07-27 19:02 | ECGEPIP ---
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
== END 2021-07-27 13:09 | disposition home or self-care (01) ==
LOC: M ED 13:23
DX: R00.0 Tachycardia, unspecified (principal); R00.2 Palpitations; R79.9 Abnormal finding of blood chemistry, unspecified; Z88.1 Allergy status to other antibiotic agents; Z88.2 Allergy status to sulfonamides; Z87.891 Personal history of nicotine dependence; Z79.899 Other long term (current) drug therapy; R06.02 Shortness of breath

== ENCOUNTER → 2021-12-12 | Outpatient (CLI) | payer MEDICARE, MEDICAID ==
[~2021-12-12] MED LIST changes: +TOPI1CAP10 PO
[2021-12-12 14:28] LABS: C REACTIVE PROTEIN QUANTITATIV < 0.30 MG/DL (0.00-0.30); RHEUMATOID FACTOR QUANT 17.4 IU/ML (<15.0)
[2021-12-14 00:07] LABS: ANA (HEP2) Negative (.); CYCLIC CITRULLINATED PEPTIDE 9 units (0-19)
== END ==
LOC: M PLAIMG 10:36 → M PLARAD 10:36
PROVIDERS: ATTEND Family Medicine
DX: H20.9 Unspecified iridocyclitis (principal)

== ENCOUNTER → 2022-11-29 | Outpatient (CLI) | payer MEDICARE, MEDICAID ==
[2022-11-29 17:31] LABS: BASO % 0.5 % (0.0-1.0); EOS # 0.2 10^3/uL (0.0-0.5); EOS % 2.2 % (0.0-3.0); HEMOGLOBIN 17.4 g/dl (12.0-15.5); LYMPH # 2.1 10^3/uL (1.5-5.0); LYMPH % 26.7 % (24.0-44.0); MEAN CORPUSCULAR HEMOGLOBIN 32.2 pg (27.0-33.0); MEAN CORPUSCULAR HGB CONC 32.2 g/dl (32.0-36.5); MONO # 0.5 10^3/uL (0.0-0.8); MONO % 5.9 % (2.0-8.0); NEUTROPHILS # 5.1 10^3/uL (1.5-8.5); NEUTROPHILS % 64.4 % (36.0-66.0); PLATELET COUNT, AUTOMATED 204 10^3/uL (150-450); WHITE BLOOD COUNT 7.9 10^3/uL (4.0-10.0)
[2022-11-29 17:50] LABS: ERYTHROCYTE SEDIMENTATION RATE 7 mm/hr (0-20)
== END ==
LOC: M PLALAB 15:41 → M PLAIMG 15:41
PROVIDERS: ATTEND Family Medicine
DX: M54.9 Dorsalgia, unspecified (principal)

== ENCOUNTER → 2025-07-20 | Outpatient (CLI) | payer MEDICAID, MEDICARE ==
[~2025-07-20] MED LIST changes: -IBUP-1022 PO; +IBUP600T42 PO
== END ==
LOC: M WHC 07:27
PROVIDERS: ATTEND Family Medicine
DX: Z12.31 Encounter for screening mammogram for malignant neoplasm of breast (principal)